=== PATIENT | female | born 1960 | race African-American/Black ===

== ENCOUNTER 2017-07-14 14:13 | Emergency (ER) | payer OTHER ==
[2017-07-14 14:19] VITALS: BMI 29.2
--- NOTE | 2017-07-14 16:36 | PDOC ---
History of Present Illness - General History Source: Patient Exam Limitations: No Limitations - History of Present Illness Travel History: No Initial Comments: 07/14/17 16:33 56 yr female history of diverticulosis c/o one week LLQ pain getting worse. Pt saw one week ago for the pain dx with virus. Pt states pain is worse, no vomiting or diarrhea or constipation , positive chills. Timing/Duration: reports: constant, getting worse Abdominal Pain Onset Location: reports: LLQ Pain Radiation: reports: no radiation <Geri Soto - Last Filed: 07/14/17 19:06> <Naeem Patel - Last Filed: 07/14/17 22:53> - General Chief Complaint: Pain Stated Complaint: ABD PAIN Time Seen by Provider: 07/14/17 16:31 Past History - Past Medical History Anemia: Yes Asthma: Yes Cancer: No Cardiac Disorders: Yes (HEART MURMUR) CVA: No COPD: No CHF: No Dementia: No Diabetes: No GI Disorders: Yes (DIVERTICULOSIS) Disorders: No HTN: Yes Hypercholesterolemia: No Liver Disease: No Seizures: No Thyroid Disease: No - Surgical History Abdominal Surgery: No Appendectomy: No Cardiac Surgery: No Cholecystectomy: No Lung Surgery: No Neurologic Surgery: No Orthopedic Surgery: Yes (FOOT SURGERY AT 10 YEARS OLD,TONSILLECTOMY) - Immunization History Immunization Up to Date: Yes - Suicide/Smoking/Psychosocial Hx Smoking Status: No Smoking History: Never smoked Have you smoked in the past 12 months: No Number of Cigarettes Smoked Daily: 0 Hx Alcohol Use: No Drug/Substance Use Hx: No Substance Use Type: None Hx Substance Use Treatment: No <Geri Soto - Last Filed: 07/14/17 19:06> <Naeem Patel - Last Filed: 07/14/17 22:53> - Past Medical History Allergies/Adverse Reactions: Allergies Allergy/AdvReac Type Severity Reaction Status Date / Time shellfish derived Allergy Difficulty Verified 07/14/17 14:19 Breathing aspirin AdvReac Nausea Verified 07/14/17 14:19 Home Medications: Ambulatory Orders Lisinopril [Prinivil -] 40 mg PO DAILY #0 tablet 07/29/13 Albuterol Sulfate Inhaler - [Ventolin HFA Inhaler -] 2 inhaler IH DAILY PRN Amlodipine Besylate [Norvasc -] 5 mg PO DAILY 11/15/13 Lipase/Protease/Amylase [Zenpep Dr 15,000 Units Capsule] 1 each PO TID 11/15/13 Ciprofloxacin [Cipro (Restricted To Id)] 500 mg PO BID #20 tablet 07/14/17 Metronidazole [Flagyl -] 500 mg PO BID #20 tablet 07/14/17 Oxycodone HCl/Acetaminophen [Percocet 10-325 mg Tablet] 1 each PO Q6H PRN #20 tablet MDD 4 tabs 07/14/17 *Physical Exam - Vital Signs Last Vital Signs Temp Pulse Resp BP Pulse Ox 98.3 F 103 H 20 115/78 97 07/14/17 14:17 07/14/17 14:17 07/14/17 14:17 07/14/17 14:17 07/14/17 14:17 - Physical Exam General Appearance: Yes: Nourished, Appropriately Dressed HEENT: positive: EOMI, MANDO Neck: positive: Supple. negative: Tender Respiratory/Chest: positive: Lungs Clear, Normal Breath Sounds. negative: Chest Tender Cardiovascular: positive: Regular Rhythm, Regular Rate Gastrointestinal/Abdominal: positive: Normal Bowel Sounds, Tender (LLQ ), Soft, Tenderness. negative: Guarding, Rebound Musculoskeletal: positive: Normal Inspection Extremity: positive: Normal Capillary Refill, Normal Inspection, Normal Range of Motion Integumentary: positive: Normal Color, Dry, Warm Neurologic: positive: Fully Oriented, Alert, Normal Mood/Affect, Normal Response , Motor Strength 5/5 <Geri Soto - Last Filed: 07/14/17 19:06> - Vital Signs Last Vital Signs Temp Pulse Resp BP Pulse Ox 98.3 F 103 H 20 115/78 97 07/14/17 14:17 07/14/17 14:17 07/14/17 14:17 07/14/17 14:17 07/14/17 14:17 <Naeem Patel - Last Filed: 07/14/17 22:53> ED Treatment Course - LABORATORY CBC & Chemistry Diagram: 07/14/17 17:40 07/14/17 17:40 - Consult/PCP Time Called: 16:46 Case discussed with personal care physician: Jermaine Boo <Geri Soto - Last Filed: 07/14/17 19:06> - LABORATORY CBC & Chemistry Diagram: 07/14/17 17:40 07/14/17 17:40 - ADDITIONAL ORDERS Additional order review: Laboratory Results 07/14/17 07/14/17 19:20 17:40 Sodium 137 Potassium 3.7 D Chloride 103 Carbon Dioxide 28 Anion Gap 6 L BUN 12 D Creatinine 1.0 Creat Clearance w eGFR 56.95 Random Glucose 70 L Calcium 9.7 Total Bilirubin 0.3 D AST 15 ALT 19 Alkaline Phosphatase 127 H Total Protein 7.5 Albumin 3.8 Urine Color Straw Urine Appearance Clear Urine pH 7.0 Urine Protein Negative Urine Glucose (UA) Negative Urine Ketones Negative Urine Blood Negative Urine Nitrite Negative Urine Bilirubin Negative Urine Urobilinogen Negative Urine RBC 1 Urine WBC 1 Ur Epithelial Cells Rare 07/14/17 17:40 RBC 5.01 MCV 82.2 MCHC 34.2 RDW 13.8 MPV 7.7 Neutrophils % 50.8 Lymphocytes % 38.8 Monocytes % 8.5 Eosinophils % 0.5 Basophils % 1.4 - Medications Given in the ED: ED Medications Discontinued Medications Generic Name Dose Route Start Last Admin Trade Name Cindy PRN Reason Stop Dose Admin Acetaminophen 1,000 mg 07/14/17 16:46 07/14/17 18:09 Ofirmev Injection - IVPB 07/14/17 16:47 1,000 mg ONCE ONE Administration Diphenhydramine HCl 50 mg 07/14/17 20:02 07/14/17 20:22 Benadryl Injection - IVPUSH 07/14/17 20:03 50 mg ONCE ONE Administration Sodium Chloride 500 mls @ 500 mls/hr 07/14/17 20:03 07/14/17 20:22 Normal Saline - IV 07/14/17 21:02 500 mls/hr ASDIR STA Administration Methylprednisolone Sodium Succinate 125 mg 07/14/17 20:02 07/14/17 20:22 Solu-Medrol - IVPB 07/14/17 20:03 125 mg ONCE ONE Administration Morphine Sulfate 4 mg 07/14/17 18:06 07/14/17 18:09 Morphine Injection - IVPUSH 07/14/17 18:07 4 mg ONCE ONE Administration Sodium Chloride 1,000 ml 07/14/17 16:39 07/14/17 18:08 Normal Saline - IV 07/14/17 16:40 1,000 ml ONCE ONE Administration <Naeem Patel - Last Filed: 07/14/17 22:53> Medical Decision Making - Medical Decision Making 07/14/17 16:41 cc: LLQ pain for one week getting worse hx diverticulosis , states this feels the same as in the past denies fever or chills will check labs, IVF NPO, consult with pt's GI 07/14/17 16:50 pt states she was called in prescriptions to her pharmacy yesterday ( antibiotics by ) however pt was unable to pick them up . 07/14/17 17:11 second page to 07/14/17 17:25 07/14/17 19:06 signed out to GEORGE Benson awaiting lab results CT result. <Geri Soto - Last Filed: 07/14/17 19:06> *DC/Admit/Observation/Transfer <Geri Soto - Last Filed: 07/14/17 19:06> - Discharge Dispostion Admit: No <Naeem Patel - Last Filed: 07/14/17 22:53> Diagnosis at time of Disposition: Diverticulitis Qualifiers: Diverticulitis site: unspecified part of intestinal tract Diverticulitis bleeding: without bleeding Diverticulitis complication: without perforation or abscess Qualified Code(s): K57.92 - Diverticulitis of intestine, part unspecified, without perforation or abscess without bleeding - Discharge Dispostion Disposition: HOME Condition at time of disposition: Stable - Prescriptions Prescriptions: Ciprofloxacin [Cipro (Restricted To Id)] 500 mg PO BID #20 tablet Metronidazole [Flagyl -] 500 mg PO BID #20 tablet Oxycodone HCl/Acetaminophen [Percocet 10-325 mg Tablet] 1 each PO Q6H PRN #20 tablet MDD 4 tabs PRN Reason: Severe Pain - Referrals Referrals: Lance Garg MD [Primary Care Provider] - Jermaine Boo MD [Staff Physician] - - Patient Instructions Printed Discharge Instructions: DI for Diverticulitis Additional Instructions: Follow up with Dr. Boo this week for further evaluation. Take medications as prescribed. Do not drive, drink alcohol or operate heavy machinery while taking Percocet. Print Language: JORDANIAN
[2017-07-14] MEDS ORDERED: SODIUM CHLORIDE 0.9% 1000 ML INFUS.BAG IV ONE (16:39)
[2017-07-14] MEDS ORDERED: ACETAMINOPHEN 1000 MG/100 ML VIAL (NON FORMULARY) IVPB ONE (16:46)
[2017-07-14 17:48] LABS: BASOPHIL 1.4 % (0-2.0); EOSINOPHIL 0.5 % (0-4.5); MCH 28.1 pg (25.7-33.7); MCHC 34.2 g/dl (32.0-36.0); MEAN CELL VOLUME 82.2 fl (80-96); MEAN PLT VOLUME 7.7 fl (7.5-11.1); NEUTROPHILS 50.8 % (42.8-82.8); PLATELET COUNT 379 K/MM3 (134-434); RDW 13.8 % (11.6-15.6); WHITE BLOOD COUNT 6.8 K/mm3 (4.0-10.0)
[2017-07-14] MEDS ORDERED: morphine CARPU-JECT 4 MG/1 ML DISP.SYRIN IVPUSH ONE (18:06)
[2017-07-14] MEDS ORDERED: morphine CARPU-JECT 4 MG/1 ML DISP.SYRIN ONE (18:08)
[2017-07-14] MEDS ORDERED: ACETAMINOPHEN INJECTION 100 ML IVPB ONE (18:08)
--- NOTE | 2017-07-14 18:09 | PDOC ---
*Physical Exam - Vital Signs Last Vital Signs Temp Pulse Resp BP Pulse Ox 98.3 F 103 H 20 115/78 97 07/14/17 14:17 07/14/17 14:17 07/14/17 14:17 07/14/17 14:17 07/14/17 14:17 - Physical Exam Comments: 07/14/17 18:08 The patient was examined by [GEORGE Soto] under my direct supervision. I personally evaluated the patient. I concur with the above findings and the plan of care. ED Treatment Course - LABORATORY CBC & Chemistry Diagram: 07/14/17 17:40 07/14/17 17:40 - ADDITIONAL ORDERS Additional order review: 07/14/17 17:40 RBC 5.01 MCV 82.2 MCHC 34.2 RDW 13.8 MPV 7.7 Neutrophils % 50.8 Lymphocytes % 38.8 Monocytes % 8.5 Eosinophils % 0.5 Basophils % 1.4 - Consult/PCP Time Called: 16:46 Case discussed with personal care physician: Jermaine Boo
[2017-07-14 18:17] LABS: ALBUMIN 3.8 g/dl (3.4-5.0); ALK PHOS 127 U/L (45-117); ANION GAP 6 (8-16); BILIRUBIN,TOTAL 0.3 mg/dL (0.2-1.0); CALCIUM 9.7 mg/dL (8.5-10.1); CO2 28 mmol/L (21-32); GLUCOSE,RANDOM 70 mg/dL (74-106); SGOT/AST 15 U/L (15-37); SGPT/ALT 19 U/L (12-78); TOT PROT 7.5 g/dl (6.4-8.2)
[2017-07-14 19:29] LABS: URINE APPEARANCE CLEAR; URINE BILIRUBIN NEGATIVE (NEGATIVE); URINE BLOOD NEGATIVE (NEGATIVE); URINE COLOR STRAW; URINE GLUCOSE (UA) NEGATIVE (NEGATIVE); URINE KETONE NEGATIVE (NEGATIVE); URINE LEUK ESTERASE TRACE (NEGATIVE); URINE NITRITE NEGATIVE (NEGATIVE); URINE PROTEIN NEGATIVE (NEGATIVE); URINE UROBILINOGEN NEGATIVE mg/dL (0.2-1.0)
[2017-07-14 19:34] LABS: URINE RBC 1 /hpf (0-3); URINE WBC 1 /hpf (3-5)
[2017-07-14] MEDS ORDERED: methylPREDNISolone NA SUCC 125 MG/2 ML VIAL IVPB ONE (20:02)
[2017-07-14] MEDS ORDERED: SODIUM CHLORIDE 500 ML IV STA (20:03)
[2017-07-14] MEDS ORDERED: methylPREDNISolone NA SUCC 125 MG/2 ML VIAL ONE (20:07)
[2017-07-14] MEDS ORDERED: metroNIDAZOLE 500 MG TABLET PO ONE (22:28)
[2017-07-14] MEDS ORDERED: LEVOFLOXACIN 750 MG TABLET PO ONE (22:28)
[2017-07-14] MEDS ORDERED: metroNIDAZOLE 250 MG TABLET ONE (22:45)
[2017-07-14] MEDS ORDERED: LEVOFLOXACIN 250 MG TABLET (FP) ONE (22:46)
[2017-07-14] MEDS ORDERED: LEVOFLOXACIN 500 MG TABLET (FP) ONE (22:46)
[2017-07-14 23:09] VITALS: BP 121/72; PULSE 88; TEMP 98.6
== END 2017-07-14 23:09 | disposition home or self-care (01) ==
LOC: JER 14:13
PROC: 3E033GC Introduction of Other Therapeutic Substance into Peripheral Vein, Percutaneous Approach (ICD-10-PCS; principal; 2017-07-14)
PROC: 3E033NZ Introduction of Analgesics, Hypnotics, Sedatives into Peripheral Vein, Percutaneous Approach (ICD-10-PCS; 2017-07-14)
PROC: 3E03329 Introduction of Other Anti-infective into Peripheral Vein, Percutaneous Approach (ICD-10-PCS; 2017-07-14)
PROC: 3E0337Z Introduction of Electrolytic and Water Balance Substance into Peripheral Vein, Percutaneous Approach (ICD-10-PCS; 2017-07-14)
DX: K57.92 Diverticulitis of intestine, part unspecified, without perforation or abscess without bleeding (principal); R01.1 Cardiac murmur, unspecified; I10 Essential (primary) hypertension; J45.909 Unspecified asthma, uncomplicated
CPT/HCPCS: 36415; 74177-TC; 80053; 81003; 81015; 85025; 87086; 87186; 99284-25

== ENCOUNTER 2017-09-06 19:05 | Inpatient (IN) | payer OTHER ==
--- NOTE | 2017-09-06 19:17 | PDOC ---
History of Present Illness - History of Present Illness Initial Comments: 09/06/17 20:10 56 year old female, with significant past medical history of gallstones, IBS, diverticulosis, and endometriosis, who presents to the emergency room complaining of epigastric pain that started last night after eating dinner. She describes the pain as burning. She did not eat today secondary to the pain. She also notes right lower quadrant pain that is sharp. She denies nausea, vomiting. She notes that she has chronic diarrhea secondary to IBS. Her last bowel movement was yesterday and was loose. Denies fever, chills, nausea, vomiting. Denies hematuria, dysuria, urinary frequency. Denies chest pain, SOB, cough Denies constipation. PAST MEDICAL HISTORY: gallstones, IBS, diverticulosis, and endometriosis, PAST SURGICAL HISTORY: hysterectomy MEDICATIONS: reviewed ALLERGIES: Shellfish, aspirin PMD: Dr. Garg Gastro: Dr. Boo Review of Symptoms General: No fevers or chills, no weakness, no weight loss HEENT: No change in vision. No sore throat, No ear pain CardioVascular: No chest pain or shortness of breath Respiratory:No cough, or wheezing. Gastrointestinal: +epigastric pain, RLQ pain. no nausea, vomiting, or constipation, No rectal bleeding Genitourinary: No dysuria, hematuria, or frequency Musculoskeletal: No joint or muscle pain or swelling Neurologic: No headache, vertigo, dizziness or loss of consciousness Psychiatric: nor depression Skin: No rashes or easy bruising Endocrine: no increased thirst or abnormal weight change Allergic: no skin or latex allergy All other systems reviewed and normal Physical Exam General: Well-nourished well-developed individual, no acute distress HEENT: Throat: +dry mucous membranes. tonsils normal, no erythema or exudate Neck: Supple, no meningeal signs, no lymphadenopathy Eyes::Pupils equal reactive and round, extraocular motion intact Cardiac: S1-S2 normal, regular rate and rhythm, no murmurs rubs or gallops Respiratory: Lungs clear to auscultation bilateral Abdomen: +mildly tender to palpation over the RLQ and epigastric area. +Mildly distended. Soft, normal bowel sounds Skin: No rashes Psych: Normal mood and affect 09/06/17 21:39 <Marlys Moss - Last Filed: 09/06/17 21:39> - General History Source: Patient Exam Limitations: No Limitations - History of Present Illness Initial Comments: 09/06/17 20:21 A portion of this note was documented by scribe services under my direction. I have reviewed the details of the note, within reason, and agree with the documentation. The case summary and management plan written by me. Medical decision making: This is a 56-year-old female who comes in with abdominal pain. Patient has long history of irritable bowel syndrome. Patient on exam is tender epigastric as well as right lower quadrant. Patient was recently diagnosed with gallstones as well. We will order labs: CBC, comp and UA Gallbladder ultrasound 20:20 Was notified by nursing that patient's potassium was low at 2.8. 40 mEq of potassium were ordered IV as patient is feeling nauseous and will be able to tolerate a by mouth. In addition patient's alkaline phosphatase is mildly elevated and her urine was positive for blood Ultrasound of gallbladder and kidneys ordered 09/06/17 22:59 Ultrasound shows multiple gallstones and cholesterol granulomas with sludge. With positive Carson sign Discussed case with Dr. Williamson who well be surgical consult for probable removal of the gallbladder tomorrow. Due to patient's hypokalemia patient is being repleted initially IV but the IV was too uncomfortable so given oral potassium. A shot will be admitted to the hospitalist service for medical clearance and management of her hypokalemia. <Rodo Augustine I - Last Filed: 09/06/17 23:12> - General Chief Complaint: Pain Stated Complaint: ABD PAIN Time Seen by Provider: 09/06/17 19:17 Past History <Marlys Moss - Last Filed: 09/06/17 21:39> - Past Medical History Anemia: Yes Asthma: Yes Cancer: No Cardiac Disorders: Yes (HEART MURMUR) CVA: No COPD: No CHF: No Dementia: No Diabetes: No GI Disorders: Yes (DIVERTICULOSIS) Disorders: No HTN: Yes Hypercholesterolemia: No Liver Disease: No Seizures: No Thyroid Disease: No - Surgical History Abdominal Surgery: No Appendectomy: No Cardiac Surgery: No Cholecystectomy: No Lung Surgery: No Neurologic Surgery: No Orthopedic Surgery: Yes (FOOT SURGERY AT 10 YEARS OLD,TONSILLECTOMY) - Immunization History Immunization Up to Date: Yes - Suicide/Smoking/Psychosocial Hx Smoking Status: No Smoking History: Never smoked Have you smoked in the past 12 months: No Number of Cigarettes Smoked Daily: 0 Hx Alcohol Use: No Drug/Substance Use Hx: No Substance Use Type: None Hx Substance Use Treatment: No <Rodo Augustine I - Last Filed: 09/06/17 23:12> - Past Medical History Allergies/Adverse Reactions: Allergies Allergy/AdvReac Type Severity Reaction Status Date / Time shellfish derived Allergy Difficulty Verified 09/06/17 19:08 Breathing aspirin AdvReac Nausea Verified 09/06/17 19:08 Home Medications: Ambulatory Orders Lisinopril [Prinivil -] 40 mg PO DAILY #0 tablet 07/29/13 Amlodipine Besylate [Norvasc -] 5 mg PO DAILY 11/15/13 Lipase/Protease/Amylase [Creon Dr 3,000 Units Capsule] 1 each PO ASDIR 09/06/17 *Physical Exam - Vital Signs Last Vital Signs Temp Pulse Resp BP Pulse Ox 98.1 F 92 H 18 144/88 98 09/06/17 19:05 09/06/17 19:05 09/06/17 19:05 09/06/17 19:05 09/06/17 19:05 <Marlys Moss - Last Filed: 09/06/17 21:39> ED Treatment Course - LABORATORY CBC & Chemistry Diagram: 09/06/17 19:30 09/06/17 19:30 - ADDITIONAL ORDERS Additional order review: Laboratory Results 09/06/17 09/06/17 09/06/17 19:30 19:30 19:30 Sodium 138 Potassium 2.8 L* Chloride 103 Carbon Dioxide 25 Anion Gap 10 BUN 8 Creatinine 1.0 Creat Clearance w eGFR 56.95 Random Glucose 80 Calcium 9.7 Total Bilirubin 0.3 AST 29 ALT 27 Alkaline Phosphatase 104 H Creatine Kinase 103 Troponin I < 0.03 L Total Protein 7.4 Albumin 4.4 Lipase 44 Urine Color Yellow Urine Appearance Clear Urine pH 6.5 Ur Specific [place] 1.010 Urine Protein Negative Urine Glucose (UA) Negative Urine Ketones Negative Urine Blood 2+ H Urine Nitrite Negative Urine Bilirubin Negative Urine Urobilinogen 0.2 Ur Leukocyte Esterase Negative 09/06/17 19:30 RBC 4.59 MCV 83.0 MCHC 33.5 RDW 12.8 MPV 8.9 Neutrophils % 50.6 Lymphocytes % 39.5 Monocytes % 7.4 Eosinophils % 0.5 Basophils % 2.0 - Medications Given in the ED: ED Medications Discontinued Medications Generic Name Dose Route Start Last Admin Trade Name Cindy PRN Reason Stop Dose Admin Ketorolac Tromethamine 30 mg 09/06/17 19:28 09/06/17 19:30 Toradol Injection - IVPUSH 09/06/17 19:29 30 mg ONCE ONE Administration Morphine Sulfate 2 mg 09/06/17 19:28 09/06/17 19:40 Morphine Injection - IVPUSH 09/06/17 19:29 2 mg ONCE ONE Administration <Marlys Moss - Last Filed: 09/06/17 21:39> - LABORATORY CBC & Chemistry Diagram: 09/06/17 19:30 09/06/17 19:30 <Rodo Augustine I - Last Filed: 09/06/17 23:12> *DC/Admit/Observation/Transfer - Attestations Scribe Attestion: 09/06/17 20:10 Documentation prepared by HAYLEY Talley, acting as medical claims analyst for Rodo Augustine MD/DO. <Marlys Moss - Last Filed: 09/06/17 21:39> - Discharge Dispostion Admit: Yes <Rodo Augustine I - Last Filed: 09/06/17 23:12> Diagnosis at time of Disposition: Cholecystitis, Hypokalemia - Discharge Dispostion Condition at time of disposition: Stable - Referrals Referrals: Lance Garg MD [Primary Care Provider] - - Patient Instructions - Post Discharge Activity
[2017-09-06 19:19] VITALS: BMI 27.3
[2017-09-06] MEDS ORDERED: SODIUM CHLORIDE 1,000 ML IV ONE (19:27)
[2017-09-06] MEDS ORDERED: morphine CARPU-JECT 2 MG/1 ML DISP.SYRIN IVPUSH ONE (19:28)
[2017-09-06] MEDS ORDERED: KETOROLAC TROMETHAMINE 30 MG/1 ML VIAL IVPUSH ONE (19:28)
[2017-09-06] MEDS ORDERED: KETOROLAC TROMETHAMINE 30 MG/1 ML VIAL ONE (19:30)
[2017-09-06] MEDS ORDERED: morphine CARPU-JECT 2 MG/1 ML DISP.SYRIN ONE (19:31)
[2017-09-06 19:43] LABS: PH,URINE 6.5 (4.5-8); URINE APPEARANCE Clear; URINE BILIRUBIN Negative (NEGATIVE); URINE GLUCOSE (UA) Negative (NEGATIVE); URINE KETONE Negative (NEGATIVE); URINE LEUK ESTERASE Negative (NEGATIVE); URINE NITRITE Negative (NEGATIVE); URINE PROTEIN Negative (NEGATIVE); URINE UROBILINOGEN 0.2 (0.2-1.0)
[2017-09-06 19:44] LABS: URINE BLOOD 2+ (NEGATIVE); URINE COLOR YELLOW
[2017-09-06 19:48] LABS: EOSINOPHIL 0.5 % (0-4.5); MCH 27.8 pg (25.7-33.7); MCHC 33.5 g/dl (32.0-36.0); MEAN PLT VOLUME 8.9 fl (7.5-11.1); NEUTROPHILS 50.6 % (42.8-82.8); PLATELET COUNT 313 K/MM3 (134-434); RDW 12.8 % (11.6-15.6); WHITE BLOOD COUNT 5.3 K/mm3 (4.0-10.8)
[2017-09-06 20:00] LABS: ALBUMIN 4.4 g/dl (3.5-5.0); ALK PHOS 104 U/L (32-92); ANION GAP 10 (8-16); BILIRUBIN,TOTAL 0.3 mg/dl (0.2-1.0); CALCIUM 9.7 mg/dl (8.4-10.2); CO2 25 mmol/L (22-28); GLUCOSE,RANDOM 80 mg/dl (74-106); SGOT/AST 29 U/L (10-42); SGPT/ALT 27 U/L (10-40); TOT PROT 7.4 g/dl (6.4-8.3)
[2017-09-06 20:01] LABS: CPK 103 IU/L (26-192)
[2017-09-06 20:09] LABS: TROPONIN I (DFP) < 0.03 ng/ml (0.03-0.50)
[2017-09-06] MEDS: KCL 10 MEQ IVPB 10 MEQ/100 ML INFUS.BAG IVPB SCH ×2 (20:20→22:21)
[2017-09-06] MEDS ORDERED: KCL 10 MEQ IVPB 10 MEQ/100 ML INFUS.BAG IVPB ONE ×2 (20:23→22:05)
[2017-09-06 22:07] LABS: URINE BACTERIA FEW /hpf (NEGATIVE); URINE WBC 0-2 (0-5)
[2017-09-06] MEDS ORDERED: POTASSIUM CHLORIDE TABS 20 MEQ TABLET.ER (FP) PO ONE ×3 (22:33→22:45)
[2017-09-06] MEDS ORDERED: DEXTROSE 5%-0.45% SALINE 1,000 ML IV SCH (23:45)
[2017-09-07] MEDS: KCL 10 MEQ IVPB 10 MEQ/100 ML INFUS.BAG IVPB SCH (00:22)
--- NOTE | 2017-09-07 00:54 | HP ---
CHIEF COMPLAINT: Abdominal Pain, Back Pain PCP: Dr. Lance Garg HISTORY OF PRESENT ILLNESS: This is a 56 y/o woman with a past medical history of IBS, Trigemenial Neuralgia. Who presents to the ED with sharp, burning and cramping of the right lower abdomen x 2 days. Patient reports the pain started after eating food. Patient reports having nausea and vomiting, loose stools, with generalized weakness. Patient reports having pain to her right lower back/flank x 1 day, denies hematuria. Patient denies fever, chills, cough, SOB, CP, constipation, dysuria. ER course was notable for: (1) CTAP- cholelithiasis, no acute cholecystitis (2) K- 2.8 (3) Recent Travel: None PAST MEDICAL HISTORY: IBS Trigemenial Neuralgia Endometriosis Chronic Back Pain PAST SURGICAL HISTORY: Hysterectomy Social History: Smoking: Never Alcohol: None Drugs: None Family History: Mother: HTN, Migraines Father: OR, age 53 Hfaxgugwvjof-Dhuiz-Fjdzau: HTN, Asthma, DM, Migraines, Diverticulosis, Spinal Cyotosis Allergies shellfish derived Allergy (Verified 09/06/17 19:08) Difficulty Breathing aspirin Adverse Reaction (Verified 09/06/17 19:08) Nausea HOME MEDICATIONS: Home Medications Medication Instructions Recorded Lisinopril [Prinivil -] 40 mg PO DAILY #0 tablet 07/29/13 Amlodipine Besylate [Norvasc -] 5 mg PO DAILY 11/15/13 Lipase/Protease/Amylase [Ghislaine Calvillo 1 each PO ASDIR 09/06/17 3,000 Units Capsule] REVIEW OF SYSTEMS CONSTITUTIONAL: generalized weakness Absent: fever, chills, diaphoresis, malaise, loss of appetite, weight change HEENT: Absent: rhinorrhea, nasal congestion, throat pain, throat swelling, difficulty swallowing, mouth swelling, ear pain, eye pain, visual changes CARDIOVASCULAR: Absent: chest pain, syncope, palpitations, irregular heart rate, lightheadedness , peripheral edema RESPIRATORY: Absent: cough, shortness of breath, dyspnea with exertion, orthopnea, wheezing, stridor, hemoptysis GASTROINTESTINAL: Absent: abdominal pain, abdominal distension, nausea, vomiting, diarrhea, constipation, melena, hematochezia GENITOURINARY: Absent: dysuria, frequency, urgency, hesitancy, hematuria, flank pain, genital pain MUSCULOSKELETAL: myalgia, arthralgia,back pain, Absent: myalgia, arthralgia, joint swelling, back pain, neck pain SKIN: Absent: rash, itching, pallor HEMATOLOGIC/IMMUNOLOGIC: Absent: easy bleeding, easy bruising, lymphadenopathy, frequent infections ENDOCRINE: Absent: unexplained weight gain, unexplained weight loss, heat intolerance, cold intolerance NEUROLOGIC: Absent: headache, focal weakness or paresthesias, dizziness, unsteady gait, seizure, mental status changes, bladder or bowel incontinence PSYCHIATRIC: Absent: anxiety, depression, suicidal or homicidal ideation, hallucinations. PHYSICAL EXAMINATION Vital Signs - 24 hr 09/06/17 09/06/17 09/06/17 19:05 23:32 23:39 Temperature 98.1 F 98.1 F Pulse Rate 92 H 96 H Pulse Rate [ 90 Left] Respiratory 18 18 20 Rate Blood Pressure 144/88 128/85 Blood Pressure 131/85 [Right] O2 Sat by Pulse 98 100 100 Oximetry (%) 09/06/17 23:44 Temperature 98.1 F Pulse Rate 96 H Pulse Rate [ Left] Respiratory 20 Rate Blood Pressure 128/85 Blood Pressure [Right] O2 Sat by Pulse Oximetry (%) GENERAL: Awake, alert, and fully oriented, in no acute distress. HEAD: Normal with no signs of trauma. EYES: Pupils equal, round and reactive to light, extraocular movements intact, sclera anicteric, conjunctiva clear. No lid lag. EARS, NOSE, THROAT: Ears normal, nares patent, oropharynx clear without exudates. Dry mucous membranes. NECK: Normal range of motion, supple without lymphadenopathy, JVD, or masses. LUNGS: Breath sounds equal, clear to auscultation bilaterally. No wheezes, and no crackles. No accessory muscle use. HEART: Regular rate and rhythm, normal S1 and S2 without murmur, rub or gallop. ABDOMEN: Soft, not distended, normoactive bowel sounds, no guarding, no rebound , no masses. No hepatomegaly or splenomegaly. +generalized tenderness MUSCULOSKELETAL: Normal range of motion at all joints. No bony deformities or tenderness. No R-CVA tenderness. L- CVA tenderness, UPPER EXTREMITIES: 2+ pulses, warm, well-perfused. No cyanosis. No clubbing. No peripheral edema. LOWER EXTREMITIES: 2+ pulses, warm, well-perfused. No calf tenderness. No peripheral edema. NEUROLOGICAL: Cranial nerves II-XII intact. Normal speech. Normal gait. PSYCHIATRIC: Cooperative. Good eye contact. Appropriate mood and affect. SKIN: Warm, dry, normal turgor, no rashes or lesions noted, normal capillary refill. Laboratory Results - last 24 hr 09/06/17 09/06/17 09/06/17 19:30 19:30 19:30 WBC 5.3 RBC 4.59 Hgb 12.8 Hct 38.1 MCV 83.0 MCH 27.8 MCHC 33.5 RDW 12.8 Plt Count 313 MPV 8.9 Neutrophils % 50.6 Lymphocytes % 39.5 Monocytes % 7.4 Eosinophils % 0.5 Basophils % 2.0 Sodium 138 Potassium 2.8 L* Chloride 103 Carbon Dioxide 25 Anion Gap 10 BUN 8 Creatinine 1.0 Creat Clearance w eGFR 56.95 Random Glucose 80 Calcium 9.7 Total Bilirubin 0.3 AST 29 ALT 27 Alkaline Phosphatase 104 H Creatine Kinase Troponin I Total Protein 7.4 Albumin 4.4 Lipase 44 Urine Color Yellow Urine Appearance Clear Urine pH 6.5 Ur Specific [place] 1.010 Urine Protein Negative Urine Glucose (UA) Negative Urine Ketones Negative Urine Blood 2+ H Urine Nitrite Negative Urine Bilirubin Negative Urine Urobilinogen 0.2 Ur Leukocyte Esterase Negative Urine RBC 5-10 Urine WBC 0-2 Urine Bacteria Few 09/06/17 19:30 WBC RBC Hgb Hct MCV MCH MCHC RDW Plt Count MPV Neutrophils % Lymphocytes % Monocytes % Eosinophils % Basophils % Sodium Potassium Chloride Carbon Dioxide Anion Gap BUN Creatinine Creat Clearance w eGFR Random Glucose Calcium Total Bilirubin AST ALT Alkaline Phosphatase Creatine Kinase 103 Troponin I < 0.03 L Total Protein Albumin Lipase Urine Color Urine Appearance Urine pH Ur Specific [place] Urine Protein Urine Glucose (UA) Urine Ketones Urine Blood Urine Nitrite Urine Bilirubin Urine Urobilinogen Ur Leukocyte Esterase Urine RBC Urine WBC Urine Bacteria ASSESSMENT/PLAN: This is a 56 y/o woman with a PMHx of: IBS, Trigeminal Neuralgia. Admitted to M/ S Cholelithiasis, Acute Hypokalemia for further evaluation of their emergent condition. Plan: 1. Cholelithiasis - CTAP- multiple gallstones and cholesterol granulomas with a questionable sludge, without sonographic evidence of acute cholecystitis. Spa Assistant Manager reported positive Carson's sign. Slightly coarse echotexture of the liver. Rule out mild fatty infiltration. Small right and left renal angiomyolipoma - No leukocytosis, no lactic acidemia, pt is afebrile - Appreciate Surgical Consult - NPO - IVF - Morphine Sulfate prn - Repeat CBC, BMP in am 2. Hypokalemia - Likely secondary to excessive vomiting/loose stools - K-riders, KCL PO given in ED - Will repeat BMP at 2am, and replete as indicated - EKG- NSR no ST or TWI 3. IBS - Continue to monitor and treat with interventions accordingly - Appreciate GI Consult 4. Trigeminal Neuralgia - Continue to monitor 5. FEN - D51/2NS@75ml/hr - Replete K as indicated, monitor BMP - NPO 6. DVT Prophylaxis - OOB - SCDs - Heparin SQ Code Status: Full Code Dispo: Requires Inpatient Care Problem List - Problem (1) Cholelithiasis Code(s): K80.20 - CALCULUS OF GALLBLADDER W/O CHOLECYSTITIS W/O OBSTRUCTION (2) Hypokalemia Code(s): E87.6 - HYPOKALEMIA (3) IBS (irritable bowel syndrome) Code(s): K58.9 - IRRITABLE BOWEL SYNDROME WITHOUT DIARRHEA (4) Trigeminal neuralgia Code(s): G50.0 - TRIGEMINAL NEURALGIA (5) DVT prophylaxis Code(s): [id number] - Visit type - Emergency Visit Emergency Visit: Yes ED Registration Date: 09/06/17 Care time: The patient presented to the Emergency Department on the above date and was hospitalized for further evaluation of their emergent condition. - New Patient This patient is new to me today: Yes Date on this admission: 09/06/17 - Critical Care Critical Care patient: No
[2017-09-07] MEDS ORDERED: ONDANSETRON 4 MG/2 ML VIAL IVPUSH PRN (01:39)
[2017-09-07 02:51] LABS: ANION GAP 8 (8-16); CALCIUM 8.4 mg/dL (8.5-10.1); CO2 26 mmol/L (21-32); CREATININE 0.7 mg/dL (0.55-1.02); GLUCOSE,RANDOM 91 mg/dL (74-106)
[2017-09-07 07:53] LABS: ANION GAP 7 (8-16); CALCIUM 8.7 mg/dl (8.4-10.2); CO2 25 mmol/L (22-28); CREATININE 0.7 mg/dl (0.6-1.3); GLUCOSE,RANDOM 94 mg/dl (74-106); MAGNESIUM 1.5 mg/dL (1.8-2.4); PHOSPHOROUS 3.3 mg/dl (2.5-4.6)
[2017-09-07] MEDS ORDERED: MAGNESIUM SULFATE 2 GM in SODIUM CHLORIDE 100 ML IVPB ONE (07:55)
--- NOTE | 2017-09-07 07:55 | PN ---
Physical Exam: SUBJECTIVE: Patient seen and examined, reports ongoing generalized abdominal pain, localized to right upper quadrant. OBJECTIVE: patient is a 56 y/o woman with a past medical history of IBS, Trigemenial Neuralgia. patient was admitted from the emergency department for emergent condition. Vital Signs Period Temp Pulse Resp BP Sys/Ramachandran Pulse Ox Last 24 Hr 98.0 F-98.1 F 81-96 18-20 103-144/57-88 98-100 GENERAL: The patient is awake, alert, and fully oriented, in no acute distress. HEAD: Normal with no signs of trauma. EYES: PERRL, extraocular movements intact, sclera anicteric, conjunctiva clear. No ptosis. ENT: Ears normal, nares patent, oropharynx clear without exudates, moist mucous membranes. NECK: Trachea midline, full range of motion, supple. LUNGS: Breath sounds equal, clear to auscultation bilaterally, no wheezes, no crackles, no accessory muscle use. HEART: Regular rate and rhythm, S1, S2 without murmur, rub or gallop. ABDOMEN: Soft, + carson's sign, nondistended, normoactive bowel sounds, no guarding, no rebound, no hepatosplenomegaly, no masses. EXTREMITIES: 2+ pulses, warm, well-perfused, no edema. NEUROLOGICAL: Cranial nerves II through XII grossly intact. Normal speech, gait not observed. PSYCH: Normal mood, normal affect. SKIN: Warm, dry, normal turgor, no rashes or lesions noted Laboratory Results - last 24 hr CBC WBC 5.8 K/mm3 (4.0-10.8) 09/07/17 06:58 RBC 4.17 M/mm3 (3.60-5.2) 09/07/17 06:58 Hgb 12.0 GM/dl (10.7-15.3) 09/07/17 06:58 Hct 34.5 % (32.4-45.2) 09/07/17 06:58 MCV 82.7 fl (80-96) 09/07/17 06:58 MCH 28.9 pg (25.7-33.7) 09/07/17 06:58 MCHC 34.9 g/dl (32.0-36.0) 09/07/17 06:58 RDW 13.0 % (11.6-15.6) 09/07/17 06:58 Plt Count 297 K/MM3 (134-434) 09/07/17 06:58 MPV 8.6 fl (7.5-11.1) 09/07/17 06:58 Neutrophils % 53.3 % (42.8-82.8) 09/07/17 06:58 Lymphocytes % 37.6 % (8-40) 09/07/17 06:58 Monocytes % 7.4 % (3.8-10.2) 09/07/17 06:58 Eosinophils % 1.1 % (0-4.5) D 09/07/17 06:58 Basophils % 0.6 % (0-2.0) 09/07/17 06:58 CMP Sodium 143 mmol/L (136-145) 09/07/17 06:58 Potassium 3.5 mmol/L (3.5-5.1) D 09/07/17 06:58 Chloride 111 mmol/L (98-107) H 09/07/17 06:58 Carbon Dioxide 25 mmol/L (22-28) 09/07/17 06:58 Anion Gap 7 (8-16) L 09/07/17 06:58 BUN 6 mg/dl (7-18) L D 09/07/17 06:58 Creatinine 0.7 mg/dl (0.6-1.3) D 09/07/17 06:58 Creat Clearance w eGFR 56.95 (>60) 09/06/17 19:30 Random Glucose 94 mg/dl (74-106) 09/07/17 06:58 Calcium 8.7 mg/dl (8.4-10.2) 09/07/17 06:58 Phosphorus 3.3 mg/dl (2.5-4.6) 09/07/17 06:58 Magnesium 1.5 mg/dL (1.8-2.4) L 09/07/17 06:58 Total Bilirubin 0.4 mg/dl (0.2-1.0) D 09/07/17 07:15 Direct Bilirubin < 0.2 mg/dL (0.0-0.3) 09/07/17 07:15 AST 20 U/L (10-42) D 09/07/17 07:15 ALT 22 U/L (10-40) 09/07/17 07:15 Alkaline Phosphatase 82 U/L (32-92) D 09/07/17 07:15 Creatine Kinase 103 IU/L (26-192) 09/06/17 19:30 Troponin I < 0.03 ng/ml (0.03-0.50) L 09/06/17 19:30 Total Protein 6.0 g/dl (6.4-8.3) L 09/07/17 07:15 Albumin 3.5 g/dl (3.5-5.0) D 09/07/17 07:15 Total Amylase 59 U/L (25-115) 09/07/17 01:55 Lipase 44 U/L (22-51) 09/06/17 19:30 Active Medications Generic Name Dose Route Start Last Admin Trade Name Freq PRN Reason Stop Dose Admin Heparin Sodium (Porcine) 5,000 unit 09/07/17 10:00 09/07/17 09:25 Heparin - SQ 5,000 unit BID DANNIELLE Administration Potassium Chloride/Dextrose/Sod Cl 20 meq in 1,000 mls @ 75 mls/hr 09/07/17 08 :00 09/07/17 09:22 D5-1/2ns+20 Meq Kcl - IV 75 mls/hr ASDIR DANNIELLE Administration Morphine Sulfate 2 mg 09/06/17 23:50 09/07/17 08:02 Morphine Injection - IVPUSH 2 mg Q6H PRN Administration PAIN Ondansetron HCl 4 mg 09/07/17 01:39 Zofran Injection IVPUSH Q6H PRN NAUSEA AND/OR VOMITING IMAGING right upper quadrant ultraound- multiple gallstones and cholesterol granulomas with a questionable sludge, without sonographic evidence of acute cholecystitis. Manufacturing Director reported positive Carson's sign. Slightly coarse echotexture of the liver. Rule out mild fatty infiltration. Small right and left renal angiomyolipoma ASSESSMENT/PLAN: 1. GI Cholelithiasis - No leukocytosis, no lactic acidemia, pt is afebrile, patient is pending hida scan tommorow at 930am - Surgery, Dr Williamson consulted and following - keep npo, ivf abdominal pain - likely secondary to IBS - morphine Sulfate prn - appreciate GI input, Dr Sawyer 2) card hypertension - hold norvasc and lisinopril for labile b/p F/E/N - D51/2NS w/20meg kci @75ml/hr hypokalemia - repeat bmp 3.5, potassium added to ivf, kci 40meq x 1 ordered - npo-->ivf DVT Prophylaxis - OOB - SCDs - Heparin SQ Code Status: Full Code Dispo: Requires Inpatient Care Visit type - Emergency Visit Emergency Visit: Yes ED Registration Date: 09/07/17 Care time: The patient presented to the Emergency Department on the above date and was hospitalized for further evaluation of their emergent condition. - New Patient This patient is new to me today: No - Critical Care Critical Care patient: No - Discharge Referral Referred to [facility] Med P.C.: No
[2017-09-07 07:56] LABS: BASOPHIL 0.6 % (0-2.0); EOSINOPHIL 1.1 % (0-4.5); MCH 28.9 pg (25.7-33.7); MCHC 34.9 g/dl (32.0-36.0); MEAN CELL VOLUME 82.7 fl (80-96); MEAN PLT VOLUME 8.6 fl (7.5-11.1); NEUTROPHILS 53.3 % (42.8-82.8); PLATELET COUNT 297 K/MM3 (134-434); WHITE BLOOD COUNT 5.8 K/mm3 (4.0-10.8)
[2017-09-07] MEDS: morphine CARPU-JECT 2 MG/1 ML DISP.SYRIN IVPUSH PRN ×3 (08:02→23:52)
[2017-09-07] MEDS ORDERED: MAGNESIUM SULF 50% (8.12 MEQ/2 ML-1 GM VIAL) IVPB ONE (09:00)
[2017-09-07] MEDS ORDERED: POTASSIUM CHLORIDE TABS 20 MEQ TABLET.ER (FP) PO ONE (09:00)
[2017-09-07] MEDS: D5-1/2NS+20 MEQ KCL - 20 MEQ/1,000 ML INFUS.BAG IV SCH (09:22)
[2017-09-07] MEDS: HEPARIN NA (PORCINE) 5,000 UNITS/ML 1ML VIAL SQ SCH ×2 (09:25→21:30)
[2017-09-07 09:46] LABS: INR 1.01 (0.82-1.09); PROTHROMBIN TIME (PATIENT) 11.3 SEC (10.2-13.0)
[2017-09-07 10:51] LABS: ALBUMIN 3.5 g/dl (3.5-5.0); ALK PHOS 82 U/L (32-92); BILIRUBIN,TOTAL 0.4 mg/dl (0.2-1.0); SGOT/AST 20 U/L (10-42); SGPT/ALT 22 U/L (10-40)
[2017-09-07 10:52] LABS: BILIRUBIN,DIRECT < 0.2 mg/dL (0.0-0.3)
--- NOTE | 2017-09-07 12:28 | CON.GI ---
Consult Consult Specialty:: GI Reason for Consultation:: cholelithisis, abdominal pain. - History of Present Illness History of Present Illness: Chart reviewed, Consults noted. A 56 yof with history of recently diagnosed ?IBS, chronic LLQ abdominal pain, diverticulosis admitted with RUQ abdominal pain aggravated by fatty food. Noted to have cholelithiasis w/o signs of inflammation on US. Reports mild nausea and sharp pain unrelated to inspiration, movements. NO clear-cut alleviating factors. NO fever, chills, jaundice, vomiting, diarrhea, melena. Mildy elevated ALP, normal liver chemistry and bilirubin - History Source History Provided By: Patient Limitations to Obtaining History: No Limitations - Past Medical History Gastrointestinal: Yes: Diverticulitis ...: No - Alcohol/Substance Use Hx Alcohol Use: No - Smoking History Smoking history: Never smoked Have you smoked in the past 12 months: No Aproximately how many cigarettes per day: 0 Home Medications - Allergies Allergies/Adverse Reactions: Allergies Allergy/AdvReac Type Severity Reaction Status Date / Time shellfish derived Allergy Difficulty Verified 09/06/17 19:08 Breathing aspirin AdvReac Nausea Verified 09/06/17 19:08 - Home Medications Home Medications: Ambulatory Orders Lisinopril [Prinivil -] 40 mg PO DAILY #0 tablet 07/29/13 Amlodipine Besylate [Norvasc -] 5 mg PO DAILY 11/15/13 Lipase/Protease/Amylase [Ghislaine Calvillo 3,000 Units Capsule] 1 each PO ASDIR 09/06/17 Family Disease History - Family Disease History Family History: Unremarkable Review of Systems Findings/Remarks: stuart refer to H&P Physical Exam-GI Vital Signs: Vital Signs Temperature 98.0 F 09/07/17 05:43 Pulse Rate 81 09/07/17 05:43 Respiratory Rate 20 09/07/17 05:43 Blood Pressure 103/57 09/07/17 05:43 O2 Sat by Pulse Oximetry (%) 100 09/07/17 05:43 Constitutional: Yes: Well Nourished, No Distress, Calm Eyes: Yes: Conjunctiva Clear HENT: Yes: Atraumatic Neck: Yes: Supple Cardiovascular: Yes: Regular Rate and Rhythm Respiratory: Yes: Regular ...Auscultate: Yes: Normoactive Bowel Sounds ...Palpate: Yes: Soft, Other (pos. arredondo's). No: Firm/Rigid, Guarding ...Percussion: Yes: Other (generalized discomfort) Neurological: Yes: Alert, Oriented Labs: CBC, BMP 09/07/17 06:58 09/07/17 06:58 INR, PTT INR 1.01 (0.82-1.09) 09/07/17 06:58 CBCD WBC 5.8 K/mm3 (4.0-10.8) 09/07/17 06:58 RBC 4.17 M/mm3 (3.60-5.2) 09/07/17 06:58 Hgb 12.0 GM/dl (10.7-15.3) 09/07/17 06:58 Hct 34.5 % (32.4-45.2) 09/07/17 06:58 MCV 82.7 fl (80-96) 09/07/17 06:58 MCHC 34.9 g/dl (32.0-36.0) 09/07/17 06:58 RDW 13.0 % (11.6-15.6) 09/07/17 06:58 Plt Count 297 K/MM3 (134-434) 09/07/17 06:58 MPV 8.6 fl (7.5-11.1) 09/07/17 06:58 CMP Sodium 143 mmol/L (136-145) 09/07/17 06:58 Potassium 3.5 mmol/L (3.5-5.1) D 09/07/17 06:58 Chloride 111 mmol/L (98-107) H 09/07/17 06:58 Carbon Dioxide 25 mmol/L (22-28) 09/07/17 06:58 Anion Gap 7 (8-16) L 09/07/17 06:58 BUN 6 mg/dl (7-18) L D 09/07/17 06:58 Creatinine 0.7 mg/dl (0.6-1.3) D 09/07/17 06:58 Creat Clearance w eGFR 56.95 (>60) 09/06/17 19:30 Calcium 8.7 mg/dl (8.4-10.2) 09/07/17 06:58 Total Bilirubin 0.4 mg/dl (0.2-1.0) D 09/07/17 07:15 AST 20 U/L (10-42) D 09/07/17 07:15 ALT 22 U/L (10-40) 09/07/17 07:15 Alkaline Phosphatase 82 U/L (32-92) D 09/07/17 07:15 Total Protein 6.0 g/dl (6.4-8.3) L 09/07/17 07:15 Albumin 3.5 g/dl (3.5-5.0) D 09/07/17 07:15 Imaging - Results Ultrasound: Report Reviewed Problem List - Problems (1) Cholelithiasis Code(s): K80.20 - CALCULUS OF GALLBLADDER W/O CHOLECYSTITIS W/O OBSTRUCTION (2) Diverticulosis Code(s): K57.90 - DVRTCLOS OF INTEST, PART UNSP, W/O PERF OR ABSCESS W/O BLEED Assessment/Plan Doubt inflammatory or infectious pathology of the abdominal pain at this time. Agree with HIDA scan to r/o acute biliary process. Recommend EGD if HIDA negative. Clear liquid diet today. Follow HIDA results.
--- NOTE | 2017-09-07 12:33 | PN ---
Progress Note (short form) - Note Progress Note: surgery pt seen and examined. full consult dictated. 56f with multiple medical problems and pain syndromes (IBS, endometriosis, neuralgia, back pain), presents with epigastric pain and noted to have normal labs and u/s with gallstones. On exam the abd is soft, nd, no gaurding , with generalized mild tenderness. Plan- clinically doubt acute cholecystitis. HIDA ordered to r/o. should consider elective cholecystectomy once acute issues resolve. If HIDA positive will move in direction of surgery.
--- NOTE | 2017-09-07 13:23 | CONS ---
DATE OF CONSULTATION: 09/07/2017 REASON FOR CONSULTATION: Acute cholecystitis, cholelithiasis. This is an emergency room consultation as requested by the emergency room physician. The patient was subsequently admitted to the hospital floor. BRIEF HISTORY: This is a 56-year-old female with multiple longstanding history of chronic pain syndrome. She is currently being treated for irritable bowel syndrome on a special diet and taking pancreatic enzymes. She has also been diagnosed with trigeminal neuralgia as well as endometriosis and chronic back pain. She presents to [facility] complaining of 2 days of right lower quadrant abdominal pain mostly burning and radiating to her back. The pain also moved to her epigastrium as well as her right upper quadrant. While in the emergency room, she was noted to have normal labs and had an ultrasound done, which showed gallstones but no signs and stigmata of acute cholecystitis. She was admitted to the hospital for surgical evaluation. Overnight she feels better but still complains of burning pain on her right side. She denies a squeezing pain. She states occasionally it feels like being stabbed. She admitted to nausea and vomiting yesterday. REVIEW OF SYSTEMS: General: Denies fatigue or malaise. Cardiac: Denies chest pain or palpitations. Respiratory: Denies shortness of breath or wheeze. Gastrointestinal: As stated in HPI. Genitourinary: Denies dysuria. Musculoskeletal: Denies joint pain or joint swelling. Psychiatric: Denies anxiety, depression, or hearing voices. PHYSICAL EXAMINATION: General: This is a well-developed, well-nourished 56-year-old female in no distress. Vital Signs: She is afebrile. Her vital signs are stable. HEENT: Her head is normocephalic. Sclerae anicteric. Neck: Supple. Chest: Clear. Abdomen: Soft. It is nondistended. She has a Pfannenstiel incision from her previous hysterectomy. She has generalized mild tenderness without guarding and without rebound. Extremities: No edema. LABORATORY: On review of her laboratory, her potassium was low at 2.8. It is now 3.5. Her white blood cell count is normal. Her liver function tests have been unremarkable with the exception of an initial mildly elevated alkaline phosphatase of 104. A urinalysis is 2+ for blood with 5-10 red blood cells noted. Her imaging is as stated in HPI. ASSESSMENT: A 56-year-old female with chronic abdominal pain currently being treated who presents with more right-sided burning pain. Her ultrasound does confirm gallstones but no other signs of inflammation. Her labs are normal as well as her liver function tests. Her abdominal exam is not impressive for acute cholecystitis. At this point, I have low suspicion for acute cholecystitis. I will get a HIDA scan to rule that out. If it is positive, I would move in the direction of surgery. If the HIDA scan is negative, which I suspect, I then would recommend elective cholecystectomy once her acute issues have resolved. The HIDA scan would be more diagnostic if it was carried out for a full 4 years instead of only 2 hours. DO CLIFF CASTILLO/[id number]
[2017-09-07] MEDS ORDERED: PATIENT'S OWN MEDICATION (NON-FORMULARY) (Lipase/Protease/Amylase [Creon Dr 3,000 Units Ca PO SCH (13:30)
[2017-09-07 14:24] LABS: CHOLESTEROL 231 mg/dl
--- NOTE | 2017-09-07 15:54 | EKG ---
Test Reason : Blood Pressure : / mmHG Vent. Rate : 096 BPM Atrial Rate : 096 BPM P-R Int : 170 ms QRS Dur : 070 ms QT Int : 326 ms P-R-T Axes : 054 029 008 degrees QTc Int : 411 ms NORMAL SINUS RHYTHM BASELINE ARTIFACT NORMAL ECG WHEN COMPARED WITH ECG OF 11-NOV-2006 20:40, NONSPECIFIC T WAVE ABNORMALITY, WORSE IN INFERIOR LEADS REPEAT EKG IF CLINICALLY INDICATED Confirmed by AUGUSTINE BREWER MD ([id number]) on 09/07/2017 3:53:52 PM Referred By: TAMI Confirmed By:AUGUSTINE BREWER MD
[2017-09-08] MEDS: D5-1/2NS+20 MEQ KCL - 20 MEQ/1,000 ML INFUS.BAG IV SCH (08:02)
--- NOTE | 2017-09-08 08:42 | PN ---
Physical Exam: SUBJECTIVE: Patient seen and examined, reports feeling better,reports an improvement of abdominal pain. OBJECTIVE: patient is a 56 y/o woman with a past medical history of IBS, Trigemenial Neuralgia. patient was admitted from the emergency department for emergent condition. Vital Signs Period Temp Pulse Resp BP Sys/Ramachandran Pulse Ox Last 24 Hr 97.8 F-98.3 F 76-86 16-18 110-123/70-83 99-100 GENERAL: The patient is awake, alert, and fully oriented, in no acute distress. HEAD: Normal with no signs of trauma. EYES: PERRL, extraocular movements intact, sclera anicteric, conjunctiva clear. No ptosis. ENT: Ears normal, nares patent, oropharynx clear without exudates, moist mucous membranes. NECK: Trachea midline, full range of motion, supple. LUNGS: Breath sounds equal, clear to auscultation bilaterally, no wheezes, no crackles, no accessory muscle use. HEART: Regular rate and rhythm, S1, S2 without murmur, rub or gallop. ABDOMEN: Soft, nontender, nondistended, normoactive bowel sounds, no guarding, no rebound, no hepatosplenomegaly, no masses. EXTREMITIES: 2+ pulses, warm, well-perfused, no edema. NEUROLOGICAL: Cranial nerves II through XII grossly intact. Normal speech, gait not observed. PSYCH: Normal mood, normal affect. SKIN: Warm, dry, normal turgor, no rashes or lesions noted Laboratory Results - last 24 hr 09/07/17 09/07/17 09/07/17 06:58 06:58 06:58 PT with INR 11.3 INR 1.01 Total Bilirubin Direct Bilirubin AST ALT Alkaline Phosphatase Total Protein Albumin Triglycerides Cholesterol Total LDL Cholesterol HDL Cholesterol Anti-A Titer Cancelled Blood Type Cancelled B POSITIVE Antibody Screen Cancelled Spec Expiration Date Cancelled 09/07/17 09/07/17 09/07/17 07:15 07:15 10:46 PT with INR INR Total Bilirubin 0.4 D Direct Bilirubin < 0.2 AST 20 D ALT 22 Alkaline Phosphatase 82 D Total Protein 6.0 L Albumin 3.5 D Triglycerides 60 Cholesterol 231 Total LDL Cholesterol 165 HDL Cholesterol 54 Anti-A Titer Blood Type B POSITIVE Antibody Screen Negative Spec Expiration Date CMP Sodium 137 mmol/L (136-145) 09/08/17 07:00 Potassium 3.8 mmol/L (3.5-5.1) 09/08/17 07:00 Chloride 107 mmol/L (98-107) 09/08/17 07:00 Carbon Dioxide 25 mmol/L (22-28) 09/08/17 07:00 Anion Gap 5 (8-16) L 09/08/17 07:00 BUN < 4 mg/dl (7-18) L D 09/08/17 07:00 Creatinine 0.7 mg/dl (0.6-1.3) 09/08/17 07:00 Creat Clearance w eGFR > 60 (>60) 09/08/17 07:00 Random Glucose 87 mg/dl (74-106) 09/08/17 07:00 Calcium 8.6 mg/dl (8.4-10.2) 09/08/17 07:00 Phosphorus 3.1 mg/dl (2.5-4.6) 09/08/17 07:00 Magnesium 1.9 mg/dL (1.8-2.4) D 09/08/17 07:00 Total Bilirubin 0.5 mg/dl (0.2-1.0) D 09/08/17 07:00 Direct Bilirubin < 0.2 mg/dL (0.0-0.3) 09/07/17 07:15 AST 19 U/L (10-42) 09/08/17 07:00 ALT 17 U/L (10-40) D 09/08/17 07:00 Alkaline Phosphatase 81 U/L (32-92) 09/08/17 07:00 Creatine Kinase 103 IU/L (26-192) 09/06/17 19:30 Troponin I < 0.03 ng/ml (0.03-0.50) L 09/06/17 19:30 Total Protein 6.1 g/dl (6.4-8.3) L 09/08/17 07:00 Albumin 3.5 g/dl (3.5-5.0) 09/08/17 07:00 Triglycerides 60 mg/dl (35-160) 09/07/17 07:15 Cholesterol 231 mg/dl 09/07/17 07:15 Total LDL Cholesterol 165 mg/dl 09/07/17 07:15 HDL Cholesterol 54 mg/dl (29-89) 09/07/17 07:15 Total Amylase 59 U/L (25-115) 09/07/17 01:55 Lipase 44 U/L (22-51) 09/06/17 19:30 Active Medications Generic Name Dose Route Start Last Admin Trade Name Freq PRN Reason Stop Dose Admin Heparin Sodium (Porcine) 5,000 unit 09/07/17 10:00 09/07/17 21:30 Heparin - SQ 5,000 unit BID DANNIELLE Administration Potassium Chloride/Dextrose/Sod Cl 20 meq in 1,000 mls @ 75 mls/hr 09/07/17 08 :00 09/07/17 09:22 D5-1/2ns+20 Meq Kcl - IV 75 mls/hr ASDIR DANNIELLE Administration Morphine Sulfate 2 mg 09/06/17 23:50 09/07/17 23:52 Morphine Injection - IVPUSH 2 mg Q6H PRN Administration PAIN Non-Formulary Medication 1 each 09/07/17 13:30 Lipase/Protease/Amylase [Ghislaine Calvillo 3,000 Units Capsule] PO ASDIR DANNIELLE Ondansetron HCl 4 mg 09/07/17 01:39 Zofran Injection IVPUSH Q6H PRN NAUSEA AND/OR VOMITING IMAGING right upper quadrant ultraound- multiple gallstones and cholesterol granulomas with a questionable sludge, without sonographic evidence of acute cholecystitis. Senior Program Manager reported positive Carson's sign. Slightly coarse echotexture of the liver. Rule out mild fatty infiltration. Small right and left renal angiomyolipoma ASSESSMENT/PLAN: 1. GI Cholelithiasis - No leukocytosis, no lactic acidemia, pt is afebrile, patient is pending hida scan results - Surgery, Dr Williamson consulted and following abdominal pain - likely secondary to IBS - morphine Sulfate prn - GI consulted and following, Dr Sawyer 2) card hypertension - hold norvasc and lisinopril for labile b/p F/E/N - D51/2NS w/20meg kci @75ml/hr hypokalemia - potassium 3.8 wnl, strict monitoring - trial clear liquid diet DVT Prophylaxis - OOB - SCDs - Heparin SQ Code Status: Full Code Dispo: Requires Inpatient Care Visit type - Emergency Visit Emergency Visit: Yes ED Registration Date: 09/07/17 Care time: The patient presented to the Emergency Department on the above date and was hospitalized for further evaluation of their emergent condition. - New Patient This patient is new to me today: No - Critical Care Critical Care patient: No - Discharge Referral Referred to [facility] Med P.C.: No
[2017-09-08 08:45] LABS: BASOPHIL 1.1 % (0-2.0); EOSINOPHIL 1.8 % (0-4.5); MCH 28.9 pg (25.7-33.7); MCHC 34.8 g/dl (32.0-36.0); MEAN CELL VOLUME 83.1 fl (80-96); MEAN PLT VOLUME 8.4 fl (7.5-11.1); NEUTROPHILS 36.2 % (42.8-82.8); PLATELET COUNT 299 K/MM3 (134-434); RDW 12.6 % (11.6-15.6); WHITE BLOOD COUNT 5.1 K/mm3 (4.0-10.8)
[2017-09-08 09:09] LABS: ALBUMIN 3.5 g/dl (3.5-5.0); ALK PHOS 81 U/L (32-92); ANION GAP 5 (8-16); BILIRUBIN,TOTAL 0.5 mg/dl (0.2-1.0); CALCIUM 8.6 mg/dl (8.4-10.2); CO2 25 mmol/L (22-28); CREATININE 0.7 mg/dl (0.6-1.3); GLUCOSE,RANDOM 87 mg/dl (74-106); MAGNESIUM 1.9 mg/dL (1.8-2.4); PHOSPHOROUS 3.1 mg/dl (2.5-4.6); SGOT/AST 19 U/L (10-42); SGPT/ALT 17 U/L (10-40); TOT PROT 6.1 g/dl (6.4-8.3)
[2017-09-08] MEDS: HEPARIN NA (PORCINE) 5,000 UNITS/ML 1ML VIAL SQ SCH ×2 (13:00→22:29)
--- NOTE | 2017-09-08 13:54 | PN ---
Progress Note (short form) - Note Progress Note: surgery HIDA scan appears to be negative with filling at 90 minutes. If official read confirms this would r/o acute cholecystitis as the source of her continued pain. Can consider elective cholecystectomy when well from her acute problem
[2017-09-08] MEDS: morphine CARPU-JECT 2 MG/1 ML DISP.SYRIN IVPUSH PRN ×2 (14:37→23:04)
[2017-09-09] MEDS: D5-1/2NS+20 MEQ KCL - 20 MEQ/1,000 ML INFUS.BAG IV SCH (08:50)
[2017-09-09] MEDS: HEPARIN NA (PORCINE) 5,000 UNITS/ML 1ML VIAL SQ SCH ×2 (10:10→21:27)
[2017-09-09] MEDS: LACTOBACILLUS ACIDOPHILUS 1 EACH TAB (FP) PO SCH (10:10)
[2017-09-09] MEDS ORDERED: DICYCLOMINE HCL 20 MG TABLET PO PRN (11:31)
--- NOTE | 2017-09-09 11:36 | PN ---
Physical Exam: SUBJECTIVE: Patient seen and examined, reports intermittent cramping, patient is tolerating clear liquid diet. OBJECTIVE: patient is a 56 y/o woman with a past medical history of IBS, Trigemenial Neuralgia. patient was admitted from the emergency department for emergent condition. Vital Signs Period Temp Pulse Resp BP Sys/Ramachandran Pulse Ox Last 24 Hr 97.9 F-99.3 F 81-84 16-18 110-118/69-73 100-100 GENERAL: The patient is awake, alert, and fully oriented, in no acute distress. HEAD: Normal with no signs of trauma. EYES: PERRL, extraocular movements intact, sclera anicteric, conjunctiva clear. No ptosis. ENT: Ears normal, nares patent, oropharynx clear without exudates, moist mucous membranes. NECK: Trachea midline, full range of motion, supple. LUNGS: Breath sounds equal, clear to auscultation bilaterally, no wheezes, no crackles, no accessory muscle use. HEART: Regular rate and rhythm, S1, S2 without murmur, rub or gallop. ABDOMEN: Soft, diffuse abdominal tenderness, nondistended, normoactive bowel sounds, no guarding, no rebound, no hepatosplenomegaly, no masses. EXTREMITIES: 2+ pulses, warm, well-perfused, no edema. NEUROLOGICAL: Cranial nerves II through XII grossly intact. Normal speech, gait not observed. PSYCH: Normal mood, normal affect. SKIN: Warm, dry, normal turgor, no rashes or lesions noted Active Medications Generic Name Dose Route Start Last Admin Trade Name Freq PRN Reason Stop Dose Admin Heparin Sodium (Porcine) 5,000 unit 09/07/17 10:00 09/09/17 10:10 Heparin - SQ 5,000 unit BID DANNIELLE Administration Potassium Chloride/Dextrose/Sod Cl 20 meq in 1,000 mls @ 75 mls/hr 09/07/17 08 :00 09/09/17 08:50 D5-1/2ns+20 Meq Kcl - IV 75 mls/hr ASDIR DANNIELLE Administration Lactobacillus Acidophilus 1 tab 09/09/17 10:00 09/09/17 10:10 Bacid - PO 1 tab DAILY DANNIELLE Administration Morphine Sulfate 2 mg 09/06/17 23:50 09/08/17 23:04 Morphine Injection - IVPUSH 2 mg Q6H PRN Administration PAIN Non-Formulary Medication 1 each 09/07/17 13:30 Lipase/Protease/Amylase [Ghislaine Calvillo 3,000 Units Capsule] PO ASDIR DANNIELLE Ondansetron HCl 4 mg 09/07/17 01:39 Zofran Injection IVPUSH Q6H PRN NAUSEA AND/OR VOMITING IMAGING right upper quadrant ultraound- multiple gallstones and cholesterol granulomas with a questionable sludge, without sonographic evidence of acute cholecystitis. Television Audio Engineer reported positive Carson's sign. Slightly coarse echotexture of the liver. Rule out mild fatty infiltration. Small right and left renal angiomyolipoma ASSESSMENT/PLAN: 1. GI Cholelithiasis - No leukocytosis, no lactic acidemia, pt is afebrile, hida scan excludes cystic duct obstruction and acute choleystitis - Surgery, Dr Williamson consulted and following abdominal pain - likely secondary to IBS , start bentyl prn - morphine Sulfate prn - GI consulted and following, Dr Sawyer 2) card hypertension - hold norvasc and lisinopril for labile b/p F/E/N - D51/2NS w/20meg kci @75ml/hr hypokalemia - potassium 3.8 wnl, strict monitoring - trial clear liquid diet DVT Prophylaxis - OOB - SCDs - Heparin SQ Code Status: Full Code Dispo: Requires Inpatient Care Visit type - Emergency Visit Emergency Visit: Yes ED Registration Date: 09/09/17 Care time: The patient presented to the Emergency Department on the above date and was hospitalized for further evaluation of their emergent condition. - New Patient This patient is new to me today: No - Critical Care Critical Care patient: No - Discharge Referral Referred to [facility] Med P.C.: No
[2017-09-09] MEDS: DICYCLOMINE HCL 10 MG CAPSULE PO PRN (12:04)
[2017-09-09] MEDS: morphine CARPU-JECT 2 MG/1 ML DISP.SYRIN IVPUSH PRN ×2 (13:23→20:58)
[2017-09-10 05:20] VITALS: BP 115/76; PULSE 78; TEMP 97.5
[2017-09-10] MEDS: HEPARIN NA (PORCINE) 5,000 UNITS/ML 1ML VIAL SQ SCH (09:53)
[2017-09-10] MEDS: LACTOBACILLUS ACIDOPHILUS 1 EACH TAB (FP) PO SCH (09:54)
[2017-09-10] MEDS: D5-1/2NS+20 MEQ KCL - 20 MEQ/1,000 ML INFUS.BAG IV SCH (09:54)
[2017-09-10] MEDS: DICYCLOMINE HCL 10 MG CAPSULE PO PRN (09:57)
--- NOTE | 2017-09-10 12:45 | DS ---
Physical Exam: SUBJECTIVE: Patient seen and examined, reports feeling better, tolerating diet. OBJECTIVE: This is a 56 y/o woman with a past medical history of IBS, Trigemenial Neuralgia. Who presents to the ED with sharp, burning and cramping of the right lower abdomen x 2 days. Patient reports the pain started after eating food. Patient reports having nausea and vomiting, loose stools, with generalized weakness. Patient reports having pain to her right lower back/flank x 1 day, denies hematuria. Patient denies fever, chills, cough, SOB, CP, constipation, dysuria. ER course was notable for: (1) CTAP- cholelithiasis, no acute cholecystitis Vital Signs Period Temp Pulse Resp BP Sys/Ramachandran Pulse Ox Last 24 Hr 97.5 F-98.2 F 78-89 18-18 115-129/76-82 97-100 PHYSICAL EXAM GENERAL: The patient is awake, alert, and fully oriented, in no acute distress. HEAD: Normal with no signs of trauma. EYES: PERRL, extraocular movements intact, sclera anicteric, conjunctiva clear. ENT: Ears normal, nares patent, oropharynx clear without exudates, moist mucous membranes. NECK: Trachea midline, full range of motion, supple. LUNGS: Breath sounds equal, clear to auscultation bilaterally, no wheezes, no crackles, no accessory muscle use. HEART: Regular rate and rhythm, S1, S2 without murmur, rub or gallop. ABDOMEN: Soft, nontender, nondistended, normoactive bowel sounds, no guarding, no rebound, no hepatosplenomegaly, no masses. EXTREMITIES: 2+ pulses, warm, well-perfused, no edema. NEUROLOGICAL: Cranial nerves II through XII grossly intact. Normal speech, gait not observed. PSYCH: Normal mood, normal affect. SKIN: Warm, dry, normal turgor, no rashes or lesions noted. LABS CBC WBC 5.1 K/mm3 (4.0-10.8) 09/08/17 07:00 RBC 4.06 M/mm3 (3.60-5.2) 09/08/17 07:00 Hgb 11.7 GM/dl (10.7-15.3) 09/08/17 07:00 Hct 33.7 % (32.4-45.2) 09/08/17 07:00 MCV 83.1 fl (80-96) 09/08/17 07:00 MCH 28.9 pg (25.7-33.7) 09/08/17 07:00 MCHC 34.8 g/dl (32.0-36.0) 09/08/17 07:00 RDW 12.6 % (11.6-15.6) 09/08/17 07:00 Plt Count 299 K/MM3 (134-434) 09/08/17 07:00 MPV 8.4 fl (7.5-11.1) 09/08/17 07:00 Neutrophils % 36.2 % (42.8-82.8) L D 09/08/17 07:00 Lymphocytes % 54.0 % (8-40) H D 09/08/17 07:00 Monocytes % 6.9 % (3.8-10.2) 09/08/17 07:00 Eosinophils % 1.8 % (0-4.5) 09/08/17 07:00 Basophils % 1.1 % (0-2.0) 09/08/17 07:00 CMP Sodium 137 mmol/L (136-145) 09/08/17 07:00 Potassium 3.8 mmol/L (3.5-5.1) 09/08/17 07:00 Chloride 107 mmol/L (98-107) 09/08/17 07:00 Carbon Dioxide 25 mmol/L (22-28) 09/08/17 07:00 Anion Gap 5 (8-16) L 09/08/17 07:00 BUN < 4 mg/dl (7-18) L D 09/08/17 07:00 Creatinine 0.7 mg/dl (0.6-1.3) 09/08/17 07:00 Creat Clearance w eGFR > 60 (>60) 09/08/17 07:00 Random Glucose 87 mg/dl (74-106) 09/08/17 07:00 Calcium 8.6 mg/dl (8.4-10.2) 09/08/17 07:00 Phosphorus 3.1 mg/dl (2.5-4.6) 09/08/17 07:00 Magnesium 1.9 mg/dL (1.8-2.4) D 09/08/17 07:00 Total Bilirubin 0.5 mg/dl (0.2-1.0) D 09/08/17 07:00 Direct Bilirubin < 0.2 mg/dL (0.0-0.3) 09/07/17 07:15 AST 19 U/L (10-42) 09/08/17 07:00 ALT 17 U/L (10-40) D 09/08/17 07:00 Alkaline Phosphatase 81 U/L (32-92) 09/08/17 07:00 Creatine Kinase 103 IU/L (26-192) 09/06/17 19:30 Troponin I < 0.03 ng/ml (0.03-0.50) L 09/06/17 19:30 Total Protein 6.1 g/dl (6.4-8.3) L 09/08/17 07:00 Albumin 3.5 g/dl (3.5-5.0) 09/08/17 07:00 Triglycerides 60 mg/dl (35-160) 09/07/17 07:15 Cholesterol 231 mg/dl 09/07/17 07:15 Total LDL Cholesterol 165 mg/dl 09/07/17 07:15 HDL Cholesterol 54 mg/dl (29-89) 09/07/17 07:15 Total Amylase 59 U/L (25-115) 09/07/17 01:55 Lipase 44 U/L (22-51) 09/06/17 19:30 IMAGING right upper quadrant ultraound- multiple gallstones and cholesterol granulomas with a questionable sludge, without sonographic evidence of acute cholecystitis. Laundry Agent reported positive Carson's sign. Slightly coarse echotexture of the liver. Rule out mild fatty infiltration. Small right and left renal angiomyolipoma HOSPITAL COURSE: Patient was admitted from the emergency department for abdominal pain. Patient does have a significant past medical history of cholelithiasis. Patient has no leukocytosis, no lactic acidemia, pt is afebrile, hida scan excludes cystic duct obstruction and acute choleystitis. Surgery, Dr Williamson consulted and following. Patient's abdominal pain secondary to IBS. Patient was started on bentyl prn with relief. GI consulted and followed patient throughout admission, Dr Sawyer. Patient has a past medical history of hypertension, norvasc and lisinopril held for labile b/p. PLAN - discharge with soft bland diet then advance as tolerated - bentyl prn for abdominal crampin - strict follow up with GI within 2 weeks - strict follow up with surgery, Dr Williamson within 3 weeks Date of Admission:09/09/17 Date of Discharge: 09/10/17 Minutes to complete discharge: 45 Discharge Summary Reason For Visit: ABD PAIN Current Active Problems Cholecystitis (Acute) Cholelithiasis (Acute) DVT prophylaxis (Acute) Hypokalemia (Acute) IBS (irritable bowel syndrome) (Acute) Trigeminal neuralgia (Acute) Condition: Improved - Instructions Diet, Activity, Other Instructions: continue all medications as prescribed continue taking acidophilus daily continue bentyl as needed for abdominal cramping continue bland diet then advance as tolerated please follow up with GI within 2 weeks please follow up with surgeon, Dr Williamson within 3 weeks if any new or persistent symptoms develop please return to the emergency department Referrals: Miguel A Sawyer MD [Staff Physician] - 2 Weeks Lance Garg MD [Primary Care Provider] - Navneet Williamson MD [Staff Physician] - 3 Weeks Disposition: HOME - Home Medications Comprehensive Discharge Medication List: Ambulatory Orders RX: Lisinopril [Prinivil -] 40 mg PO DAILY #0 tablet 07/29/13 RX: Amlodipine Besylate [Norvasc -] 5 mg PO DAILY 11/15/13 Lipase/Protease/Amylase [Ghislaine Calvillo 3,000 Units Capsule] 1 each PO ASDIR 09/06/17 This patient is new to me today: Yes Date on this admission: 09/13/17 Emergency Visit: No Critical Care patient: No - Discharge Referral Referred to [facility].C.: No
== END 2017-09-10 16:20 | disposition home or self-care (01) | DRG 446 ==
LOC: FER 19:05 → FM/S 23:39 → UNDOADMOB 23:39 → INTOOBSV 23:39 → FM/S 09-07 01:36 → OBSVTOIN 09-09 14:47
PROVIDERS: ADMIT Internal Medicine; ATTEND Nurse Practitioner Family
DX: K80.20 Calculus of gallbladder without cholecystitis without obstruction (principal); K57.90 Diverticulosis of intestine, part unspecified, without perforation or abscess without bleeding; K58.9 Irritable bowel syndrome, unspecified; E87.6 Hypokalemia; G50.0 Trigeminal neuralgia; M54.9 Dorsalgia, unspecified; G89.4 Chronic pain syndrome; I10 Essential (primary) hypertension; D17.71 Benign lipomatous neoplasm of kidney
CPT/HCPCS: 36415; 71010-TC; 76700-TC; 78226-TC; 80048; 80053; 80061; 80076; 81003; 81015; 82150; 82550; 83690; 83735; 84100; 84484; 85025; 85610; 86850; 86900; 86901; 93005; 99284-25; A9537; G0378; J1644

== ENCOUNTER 2017-11-10 18:35 | Emergency (ER) | payer OTHER ==
[2017-11-10 19:01] VITALS: BP 138/92; PULSE 88; TEMP 97.8; BMI 27.3
--- NOTE | 2017-11-10 19:19 | PDOC ---
History of Present Illness - General History Source: Patient Exam Limitations: No Limitations - History of Present Illness Initial Comments: 11/10/17 19:33 The patient is a 57 year old female, with a significant past medical history of IBS, diverticulosis, cholecystitis, and trigeminal neuralgia, who presents to the emergency department with, right lower quadrant abdominal pain beginning approx. 3 hours ago. The patient reports she visited her GI Dr. Sawyer for a check up prior to arrival and as she was standing in the lobby after leaving the GI she suddenly began to experience the right lower quadrant abdominal pain. The patient reports the right lower quadrant abdominal pain as intermittent and describes the abdominal pain a sharp stabbing pain with a hot burning sensation. The patient reports associated symptoms of nausea without vomiting. The patient reports her last bowel movement was last night and reports diarrhea described as non bloody, non bilious. The patient reports her last meal was at approx. 1 pm this afternoon. The patient denies sick contacts. She denies recent fevers, chills, headache or dizziness. She denies recent, constipation. She denies recent dysuria, frequency, urgency or hematuria. She denies recent chest pain or shortness of breath. Allergies: shellfish derived, aspirin Past surgical history: hysterectomy Primary Care Physician: Dr. Lance Garg Gastro: Dr. Sawyer <Gigi Poole - Last Filed: 11/10/17 20:05> <Becki Esteves - Last Filed: 11/10/17 23:00> - General Chief Complaint: Pain Stated Complaint: SHARP PAIN TO RIGHT LOWER ABDOMEN Time Seen by Provider: 11/10/17 19:18 Past History <Gigi Poole - Last Filed: 11/10/17 20:05> - Past Medical History Anemia: Yes Asthma: Yes Cancer: No Cardiac Disorders: Yes (HEART MURMUR) CVA: No COPD: No CHF: No Dementia: No Diabetes: No GI Disorders: Yes (,ibs) Disorders: No HTN: Yes Hypercholesterolemia: No Liver Disease: No Seizures: No Thyroid Disease: No - Surgical History Abdominal Surgery: No Appendectomy: No Cardiac Surgery: No Cholecystectomy: No Lung Surgery: No Neurologic Surgery: No Orthopedic Surgery: Yes (FOOT SURGERY AT 10 YEARS OLD,TONSILLECTOMY) - Immunization History Immunization Up to Date: Yes - Suicide/Smoking/Psychosocial Hx Smoking Status: No Smoking History: Never smoked Have you smoked in the past 12 months: No Number of Cigarettes Smoked Daily: 0 Information on smoking cessation initiated: No Hx Alcohol Use: No Drug/Substance Use Hx: No Substance Use Type: None Hx Substance Use Treatment: No <Becki Esteves - Last Filed: 11/10/17 23:00> - Past Medical History Allergies/Adverse Reactions: Allergies Allergy/AdvReac Type Severity Reaction Status Date / Time shellfish derived Allergy Difficulty Verified 11/10/17 18:37 Breathing aspirin AdvReac Nausea Verified 11/10/17 18:37 Home Medications: Ambulatory Orders Lisinopril [Prinivil -] 40 mg PO DAILY #0 tablet 07/29/13 Amlodipine Besylate [Norvasc -] 10 mg PO DAILY 11/15/13 Dicyclomine HCl [Bentyl -] 20 mg PO Q6H PRN #30 capsule 09/10/17 Lactobacillus Acidophilus [Bacid -] 1 tab PO DAILY #30 tab 09/10/17 Amitriptyline HCl 75 mg PO HS 11/10/17 Ibuprofen/Famotidine [Duexis 800-26.6 mg Tablet] 1 tab PO BID 11/10/17 Lipase/Protease/Amylase [Creon Dr 36,000 Units Capsule] 1 cap PO TID 11/10/17 Metaxalone [Skelaxin] 800 mg PO HS 11/10/17 Polyethylene Glycol 3350 [Miralax (For Daily Use) -] 17 gm PO DAILY 11/10/17 Review of Systems - Review of Systems Comments:: 11/10/17 19:34 CONSTITUTIONAL: Absent: fever, no chills, no fatigue EYES: Absent: visual changes ENT: Absent: ear pain, no sore throat CARDIOVASCULAR: Absent: chest pain, no palpitations RESPIRATORY: Absent: cough, no SOB GI: Present: +Right lower quadrant abdominal pain. +Nausea. +Diarrhea. Absent: no vomiting, no constipation, GENITOURINARY: Absent: dysuria, no frequency, no hematuria MUSKULOSKELETAL: Absent: back pain, no arthralgia, no myalgia SKIN: Absent: rash NEURO: Absent: headache <Gigi Poole - Last Filed: 11/10/17 20:05> *Physical Exam - Vital Signs Last Vital Signs Temp Pulse Resp BP Pulse Ox 97.8 F 88 16 138/92 100 11/10/17 18:37 11/10/17 18:37 11/10/17 18:37 11/10/17 18:37 11/10/17 18:37 - Physical Exam Comments: 11/10/17 19:34 GENERAL: The patient is awake, alert, and fully oriented. HEAD: Normal with no signs of trauma. EYES: Pupils equal, round and reactive to light, extraocular movements intact, sclera anicteric, conjunctiva clear with no pallor. ENT: Ears normal, nares patent, oropharynx clear without exudates. Moist mucous membranes. NECK: Normal range of motion, supple without lymphadenopathy, JVD, or masses. LUNGS: Breath sounds equal, clear to auscultation bilaterally. No wheeze/ crackles. HEART: Regular rate and rhythm, normal S1 and S2 without murmur or rub. ABDOMEN: +Hyperactive bowel sounds. +Generalized tenderness. +Moderate Suprapubic tenderness and right lower quadrant tenderness. Soft/nondistended. No guarding or rebound. No palpable masses. No hepatosplenomegaly. No Carson's sign. Back: +Mild right flank tenderness. EXTREMITIES: Normal range of motion, no edema. No clubbing or cyanosis. No cords, erythema, or tenderness. NEUROLOGICAL: Cranial nerves II through XII grossly intact. Normal speech, normal gait. PSYCH: Normal mood, normal affect. SKIN: Warm, Dry, normal turgor, no rashes or lesions noted. <Gigi Poole - Last Filed: 11/10/17 20:05> - Vital Signs Last Vital Signs Temp Pulse Resp BP Pulse Ox 97.8 F 88 16 138/92 100 11/10/17 18:37 11/10/17 18:37 11/10/17 18:37 11/10/17 18:37 11/10/17 18:37 <Becki Esteves - Last Filed: 11/10/17 23:00> ED Treatment Course - LABORATORY CBC & Chemistry Diagram: 11/10/17 19:38 11/10/17 19:38 <Gigi Poole - Last Filed: 11/10/17 20:05> - LABORATORY CBC & Chemistry Diagram: 11/10/17 19:38 11/10/17 19:38 <Becki Esteves - Last Filed: 11/10/17 23:00> *DC/Admit/Observation/Transfer - Attestations Scribe Attestion: 11/10/17 19:42 Documentation prepared by Gigi Poole, acting as medical laboratory scientist for Becki Esteves MD. <Gigi Poole - Last Filed: 11/10/17 20:05> <Becki Esteves - Last Filed: 11/10/17 23:00> Diagnosis at time of Disposition: Cholelithiasis Qualifiers: Cholelithiasis location: gallbladder Cholecystitis presence: without cholecystitis Biliary obstruction: without biliary obstruction Qualified Code(s) : K80.20 - Calculus of gallbladder without cholecystitis without obstruction - Discharge Dispostion Disposition: HOME Condition at time of disposition: Stable - Referrals Referrals: Miguel A Sawyer MD [Staff Physician] - - Patient Instructions Printed Discharge Instructions: Gallstones Additional Instructions: Continue diet as previously Continue pain medications as previously prescribed Call Dr. Sawyer's office to make follow-up appointment within the next week Return to ER if you have severe abdominal pain/vomiting/
[2017-11-10 20:04] LABS: PH,URINE 7.5 (4.5-8); URINE APPEARANCE Clear; URINE BILIRUBIN Negative (NEGATIVE); URINE BLOOD 1+ (NEGATIVE); URINE COLOR YELLOW; URINE GLUCOSE (UA) Negative (NEGATIVE); URINE KETONE Negative (NEGATIVE); URINE NITRITE Negative (NEGATIVE); URINE PROTEIN Negative (NEGATIVE); URINE UROBILINOGEN 0.2 (0.2-1.0)
[2017-11-10 20:10] LABS: BASO % 4.6 % (0-2.0); EOS % 0.5 % (0-4.5); HEMATOCRIT 39.7 % (32.4-45.2); LYMPH % 47.1 % (8-40); MCHC 32.7 g/dl (32.0-36.0); MEAN CELL VOLUME 85.6 fl (80-96); MEAN PLT VOLUME 8.6 fl (7.5-11.1); MONO % 7.9 % (3.8-10.2); NEUT % 39.9 % (42.8-82.8); PLATELET COUNT 343 K/MM3 (134-434); RBC 4.64 M/mm3 (3.60-5.2); RDW 12.7 % (11.6-15.6); WHITE BLOOD COUNT 4.8 K/mm3 (4.0-10.8)
[2017-11-10 20:18] LABS: URINE WBC 0-2 (0-5)
[2017-11-10 20:26] LABS: ALBUMIN 4.4 g/dl (3.5-5.0); ALK PHOS 105 U/L (32-92); ANION GAP 13 (8-16); BILIRUBIN,TOTAL 0.4 mg/dl (0.2-1.0); BLOOD UREA NITROGEN 8 mg/dl (7-18); CALCIUM 9.3 mg/dl (8.4-10.2); CHLORIDE 94 mmol/L (98-107); CO2 24 mmol/L (22-28); CREATININE 0.8 mg/dl (0.6-1.3); GLUCOSE,RANDOM 72 mg/dl (74-106); POTASSIUM 3.4 mmol/L (3.5-5.1); SGOT/AST 26 U/L (10-42); SGPT/ALT 16 U/L (10-40); SODIUM 131 mmol/L (136-145); TOT PROT 7.5 g/dl (6.4-8.3)
[2017-11-10] MEDS ORDERED: HYOSCYAMINE SULFATE 0.125 MG *ODT PO ONE (20:34)
[2017-11-10] MEDS ORDERED: HYOSCYAMINE SULFATE 0.125 MG *ODT ONE (20:36)
[2017-11-10] MEDS ORDERED: morphine CARPU-JECT 2 MG/1 ML DISP.SYRIN IM ONE (22:04)
[2017-11-10] MEDS ORDERED: morphine CARPU-JECT 2 MG/1 ML DISP.SYRIN ONE (22:15)
== END 2017-11-10 23:01 | disposition home or self-care (01) ==
LOC: FER 18:35
PROC: 3E023NZ Introduction of Analgesics, Hypnotics, Sedatives into Muscle, Percutaneous Approach (ICD-10-PCS; principal; 2017-11-10)
DX: K80.20 Calculus of gallbladder without cholecystitis without obstruction (principal); J45.909 Unspecified asthma, uncomplicated; I10 Essential (primary) hypertension; R01.1 Cardiac murmur, unspecified; K58.9 Irritable bowel syndrome, unspecified
CPT/HCPCS: 36415; 76705-TC; 80053; 81003; 81015; 83690; 85025; 99283-25

== ENCOUNTER 2018-07-15 22:56 | Emergency (ER) | payer OTHER ==
[2018-07-15 23:17] VITALS: TEMP 98; BMI 28.3
[2018-07-15] MEDS ORDERED: POTASSIUM CHLORIDE TABS 20 MEQ TABLET.ER (FP) PO ONE (23:58)
--- NOTE | 2018-07-16 00:19 | PDOC ---
History of Present Illness - General History Source: Patient Exam Limitations: No Limitations - History of Present Illness Initial Comments: 07/16/18 01:09 The patient is a 57-year-old female with past medical history significant for IBS, Trigeminal Neuralgia, Endometriosis, diverticulosis, and Chronic Back Pain presents to the emergency department with pain. The patient presents with a sudden onset of pain to the L. back and L. arm since this afternoon. The patient describes the pain as sharp and burning in character with the severity of 20/10. The patient reports the pain to the L. neck that radiates down to the L. scapula and L. arm, no relief noted with Ibuprofen, heat compress, or cream. The patient reports the movement of the arm aggravates the pain. The patient reports a history of a pinched nerve in the back, that flared up today. The patient reports following up with a neurologist and states she is scheduled with Dr. Montanez of neurosurgery. Denies any trauma. The patient reports a history of migraines, reports getting botox shot for the pain. Allergies: aspirin Social history: No past or present use of tobacco, alcohol or recreational drug use. Surgical history: hysterectomy, L. foot surgery and L. knee arthroscopy surgery. PCP: Lance Mary MD <Corrina Diane - Last Filed: 07/16/18 01:09> <Lorenza Duque - Last Filed: 07/16/18 19:24> - General Chief Complaint: Pain Stated Complaint: ARM PAIN TIGHTNESS Time Seen by Provider: 07/15/18 23:49 Past History <Corrina Diane - Last Filed: 07/16/18 01:09> - Past Medical History Anemia: Yes Asthma: Yes Cancer: No Cardiac Disorders: Yes (HEART MURMUR) CVA: No COPD: No CHF: No Dementia: No Diabetes: No GI Disorders: Yes (,ibs, DIVERTICULOSIS) Disorders: No HTN: Yes Hypercholesterolemia: No Liver Disease: No Seizures: No Thyroid Disease: No - Surgical History Abdominal Surgery: No Appendectomy: No Cardiac Surgery: No Cholecystectomy: No Lung Surgery: No Neurologic Surgery: No Orthopedic Surgery: Yes (FOOT SURGERY AT 10 YEARS OLD,TONSILLECTOMY) - Immunization History Immunization Up to Date: Yes - Suicide/Smoking/Psychosocial Hx Smoking Status: No Smoking History: Never smoked Have you smoked in the past 12 months: No Number of Cigarettes Smoked Daily: 0 Hx Alcohol Use: No Drug/Substance Use Hx: No Substance Use Type: None Hx Substance Use Treatment: No <Lorenza Duque - Last Filed: 07/16/18 19:24> - Past Medical History Allergies/Adverse Reactions: Allergies Allergy/AdvReac Type Severity Reaction Status Date / Time shellfish derived Allergy Difficulty Verified 07/15/18 23:15 Breathing aspirin AdvReac Nausea Verified 07/15/18 23:15 Home Medications: Ambulatory Orders Lisinopril [Prinivil -] 40 mg PO DAILY #0 tablet 07/29/13 Amlodipine Besylate [Norvasc -] 10 mg PO DAILY 11/15/13 Dicyclomine HCl [Bentyl -] 20 mg PO Q6H PRN #30 capsule 09/10/17 Lactobacillus Acidophilus [Bacid -] 1 tab PO DAILY #30 tab 09/10/17 Amitriptyline HCl 75 mg PO HS 11/10/17 Ibuprofen/Famotidine [Duexis 800-26.6 mg Tablet] 1 tab PO BID 11/10/17 Metaxalone [Skelaxin] 800 mg PO HS 11/10/17 Polyethylene Glycol 3350 [Miralax (For Daily Use) -] 17 gm PO DAILY 11/10/17 Methocarbamol [Robaxin -] 500 mg PO TID #21 tablet 07/16/18 Methylprednisolone 8 mg PO DAILY 07/16/18 Review of Systems - Review of Systems Able to Perform ROS?: Yes Comments:: 07/16/18 01:09 GENERAL/CONSTITUTIONAL: No fever or chills. No weakness. HEAD, EYES, EARS, NOSE AND THROAT: No change in vision. No ear pain or discharge. No sore throat. CARDIOVASCULAR: No chest pain or shortness of breath. RESPIRATORY: No cough, wheezing, or hemoptysis. GASTROINTESTINAL: No nausea, vomiting, diarrhea or constipation. GENITOURINARY: No dysuria, frequency, or change in urination. MUSCULOSKELETAL: (+) L. neck pain that radiates down the L. scapula and L. arm. No joint or muscle swelling or pain. (+) back pain. SKIN: No rash NEUROLOGIC: (+) history of migraine. No headache, vertigo, loss of consciousness , or change in strength/sensation. ENDOCRINE: No increased thirst. No abnormal weight change. HEMATOLOGIC/LYMPHATIC: No anemia, easy bleeding, or history of blood clots. ALLERGIC/IMMUNOLOGIC: No hives or skin allergy. <Corrina Diane - Last Filed: 07/16/18 01:09> *Physical Exam - Vital Signs Last Vital Signs Temp Pulse Resp BP Pulse Ox 98 F 10 L 18 158/85 99 07/15/18 23:11 07/15/18 23:11 07/15/18 23:11 07/15/18 23:11 07/15/18 23:11 - Physical Exam Comments: 07/16/18 01:11 GENERAL: Awake, alert, and fully oriented, in no acute distress HEAD: No signs of trauma EYES: PERRLA, EOMI, sclera anicteric, conjunctiva clear ENT: Auricles normal inspection, hearing grossly normal, nares patent, oropharynx clear without exudates. Moist mucosa NECK: Normal ROM, supple, no lymphadenopathy, JVD, or masses LUNGS: Breath sounds equal, clear to auscultation bilaterally. No wheezes, and no crackles HEART: Regular rate and rhythm, normal S1 and S2, no murmurs, rubs or gallops ABDOMEN: Soft, nontender, normoactive bowel sounds. No guarding, no rebound. No masses EXTREMITIES: Normal range of motion, no edema. No clubbing or cyanosis. No cords, erythema, or tenderness MUSCULOSKELETAL: L. trapezius pain, pain with movement. NEUROLOGICAL: Cranial nerves II through XII grossly intact. Normal speech, normal gait SKIN: Warm, Dry, normal turgor, no rashes or lesions noted. <Corrina Diane - Last Filed: 07/16/18 01:09> - Vital Signs Last Vital Signs Temp Pulse Resp BP Pulse Ox 98 F 10 L 18 158/85 99 07/15/18 23:11 07/15/18 23:11 07/15/18 23:11 07/15/18 23:11 07/15/18 23:11 <Lorenza Duque - Last Filed: 07/16/18 19:24> ED Treatment Course - LABORATORY CBC & Chemistry Diagram: 07/16/18 00:50 07/16/18 00:50 - Medications Given in the ED: ED Medications Discontinued Medications Generic Name Dose Route Start Last Admin Trade Name Freq PRN Reason Stop Dose Admin Methocarbamol 1,000 mg 07/16/18 00:27 07/16/18 00:57 Robaxin - PO 07/16/18 00:28 1,000 mg ONCE ONE Administration Oxycodone/Acetaminophen 2 combo 07/16/18 00:26 07/16/18 00:56 Percocet 5/325 - PO 07/16/18 00:27 2 combo ONCE ONE Administration Potassium Chloride 40 meq 07/15/18 23:58 07/16/18 00:56 K-Dur - PO 07/15/18 23:59 40 meq ONCE ONE Administration Prednisone 10 mg 07/16/18 00:56 07/16/18 01:03 Deltasone - PO 07/16/18 00:57 10 mg ONCE ONE Administration <Corrina Diane - Last Filed: 07/16/18 01:09> - LABORATORY CBC & Chemistry Diagram: 07/16/18 00:50 07/16/18 00:50 <Lorenza Duque - Last Filed: 07/16/18 19:24> Medical Decision Making - Medical Decision Making 07/16/18 00:54 Pt comes with left arm pain and left trapezius pain. She has a hx of HTN and she is 57 yo; She has known spinal stenosis as well as disk herniation at c6-c7 on the left side. 07/16/18 19:23 Pt feels better with treatment in the ER; analgesics and muscle relaxants and reassurance is helping te patient. She has follow up with her neurologist and she is considering spinal surgery for repair of her stenosis etc. <Lorenza Duque - Last Filed: 07/16/18 19:24> *DC/Admit/Observation/Transfer - Attestations Scribe Attestion: 07/16/18 01:12 Documentation prepared by Corrina Diane, acting as medical sonographer for Lorenza Duque MD. <Corrina Diane - Last Filed: 07/16/18 01:09> - Discharge Dispostion Decision to Admit order: No <Lorenza Duque - Last Filed: 07/16/18 19:24> Diagnosis at time of Disposition: Arm paresthesia, left, Trapezius muscle spasm - Discharge Dispostion Disposition: HOME Condition at time of disposition: Improved - Prescriptions Prescriptions: Methocarbamol [Robaxin -] 500 mg PO TID #21 tablet - Referrals Referrals: Lance Garg MD [Primary Care Provider] - - Patient Instructions Printed Discharge Instructions: Peripheral Neuropathy, Neuropathic Pain - Post Discharge Activity
[2018-07-16] MEDS ORDERED: METHOCARBAMOL 500 MG TABLET PO ONE (00:27)
[2018-07-16] MEDS ORDERED: POTASSIUM CHLORIDE TABS 20 MEQ TABLET.ER (FP) PO ONE (00:43)
[2018-07-16] MEDS ORDERED: METHOCARBAMOL 500 MG TABLET ONE (00:43)
[2018-07-16] MEDS ORDERED: predniSONE 10 MG TABLET (UD) PO ONE (00:56)
[2018-07-16] MEDS ORDERED: predniSONE 10 MG TABLET (UD) ONE (00:58)
[2018-07-16 01:01] LABS: BASO % 0.6 % (0-2.0); HEMATOCRIT 38.1 % (32.4-45.2); HEMOGLOBIN 13.1 GM/dL (10.7-15.3); LYMPH % 8.1 % (8-40); MCH 28.7 pg (25.7-33.7); MCHC 34.3 g/dl (32.0-36.0); MEAN CELL VOLUME 83.7 fl (80-96); MEAN PLT VOLUME 7.4 fl (7.5-11.1); MONO % 5.2 % (3.8-10.2); NEUT % 86.1 % (42.8-82.8); PLATELET COUNT 305 K/MM3 (134-434); RBC 4.56 M/mm3 (3.60-5.2); RDW 14.4 % (11.6-15.6); WHITE BLOOD COUNT 11.8 K/mm3 (4.0-10.0)
[2018-07-16 01:40] LABS: ALBUMIN 3.5 g/dl (3.4-5.0); ALK PHOS 119 U/L (45-117); ANION GAP 9 MMOL/L (8-16); BILIRUBIN,TOTAL 0.2 mg/dL (0.2-1); BLOOD UREA NITROGEN 15 mg/dL (7-18); CALCIUM 8.7 mg/dL (8.5-10.1); CHLORIDE 106 mmol/L (98-107); CO2 23 mmol/L (21-32); CREATININE 0.8 mg/dL (0.55-1.3); GLUCOSE,RANDOM 115 mg/dL (74-106); SGOT/AST 27 U/L (15-37); SGPT/ALT 26 U/L (13-61); SODIUM 137 mmol/L (136-145); TOT PROT 7.5 g/dl (6.4-8.2)
[2018-07-16 06:55] VITALS: BP 148/80; PULSE 88
== END 2018-07-16 02:35 | disposition home or self-care (01) ==
LOC: JER 22:56
DX: M62.838 Other muscle spasm (principal); M50.223 Other cervical disc displacement at C6-C7 level; M48.00 Spinal stenosis, site unspecified; I10 Essential (primary) hypertension; Z86.69 Personal history of other diseases of the nervous system and sense organs; Z87.19 Personal history of other diseases of the digestive system; Z86.2 Personal history of diseases of the blood and blood-forming organs and certain disorders involving the immune mechanism; Z87.09 Personal history of other diseases of the respiratory system
CPT/HCPCS: 36415; 80053; 82550; 84484; 85025; 99282-25

== ENCOUNTER 2018-08-16 09:28 | Inpatient (IN) | payer OTHER ==
[2018-08-15 13:54] VITALS: BMI 30.7
[2018-08-16 10:29] LABS: URINE APPEARANCE SLCLOUDY; URINE BILIRUBIN NEGATIVE (<2.0 mg/dL); URINE COLOR AMBER; URINE GLUCOSE (UA) NEGATIVE (NEGATIVE); URINE KETONE NEGATIVE (NEGATIVE); URINE LEUK ESTERASE 3+ (NEGATIVE); URINE NITRITE NEGATIVE (NEGATIVE); URINE PROTEIN 1+ (NEGATIVE)
[2018-08-16 11:19] LABS: EPI CELLS RARE /HPF (FEW); URINE HYALINE CAST 4 /lpf; URINE MUCUS RARE
[2018-08-16] MEDS ORDERED: BUPIVACAINE HCL/PF 0.5% (5MG/ML) 10 ML VIAL ONE (11:33)
[2018-08-16] MEDS ORDERED: THROMBIN (BOVINE) 5,000 UNIT VIAL TP ONE ×2 (11:33→14:43)
[2018-08-16] MEDS ORDERED: GENTAMICIN SO4 80 MG/2 ML VIAL ONE (12:06)
[2018-08-16] MEDS ORDERED: THROMBIN (BOVINE) 20,000 UNIT VIAL TP ONE (12:38)
[2018-08-16] MEDS ORDERED: PROMETHAZINE HCL 25 MG/1 ML VIAL IVPB PRN (13:10)
[2018-08-16] MEDS ORDERED: DEXAMETHASONE SOD PHOSPHATE 4 MG/1 ML VIAL IVPUSH PRN (13:10)
[2018-08-16] MEDS ORDERED: ONDANSETRON 4 MG/2 ML VIAL IVPUSH PRN ×2 (13:10→16:44)
[2018-08-16] MEDS ORDERED: LACTATED RINGERS SOLUTION 1,000 ML IV SCH (13:15)
[2018-08-16] MEDS ORDERED: MIDAZOLAM HCL 2 MG/2 ML SINGLE DOSE VIAL ONE (13:24)
[2018-08-16] MEDS ORDERED: ROCURONIUM BROMIDE 50 MG/5 ML VIAL ONE ×2 (13:24→14:54)
[2018-08-16] MEDS ORDERED: PROPOFOL 20 ML ONE ×2 (13:24→14:54)
[2018-08-16] MEDS ORDERED: LIDOCAINE HCL/PF 2% SDV 5ML VIAL ONE (13:25)
[2018-08-16] MEDS ORDERED: SCOPOLAMINE HYDROBROMIDE 1 PATCH PATCH.TD72 ONE (13:43)
[2018-08-16] MEDS ORDERED: ceFAZolin SODIUM 1 GM VIAL ONE ×2 (14:01→21:38)
[2018-08-16] MEDS ORDERED: SODIUM CHLORIDE 0.9% P/F 10 ML VIAL IJ ONE ×2 (14:01→15:26)
[2018-08-16] MEDS ORDERED: ceFAZolin SODIUM 1 GM VIAL IVPB ONE (14:02)
[2018-08-16] MEDS ORDERED: VANCOMYCIN 1,000 MG VIAL (RESTRICTED TO ID ONLY) ONE (14:04)
[2018-08-16] MEDS ORDERED: VANCOMYCIN 1,000 MG VIAL (RESTRICTED TO ID ONLY) IVPB ONE (14:06)
[2018-08-16] MEDS ORDERED: GENTAMICIN SO4 80 MG/2 ML VIAL IVPB ONE (14:53)
[2018-08-16] MEDS ORDERED: GELATIN, ABSORBABLE 100 EACH SPONGE TP ONE (14:53)
[2018-08-16] MEDS ORDERED: BACITRACIN 50,000 UNITS VIAL TP ONE (14:54)
[2018-08-16] MEDS ORDERED: ePHEDrine SULFATE 50 MG/1 ML AMPULE ONE (15:10)
[2018-08-16] MEDS ORDERED: PHENYLEPHRINE HCL 10 MG/1 ML SINGLE DOSE VIAL ONE (15:26)
[2018-08-16] MEDS ORDERED: GLYCOPYRROLATE 0.2 MG/1 ML VIAL ONE (15:45)
[2018-08-16] MEDS ORDERED: NEOSTIGMINE METHYLSULFATE 0.5 MG/1 ML - 10 ML MDV ONE (15:45)
[2018-08-16] MEDS: ACETAMINOPHEN 1000 MG/100 ML VIAL (NON FORMULARY) IVPB ONE (16:30)
[2018-08-16] MEDS ORDERED: ACETAMINOPHEN INJECTION 100 ML IVPB ONE (16:42)
[2018-08-16] MEDS ORDERED: diphenhydrAMINE HCL 25 MG CAPSULE (FP) PO PRN (16:44)
[2018-08-16] MEDS ORDERED: oxyCODONE HCL 5 MG TABLET PO PRN ×2 (16:44)
[2018-08-16] MEDS ORDERED: LACTATED RINGERS SOLUTION 1,000 ML/1,000 ML INFUS.BAG IV SCH (16:45)
[2018-08-16] MEDS ORDERED: HYDROmorphone *PCA* 10MG/50ML DISP.SYRIN PCA ONE (17:08)
--- NOTE | 2018-08-16 17:15 | OP ---
Operative Note - Note: Operative Date: 08/16/18 Pre-Operative Diagnosis: Cervical stenosis with radiculopathy Operation: C3-C6 ACDF with Peek Cage and anterior plating, Corpectomies of C4 and C5 Post-Operative Diagnosis: Same as Pre-op Surgeon: Dylan Verdugo [employer] Teacher: Rosey Garcia Anesthesiologist/SUPERINTENDENT SYSTEM OPERATION: Hammad Rodriguez Anesthesia: General, Local Estimated Blood Loss (mls): 150 Drains & Tubes with Location: J/P right anterior neck Drains, Volume Out (mls): 100 (mendoza) Fluid Volume Replaced (mls): 1,200 Operative Report Dictated: Yes
--- NOTE | 2018-08-16 17:19 | SURG ---
Surgery Rn Referral Note Rn Referral: Rosey Garcia PA-C Date of Service: 08/16/18 Diagnosis: cervical stenosis with radiculopathy Procedure: C3-C6 ACDF with peek cage and anterior plating, Corpectomies of C4 and C5 I was present for the entirety of the operative procedure. For further detail, please refer to operative report. Visit type - Case Type Case Type: Scheduled - Emergency Emergency Visit: No - New patient This patient is new to me today: Yes Date on this admission: 08/16/18
[2018-08-16] MEDS: HYDROmorphone *PCA* 10MG/50ML DISP.SYRIN PCA SCH (17:30)
[2018-08-16] MEDS ORDERED: ONDANSETRON 4 MG/2 ML VIAL ONE (17:32)
[2018-08-16] MEDS ORDERED: DEXTROSE 5%-WATER - 50 ML IVPB ONE (21:38)
[2018-08-16] MEDS: BENZOCAINE/MENTH/CETYLPYRD CL 1 EACH LOZENGE MM PRN (21:44)
[2018-08-16] MEDS: DOCUSATE SODIUM 100 MG CAPSULE (FP) PO SCH (21:45)
[2018-08-16] MEDS: PREGABALIN 100 MG CAPSULE PO SCH (21:45)
[2018-08-16] MEDS: CEFAZOLIN 1 GM in DEXTROSE 5%-WATER - 50 ML IVPB SCH (21:45)
[2018-08-16] MEDS ORDERED: PT OWN MED DRAWER 7, Y5N ONE (21:55)
[2018-08-16] MEDS: AMITRIPTYLINE HCL 75 MG TABLET PO SCH (22:04)
[2018-08-17] MEDS: DICYCLOMINE HCL 10 MG CAPSULE PO SCH ×5 (00:20→17:34)
[2018-08-17] MEDS ORDERED: PT OWN MED DRAWER 7, Y5N ONE ×5 (02:09→21:22)
[2018-08-17] MEDS ORDERED: DEXTROSE 5%-WATER - 50 ML IVPB ONE ×3 (02:13→19:40)
[2018-08-17] MEDS ORDERED: ceFAZolin SODIUM 1 GM VIAL ONE ×3 (02:13→19:40)
[2018-08-17] MEDS: CEFAZOLIN 1 GM in DEXTROSE 5%-WATER - 50 ML IVPB SCH ×3 (02:19→19:48)
[2018-08-17] MEDS: DOCUSATE SODIUM 100 MG CAPSULE (FP) PO SCH ×2 (06:16→13:31)
[2018-08-17 06:36] LABS: HEMATOCRIT 32.3 % (32.4-45.2); MCH 28.6 pg (25.7-33.7); MCHC 34.2 g/dl (32.0-36.0); MEAN CELL VOLUME 83.8 fl (80-96); MEAN PLT VOLUME 6.9 fl (7.5-11.1); PLATELET COUNT 329 K/MM3 (134-434); RBC 3.86 M/mm3 (3.60-5.2); RDW 14.8 % (11.6-15.6); WHITE BLOOD COUNT 8.2 K/mm3 (4.0-10.0)
[2018-08-17 07:23] LABS: ANION GAP 8 MMOL/L (8-16); BLOOD UREA NITROGEN 7 mg/dL (7-18); CALCIUM 8.2 mg/dL (8.5-10.1); CHLORIDE 102 mmol/L (98-107); CO2 27 mmol/L (21-32); CREATININE 0.6 mg/dL (0.55-1.3); GLUCOSE,RANDOM 86 mg/dL (74-106); POTASSIUM 3.5 mmol/L (3.5-5.1); SODIUM 137 mmol/L (136-145)
--- NOTE | 2018-08-17 08:30 | PN ---
Progress Note (short form) - Note Progress Note: POD 1 Pt seen and examined. States she is feeling okay this morning. Had some pain overnight, improved with VASC TECH. Has not had anything PO. Denies n/v/d, difficulty speaking/breathing/swallowing, cp/sob, calf pain/edema. Has not been oob yet, sat at edge of bed with feet dangling last night. Endorses headache earlier which has improved slightly, per pt has migraines at baseline which are difficult to manage due issues with migraine medications and diverticulosis. Vital Signs Temp 98.8 F 08/17/18 06:34 Pulse 95 H 08/17/18 06:34 Resp 20 08/17/18 06:34 BP 132/67 08/17/18 06:34 Pulse Ox 100 08/16/18 18:15 Intake & Output 08/16/18 08/16/18 08/17/18 11:59 23:59 11:59 Intake Total 2400 1050 Output Total 690 700 Balance 1710 350 Weight 157 lb Intake: IV 2100 700 LACTATED RINGERS SOLUTION 400 700 1,000 ml In 1,000 ml @ 100 mls/hr IV ASDIR DANNIELLE Rx#:[id number] IVPB 50 50 Oral 250 300 Output: Drainage 40 Neck 20 Urine 500 700 Mendoza 700 Estimated Blood Loss 150 Other: Voiding Method Toilet # Unmeasured Voids Mendoza 200 Bowel Movement No Height 5 ft Body Mass Index (BMI) 30.7 CBC, BMP 08/17/18 05:30 08/17/18 05:30 Gen: awake, alert, nad, speaking in full sentences Neck: [place] J in place, dressing c/d/i, no surrounding hematoma, PAT in place with minimal serosanguinous drainage in reservoir (tubing stripped). Resp: unlabored, cta b/l CV: rrr, s1s2 Neuro: LUE able to raise to approx 90 degrees, RUE able to raise to 45 degrees, R hand policy intern weaker than L. L Biceps/triceps 4+/5, R biceps/triceps 4+/5. Wrist flexion/extension 4+/5 b/l, Sensation slightly diminished in LUE as compared to R (baseline per pt) (exam limited likely due to pain, pt noted to be grimacing during examination-encouraged to use VASC TECH). A/P: 57 y/o F w/ PMHx diverticulosis, IBS, migraine, cervical stenosis with radiculopathy, now POD 1, s/p C3-C6 ACDF with peek cage and anterior plating, Corpectomies of C4 and C5. Examination somewhat limited due to pain, RUE with possible deltoid palsy. Labs stable, VSS. PAT output 40cc overnight A/P: VASC TECH per anesthesia (utilization encouraged), will be assessed later for transition to PO pain meds D/C mendoza Incentive spirometry encouraged OOB with assistance [place] J collar to remain in place for 23/24 hours (may remove while eating) VS per routine Neurovascular checks per routine Monitor and record drain output Continue Ancef 1g q8hrs while drain is in place DVT prophylaxis with Heparin 5000units q8hrs, b/l scds Advance diet as tolerated Continue IVF until tolerating PO Bowel regimen as ordered Home meds as ordered plan d/w attending Dr Conn
--- NOTE | 2018-08-17 08:38 | HP ---
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: Migraine (chronic), Other (trigeminal neuralgia) Cardiovascular: Yes: HTN Gastrointestinal: Yes: Diverticulitis (diverticulosis) - Past Surgical History Past Surgical History: Yes: Hysterectomy (BSO for endometriosis), Tonsillectomy Additional Past Surgical History: foot surgery - Smoking History Smoking history: Never smoked Have you smoked in the past 12 months: No Aproximately how many cigarettes per day: 0 If you are a former smoker, when did you quit?: 25 years ago - Alcohol/Substance Use Hx Alcohol Use: No - Social History ADL: Independent History of Recent Travel: No Home Medications - Allergies Allergies/Adverse Reactions: Allergies Allergy/AdvReac Type Severity Reaction Status Date / Time shellfish derived Allergy Difficulty Verified 08/14/18 17:59 Breathing aspirin AdvReac Nausea Verified 08/14/18 17:59 - Home Medications Home Medications: Ambulatory Orders Lisinopril [Prinivil -] 40 mg PO DAILY #0 tablet 07/29/13 Amlodipine Besylate [Norvasc -] 10 mg PO DAILY 11/15/13 Amitriptyline HCl 75 mg PO HS 11/10/17 Ibuprofen/Famotidine [Duexis 800-26.6 mg Tablet] 1 tab PO BID 11/10/17 Polyethylene Glycol 3350 [Miralax (For Daily Use) -] 17 gm PO DAILY 11/10/17 Butalb/Acetaminophen/Caffeine [Fioricet 50-300-40 mg Capsule] 1 each PO ASDIR Dicyclomine HCl [Bentyl -] 10 mg PO Q6H 08/15/18 L.acidoph,Paracasei, B.lactis [Probiotic] 1 each PO DAILY 08/15/18 Magnesium Oxide [Magnesium] 500 mg PO DAILY 08/15/18 Metaxalone [Metaxall] 800 mg PO TID 08/15/18 Pregabalin [Lyrica] 200 mg PO BID 08/15/18 Tramadol HCl 50 mg PO ASDIR PRN 08/15/18 Vit B12/Intrinsic Fact/Folate [Intrinsi U31-Yjfeee Tablet] 1,000 mg IM MONTHLY 08/15/18 Vit D3/Folic Acid/B2/B6/B12 [Folgard Tablet] 1,000 mg PO DAILY 08/15/18 Family Disease History - Family Disease History Family History: Unremarkable Review of Systems - Review of Systems Neck: reports: Decreased ROM, Stiffness Cardiovascular: reports: No Symptoms Respiratory: reports: No Symptoms Gastrointestinal: reports: No Symptoms Genitourinary: reports: No Symptoms Musculoskeletal: reports: No Symptoms Integumentary: reports: No Symptoms Neurological: reports: Headache Physical Examination Vital Signs: Vital Signs Temperature 98.8 F 08/17/18 06:34 Pulse Rate 95 H 08/17/18 06:34 Respiratory Rate 20 08/17/18 06:34 Blood Pressure 132/67 08/17/18 06:34 O2 Sat by Pulse Oximetry (%) 100 08/16/18 18:15 Constitutional: Yes: No Distress, Calm Eyes: Yes: Conjunctiva Clear, EOM Intact HENT: Yes: Atraumatic, Normocephalic Neck: Yes: Other (in cervical collar) Cardiovascular: Yes: Regular Rate and Rhythm Respiratory: Yes: Regular, CTA Bilaterally Gastrointestinal: Yes: Normal Bowel Sounds, Soft Musculoskeletal: Yes: WNL Extremities: Yes: WNL Edema: No Peripheral Pulses WNL: Yes Wound/Incision: Yes: Dressing Dry and Intact, Draining (sanginous) ...Motor Strength: WNL Psychiatric: Yes: WNL Labs: CBC, BMP 08/17/18 05:30 08/17/18 05:30 Imaging - Results Cat Scan: Report Reviewed Problem List - Problems (1) H/O cervical spine surgery Code(s): Z98.890 - OTHER SPECIFIED POSTPROCEDURAL STATES (2) Arm paresthesia, left Code(s): R20.2 - PARESTHESIA OF SKIN (3) Diverticulosis Code(s): K57.90 - DVRTCLOS OF INTEST, PART UNSP, W/O PERF OR ABSCESS W/O BLEED Qualifiers: Diverticulosis site: diverticulosis of large intestine Diverticulosis bleeding: diverticulosis without bleeding Qualified Code(s): K57.30 - Diverticulosis of large intestine without perforation or abscess without bleeding (4) Headache Code(s): R51 - HEADACHE Qualifiers: Headache type: unspecified Headache chronicity pattern: unspecified pattern Intractability: not intractable Qualified Code(s): R51 - Headache Assessment/Plan postop f/up as per surgery medically stable
[2018-08-17] MEDS: HYDROmorphone *PCA* 10MG/50ML DISP.SYRIN PCA SCH ×2 (09:34→12:21)
[2018-08-17] MEDS: ACETAMINOPHEN 1000 MG/100 ML VIAL (NON FORMULARY) IVPB ONE (09:35)
[2018-08-17] MEDS: HEPARIN NA (PORCINE) 5,000 UNITS/ML 1ML VIAL SQ SCH ×2 (10:03→13:28)
[2018-08-17] MEDS: FOLIC ACID 1 MG TABLET (FP) PO SCH (10:04)
[2018-08-17] MEDS: FERROUS SO4 325 MG TABLET (FP) PO SCH (10:04)
[2018-08-17] MEDS: amLODIPine BESYLATE 5 MG TABLET (FP) PO SCH (10:04)
[2018-08-17] MEDS: PREGABALIN 100 MG CAPSULE PO SCH (10:04)
[2018-08-17] MEDS: MAGNESIUM OXIDE 400 MG TABLET (FP) PO SCH (10:04)
[2018-08-17] MEDS: LISINOPRIL 20 MG TABLET (FP) PO SCH (10:04)
--- NOTE | 2018-08-17 10:27 | PN ---
Progress Note (short form) - Note Progress Note: Anesthesia POD#1 S/P PLIF under GA and Intrathecal Morphine VSS,eating well,no N/V,no injuries,IV BOTTLE CAPPING MACHINE OPERATOR is helping her. A/P Continue the Dilaudid BOTTLE CAPPING MACHINE OPERATOR for today. Cherry Arreaga MD.
[2018-08-17] MEDS: POLYETHYLENE GLYCOL 3350 119 GM BTL PO SCH (11:28)
--- NOTE | 2018-08-17 12:22 | PN ---
Progress Note (short form) - Note Progress Note: Anterior cervical drain was pulled at bedside without incident, dermabond and clean dressing was placed.
[2018-08-17] MEDS: BENZOCAINE/MENTH/CETYLPYRD CL 1 EACH LOZENGE MM PRN (17:56)
[2018-08-17] MEDS ORDERED: NALOXONE HCL 0.4 MG/ML VIAL IVPUSH ONE (21:40)
--- NOTE | 2018-08-17 21:49 | RAPID ---
Physical Examination Vital Signs: Vital Signs Temperature 99.2 F 08/17/18 17:10 Pulse Rate 104 H 08/17/18 17:10 Respiratory Rate 20 08/17/18 17:10 Blood Pressure 147/82 08/17/18 17:10 O2 Sat by Pulse Oximetry (%) 96 08/17/18 09:00 152/90 -> 161/94 HR 124 bpm 71% RA 2LNC 99%RA Respirations 24 breaths per minute Constitutional: Yes: Calm Eyes: Yes: Conjunctiva Clear HENT: Yes: Atraumatic, Normocephalic, Other (cervical collar in place) Neck: Yes: Supple, Rigid Cardiovascular: Yes: Regular Rate and Rhythm, Tachycardia, S1, S2 Respiratory: Yes: On Nasal O2, Rhonchi, SOB, Tachypnea Gastrointestinal: Yes: Soft Labs: CBC, BMP 08/17/18 05:30 08/17/18 05:30 Rapid Response - Rapid Response Assessment: Patient is 57 year old female history of HTN, diverticulosis, POD#1 s/p cervical spine surgery. Rapid response was called at 9:37PM. Patient was noted to be hypoxic, lethargic , and foaming at the mouth. Plan: STAT EKG STAT CT soft tissue neck for possible hematoma, post-surgical STAT D-dimer STAT CTA to rule out pulmonary embolism STAT chest xray Narcan 0.4mg IV push as patient has been on AUTOMOTIVE PRODUCT ENGINEER Patient seen with attending Dr. Thompson. Case was discussed with Dr. Montanez (over phone) Transfer to telemetry, will maintain low threshold for ICU transfer if necessary.
[2018-08-17 22:12] LABS: BASO % 0.3 % (0-2.0); HEMATOCRIT 36.4 % (32.4-45.2); HEMOGLOBIN 12.7 GM/dL (10.7-15.3); LYMPH % 6.2 % (8-40); MCH 28.9 pg (25.7-33.7); MCHC 34.7 g/dl (32.0-36.0); MEAN CELL VOLUME 83.1 fl (80-96); MEAN PLT VOLUME 6.9 fl (7.5-11.1); MONO % 4.6 % (3.8-10.2); NEUT % 88.9 % (42.8-82.8); PLATELET COUNT 394 K/MM3 (134-434); RBC 4.39 M/mm3 (3.60-5.2); WHITE BLOOD COUNT 16.6 K/mm3 (4.0-10.0)
[2018-08-17 22:26] LABS: INR 1.15 (0.83-1.09); PROTHROMBIN TIME (PATIENT) 13.6 SEC (9.7-13.0)
[2018-08-17 22:29] LABS: ACTIVATED PTT 24.2 SECONDS (25.2-36.5)
[2018-08-17 23:08] LABS: ALBUMIN 3.3 g/dl (3.4-5.0); ALK PHOS 125 U/L (45-117); ANION GAP 10 MMOL/L (8-16); BILIRUBIN,TOTAL 0.2 mg/dL (0.2-1); BLOOD UREA NITROGEN 5 mg/dL (7-18); CALCIUM 8.2 mg/dL (8.5-10.1); CHLORIDE 92 mmol/L (98-107); CO2 29 mmol/L (21-32); CREATININE 0.7 mg/dL (0.55-1.3); GLUCOSE,RANDOM 128 mg/dL (74-106); POTASSIUM 3.1 mmol/L (3.5-5.1); SGOT/AST 27 U/L (15-37); SGPT/ALT 21 U/L (13-61); SODIUM 131 mmol/L (136-145)
[2018-08-18] MEDS ORDERED: ceFAZolin SODIUM 1 GM VIAL ONE (01:30)
[2018-08-18] MEDS ORDERED: KCL 10 MEQ IVPB 10 MEQ/100 ML INFUS.BAG IVPB SCH (01:30)
[2018-08-18] MEDS ORDERED: DEXTROSE 5%-WATER - 50 ML IVPB ONE (01:30)
[2018-08-18] MEDS: MORPHINE SULFATE 2 MG/ML VIAL IVPUSH PRN ×4 (01:30→21:39)
[2018-08-18] MEDS ORDERED: FAMOTIDINE 20 MG/50 ML IVPB 20 MG/50 ML MG IVPB ONE (01:30)
--- NOTE | 2018-08-18 01:36 | CONSULT ---
Consultation: REQUESTING PROVIDER: Dr. Hicks CONSULT REQUEST: We have been asked to medically evaluate this patient for Retropharyngeal soft tissue edema HISTORY OF PRESENT ILLNESS: Patient is a 57 year old female with a PMHx of Anemia, Asthma, HTN, chronic neck and back pain, migraines, cervical dis disease who presented to the hospital for cervical surgery with Dr. Verdugo and is now POD #1 s/p C3-C6 ACDF with Peek Cage and anterior plating, Corpectomies of C4 and C5. Patient had no complication after the surgery with EBL of 150. However, around 2136 tonight Rapid Response was called on patient due to hypoxia and lethargy. Patient was given Narcan as patient has been on BOOK CRITIC. 2L NC given with 02 saturation 100%. Stat Soft tissue neck CT ordered, which revealed retropharyngeal soft tissue edema associated with airway narrowing, and patient was sent here to the ICU for further monitoring and management. Patient reports having a migraine as she states has been a chronic and on going issue. Otherwise, patient denies fever, chills, nausea, vomiting, abdominal pain, chest pain, palpitations, diarrhea, constipation. PMHx: Anemia, Asthma, HTN, chronic neck and back pain, migraines, cervical dis disease, IBS, diverticulosis PSHx: Tonsillectomy Social Hx: Denies drugs, alcohol, smoking Allergies: Aspirin, shellfish REVIEW OF SYSTEMS: CONSTITUTIONAL: Absent: fever, chills, diaphoresis, generalized weakness, malaise, loss of appetite, weight change HEENT: Absent: rhinorrhea, nasal congestion, throat pain, throat swelling, difficulty swallowing, mouth swelling, ear pain, eye pain, visual changes CARDIOVASCULAR: Absent: chest pain, syncope, palpitations, irregular heart rate, lightheadedness , peripheral edema RESPIRATORY: shortness of breath Absent: cough, dyspnea with exertion, orthopnea, wheezing, stridor, hemoptysis GASTROINTESTINAL: Absent: abdominal pain, abdominal distension, nausea, vomiting, diarrhea, constipation, melena, hematochezia GENITOURINARY: Absent: dysuria, frequency, urgency, hesitancy, hematuria, flank pain, genital pain MUSCULOSKELETAL: Absent: myalgia, arthralgia, joint swelling, back pain, neck pain SKIN: Absent: rash, itching, pallor HEMATOLOGIC/IMMUNOLOGIC: Absent: easy bleeding, easy bruising, lymphadenopathy, frequent infections ENDOCRINE: Absent: unexplained weight gain, unexplained weight loss, heat intolerance, cold intolerance NEUROLOGIC: headache Absent: focal weakness or paresthesias, dizziness, unsteady gait, seizure, mental status changes, bladder or bowel incontinence PSYCHIATRIC: Absent: anxiety, depression, suicidal or homicidal ideation, hallucinations. PHYSICAL EXAMINATION Vital Signs - 24 hr 08/17/18 08/17/18 08/17/18 06:34 09:00 10:00 Temperature 98.8 F 99.1 F Pulse Rate 95 H 104 H Respiratory 20 20 Rate Blood Pressure 132/67 134/80 O2 Sat by Pulse 96 Oximetry (%) 08/17/18 08/17/18 08/17/18 14:50 17:10 22:54 Temperature 98 F 99.2 F Pulse Rate 104 H 104 H Respiratory 19 20 Rate Blood Pressure 139/78 147/82 O2 Sat by Pulse 99 Oximetry (%) GENERAL: Awake, alert, and fully oriented,in mild painful distress HEAD: Normal with no signs of trauma. EYES: Pupils equal, round and reactive to light, extraocular movements intact, sclera anicteric, conjunctiva clear. No lid lag. EARS, NOSE, THROAT: Oropharynx clear without exudates. Moist mucous membranes. NECK: (+) cervical collar LUNGS: Scattered Rhonchi with some mild expiratory wheezing. No accessory muscle use. HEART: Tachycardic with regular rhythm, normal S1 and S2 without murmur, rub or gallop. ABDOMEN: Soft, nontender, not distended, normoactive bowel sounds, no guarding, no rebound, no masses. MUSCULOSKELETAL: NNo CVA tenderness. LOWER EXTREMITIES: 2+ pulses, warm, well-perfused. No calf tenderness. No peripheral edema. NEUROLOGICAL: Cranial nerves II-XII intact. Sensory intact. Unable to fully assess motor strength due to pain. PSYCHIATRIC: Cooperative. Good eye contact. Appropriate mood and affect. SKIN: Warm, dry, normal turgor, no rashes or lesions noted. Laboratory Results - last 24 hr 08/17/18 08/17/18 08/17/18 05:30 05:30 22:00 WBC 8.2 RBC 3.86 Hgb 11.0 Hct 32.3 L D MCV 83.8 MCH 28.6 MCHC 34.2 RDW 14.8 Plt Count 329 MPV 6.9 L Absolute Neuts (auto) Neutrophils % Lymphocytes % Monocytes % Eosinophils % Basophils % Nucleated RBC % PT with INR INR PTT (Actin FS) D-Dimer 846 H Sodium 137 Potassium 3.5 Chloride 102 Carbon Dioxide 27 Anion Gap 8 BUN 7 Creatinine 0.6 Creat Clearance w eGFR > 60 Random Glucose 86 Calcium 8.2 L Total Bilirubin AST ALT Alkaline Phosphatase Troponin I Total Protein Albumin 08/17/18 08/17/18 08/17/18 22:00 22:00 22:00 WBC 16.6 H RBC 4.39 Hgb 12.7 Hct 36.4 MCV 83.1 MCH 28.9 MCHC 34.7 RDW 15.0 Plt Count 394 MPV 6.9 L Absolute Neuts (auto) 14.7 H Neutrophils % 88.9 H Lymphocytes % 6.2 L D Monocytes % 4.6 Eosinophils % 0.0 Basophils % 0.3 Nucleated RBC % 0 PT with INR 13.60 H INR 1.15 H PTT (Actin FS) 24.2 L D-Dimer Sodium 131 L Potassium 3.1 L Chloride 92 L Carbon Dioxide 29 Anion Gap 10 BUN 5 L Creatinine 0.7 Creat Clearance w eGFR > 60 Random Glucose 128 H Calcium 8.2 L Total Bilirubin 0.2 AST 27 ALT 21 Alkaline Phosphatase 125 H Troponin I Total Protein 7.0 Albumin 3.3 L Active Medications Generic Name Dose Route Start Last Admin Trade Name Freq PRN Reason Stop Dose Admin Amitriptyline HCl 75 mg 08/16/18 22:00 08/16/18 22:04 Elavil - PO 75 mg HS DANNIELLE Administration Amlodipine Besylate 10 mg 08/17/18 10:00 08/17/18 10:04 Norvasc - PO 10 mg DAILY DANNIELLE Administration Benzocaine/Menthol 1 each 08/16/18 18:42 08/17/18 17:56 Cepacol Lozenge - MM 1 each Q2H PRN Administration SORE THROAT Dicyclomine HCl 10 mg 08/16/18 17:30 08/17/18 17:34 Bentyl - PO 10 mg Q6HPO DANNIELLE Administration Diphenhydramine HCl 25 mg 08/16/18 16:44 Benadryl - PO Q6H PRN FOR ITCHING Diphenhydramine HCl 50 mg 08/17/18 22:29 Benadryl Injection - IVPUSH 08/17/18 22:30 ONCE ONE Docusate Sodium 100 mg 08/16/18 22:00 08/17/18 13:31 Colace - PO 100 mg TID DANNIELLE Administration Ferrous Sulfate 325 mg 08/17/18 10:00 08/17/18 10:04 Feosol - PO 325 mg DAILY DANNIELLE Administration Folic Acid 1 mg 08/17/18 10:00 08/17/18 10:04 Folic Acid - PO 1 mg DAILY DANNIELLE Administration Heparin Sodium (Porcine) 5,000 unit 08/17/18 10:00 08/17/18 13:28 Heparin - SQ Not Given TID [facility] Hydromorphone HCl 10 mg 08/16/18 13:15 08/17/18 12:21 Dilaudid Security Delivery Specialist - BOOK CRITIC 08/23/18 13:10 Not Given BOOK CRITIC [facility] Protocol Cefazolin Sodium 1 gm/ 50 mls @ 100 mls/hr 08/16/18 22:00 08/17/18 19:48 Dextrose IVPB 100 mls/hr Q8H-IV DANNIELLE Administration Lactated Ringer's 1,000 ml in 1,000 mls @ 100 mls/hr 08/16/18 16:45 08/17/18 02:20 Lactated Ringers Solution IV 100 mls/hr ASDIR DANNIELLE Administration Famotidine/Sodium Chloride 20 mg in 50 mls @ 100 mls/hr 08/17/18 22:31 Pepcid 20 Mg Premixed Ivpb - IVPB 08/17/18 23:00 ONCE ONE Potassium Chloride 10 meq in 100 mls @ 100 mls/hr 08/17/18 23:45 Potassium Chloride 10 Meq Premix Ivpb - IVPB 08/18/18 00:44 Q60M [facility] Lisinopril 40 mg 08/17/18 10:00 08/17/18 10:04 Prinivil PO 40 mg DAILY [facility] Administration Magnesium Oxide 400 mg 08/17/18 10:00 08/17/18 10:04 Mag-Ox - PO 400 mg DAILY [facility] Administration Morphine Sulfate 2 mg 08/16/18 16:44 Morphine Sulfate IVPUSH Q4H PRN PAIN LEVEL 6 - 10 Non-Formulary Medication 800 mg 08/16/18 22:00 Metaxalone [Metaxall] PO TID [facility] Ondansetron HCl 4 mg 08/16/18 13:10 Zofran Injection IVPUSH Q4H PRN NAUSEA AND/OR VOMITING Ondansetron HCl 4 mg 08/16/18 16:44 08/16/18 17:30 Zofran Injection IVPUSH 4 mg Q6H PRN Administration NAUSEA Oxycodone HCl 5 mg 08/16/18 16:44 Roxicodone - PO Q4H PRN PAIN LEVEL 1-5 Oxycodone HCl 10 mg 08/16/18 16:44 Roxicodone - PO Q4H PRN PAIN 6-10; IF MORPHINE NT WRK Polyethylene Glycol 17 gm 08/17/18 10:00 08/17/18 11:28 Miralax (For Daily Use) - PO 17 mg DAILY DANNIELLE Administration Pregabalin 200 mg 08/16/18 22:00 08/17/18 10:04 Lyrica - PO 200 mg BID DANNIELLE Administration Promethazine HCl 12.5 mg 08/16/18 13:10 Phenergan Injection - IVPB Q6H PRN NAUSEA AND/OR VOMITING ASSESSMENT/PLAN: Patient is a 57 year old female who was admitted for cervical surgery with Dr. Verdugo and is now POD #1. Patient had rapid response called for hypoxia and lethargy and Soft tissue neck CT revealed retropharyngeal edema with airway narrowing. Patient admitted to ICU for further monitoring and management. PULMONARY #Acute Hypoxic Respiratory failure -Secondary to retropharyngeal soft tissue edema associated with airway narrowing. Patient is POD #1 s/p cervical surgery. -Benadryl and Famotidine ordered by RR team -Will order one time dose of Medrol 125mg IVP to help with the inflammation and swelling -Continue 02 NC and maintain SPo2 >95% -Will avoid fluid overload as it may cause worsening hypoxia -Encourage Incentive Spirometer -Pain control with Morphine and Oxycodone -Will keep NPO SURGICAL #S/P C3-C6 ACDF with Peek Cage and anterior plating, Corpectomies of C4 and C5. -POD#1 -Continue pain control with Morphine and Oxycodone. BOOK CRITIC stopped due to respiratory hypoxia -Discontinued IV Fluids as patient has airway narrowing and neck edema. Will need to prevent further airway compromise -DVT prophylaxis with Heparin SQ -Will contact neurosurgeon on further management CARDIOLOGY #HTN -Continue home medications Amlodipine 10mg po and Lisinopril 40mg daily -Continue to monitor BP NEUROLOGY #Chronic Neck and Back Pain/ Cervical Disk Disease -Continue Metaxall 800mg TID, Lyrica 200mg BID GASTROENTEROLOGY #IBS -Continue home medication Bentyl HEMATOLOGY #Iron Def. Anemia -Continue Ferrous Sulfate 325mg daily and Folic Acid 1mg daily PSYCH #Anxiety/Depression -Elavil 75mg HS F/E/N -Stop IV fluids as patient is hypoxic and will avoid fluid overload -Hypokalemia. Replete with KCl and repeat -NPO Prophylaxis -Heparin 5000 units Sq TID for DVT -Famotidine for GI Disposition -Full code -Monitor for worsening hypoxia Dispo: We will continue to follow the patient. Thank you for this consultative opportunity. Martina Harmon [id number] Visit type - Emergency Visit Emergency Visit: Yes ED Registration Date: 08/16/18 Care time: The patient presented to the Emergency Department on the above date and was hospitalized for further evaluation of their emergent condition. - New Patient This patient is new to me today: Yes Date on this admission: 08/17/18 - Critical Care Critical Care patient: Yes Total Critical Care Time (in minutes): 45 Critical Care Statement: The care of this patient involved high complexity decision making to prevent further life threatening deterioration of the patient 's condition and/or to evaluate & treat vital organ system(s) failure or risk of failure.
[2018-08-18] MEDS ORDERED: methylPREDNISolone NA SUCC 125 MG/2 ML VIAL IVPUSH ONE (02:11)
[2018-08-18] MEDS: CEFAZOLIN 1 GM in DEXTROSE 5%-WATER - 50 ML IVPB SCH (02:39)
[2018-08-18] MEDS: DICYCLOMINE HCL 10 MG CAPSULE PO SCH ×3 (06:10→15:26)
[2018-08-18] MEDS: DOCUSATE SODIUM 100 MG CAPSULE (FP) PO SCH ×3 (06:10→15:26)
[2018-08-18] MEDS: HEPARIN NA (PORCINE) 5,000 UNITS/ML 1ML VIAL SQ SCH ×4 (06:13→21:23)
[2018-08-18 07:29] LABS: HEMATOCRIT 38.2 % (32.4-45.2); HEMOGLOBIN 12.9 GM/dL (10.7-15.3); MCH 27.9 pg (25.7-33.7); MCHC 33.7 g/dl (32.0-36.0); MEAN CELL VOLUME 82.6 fl (80-96); PLATELET COUNT 389 K/MM3 (134-434); RBC 4.62 M/mm3 (3.60-5.2); RDW 14.8 % (11.6-15.6); WHITE BLOOD COUNT 21.4 K/mm3 (4.0-10.0)
[2018-08-18 07:39] LABS: INR 1.23 (0.83-1.09); PROTHROMBIN TIME (PATIENT) 14.5 SEC (9.7-13.0)
[2018-08-18 07:51] LABS: ALBUMIN 3.2 g/dl (3.4-5.0); ALK PHOS 127 U/L (45-117); ANION GAP 10 MMOL/L (8-16); BILIRUBIN,TOTAL 0.3 mg/dL (0.2-1); BLOOD UREA NITROGEN 6 mg/dL (7-18); CALCIUM 8.9 mg/dL (8.5-10.1); CHLORIDE 96 mmol/L (98-107); CO2 27 mmol/L (21-32); CREATININE 0.7 mg/dL (0.55-1.3); GLUCOSE,RANDOM 132 mg/dL (74-106); MAGNESIUM 2.4 mg/dL (1.8-2.4); PHOSPHOROUS 2.7 mg/dL (2.5-4.9); POTASSIUM 3.6 mmol/L (3.5-5.1); SGOT/AST 29 U/L (15-37); SGPT/ALT 22 U/L (13-61); SODIUM 133 mmol/L (136-145); TOT PROT 7.2 g/dl (6.4-8.2)
--- NOTE | 2018-08-18 08:05 | PN ---
Progress Note (short form) - Note Progress Note: POD 2 Pt seen and examined in ICU. Pt had RR, per EMR: Rapid response was called at 9: 37PM. Patient was noted to be hypoxic, lethargic, and foaming at the mouth. Pt recounts details prior to the RR, stating she remembers attempting to eat dinner (tender chicken and carrots) and having pain swallowing which she attempted to relieve with DIRECTOR OF SPECIAL SERVICES pushes. States next thing she recalls is being downstairs for a scan. Currently, pt reports some pain with swallowing and persistent saliva and congestion. Denies any difficulty breathing or speaking. Denies cp/sob, n/v/d, calf pain/edema, motor/sensory deficits. Reports her RUE feels stronger than yesterday and she is able to lift it higher. Pt was oob with PT yesterday without issues. Vital Signs Temp 99.1 F 08/18/18 06:07 Pulse 94 H 08/18/18 06:07 Resp 20 08/18/18 06:07 BP 160/94 08/18/18 06:07 Pulse Ox 99 08/17/18 22:54 Intake & Output 08/17/18 08/17/18 08/18/18 11:59 23:59 11:59 Intake Total 1050 840 250 Output Total 700 1000 400 Balance 350 -160 -150 Intake: IV 700 LACTATED RINGERS SOLUTION 700 1,000 ml In 1,000 ml @ 100 mls/hr IV ASDIR [facility] Rx#:[id number] IVPB 50 250 Oral 300 440 Tube Irrigant 400 Output: Urine 700 1000 400 Mendoza 700 1000 400 Other: Voiding Method Indwelling Catheter Bedpan Bowel Movement No CBC, BMP 08/18/18 07:00 08/18/18 07:00 Gen: awake, alert, nad, speaking in full sentences Neck: [place] J in place, dressing c/d/i, no surrounding hematoma, PAT drain site dressing c/d/i. Resp: unlabored, mild expiratory wheezing noted CV: rrr, s1s2 Neuro: Able to raise b/l ue's to 180degrees without difficulty, no drift noted. R hand customer specialist slightly weaker than L. L Biceps/triceps 4+/5, R biceps/triceps 4+/ 5. Wrist flexion/extension 4+/5 b/l, Sensation slightly diminished in LUE as compared to R (baseline per pt) A/P: 57 y/o F w/ PMHx diverticulosis, IBS, migraine, cervical stenosis with radiculopathy, now POD 2, s/p C3-C6 ACDF with peek cage and anterior plating, Corpectomies of C4 and C5. In ICU for monitoring due to RR overnight, CT scan with prevertebral/ retropharyngeal soft tissue swelling with associated airway narrowing. Received 125mg Solumedrol overnight with some improvement. Neuro exam slightly improved this AM. A/P: Continue ICU observation No speech and swallow eval per attending May give Solumedrol per ICU D/C mendoza Incentive spirometry encouraged OOB with assistance [place] J collar to remain in place for 23/24 hours (may remove while eating) VS per routine Neurovascular checks per routine DVT prophylaxis with Heparin 5000units q8hrs, b/l scds Advance diet as tolerated Continue IVF until tolerating PO Bowel regimen as ordered Home meds as ordered above d/w attending Dr Verdugo
[2018-08-18] MEDS: BENZOCAINE/MENTH/CETYLPYRD CL 1 EACH LOZENGE MM PRN (08:51)
[2018-08-18] MEDS ORDERED: PREGABALIN 100 MG CAPSULE PO SCH ×2 (09:24→22:00)
--- NOTE | 2018-08-18 09:29 | PN ---
Progress Note (short form) - Note Progress Note: patient developed drooling, lethargy and hypoxia yesterday evening. improved with oxygen, also received naloxone due to concern of opiod overmedication. transferred to icu stat CT neck showed soft tissue edema, airway narrowing. currently pt is saturating 100% on L NC. breathing well unable to swallow her saliva due to pain CBC, BMP 08/18/18 07:00 08/18/18 07:00 Vital Signs Period Temp Pulse Resp BP Sys/Ramachandran Pulse Ox Last 24 Hr 98 F-100.4 F 94-104 12-20 131-160/75-95 99 Active Medications Amlodipine Besylate (Norvasc -) 10 mg PO DAILY [facility] Last Admin: 08/17/18 10:04 Dose: 10 mg Benzocaine/Menthol (Cepacol Lozenge -) 1 each MM Q2H PRN PRN Reason: SORE THROAT Last Admin: 08/18/18 08:51 Dose: 1 each Dicyclomine HCl (Bentyl -) 10 mg PO Q6HPO [facility] Last Admin: 08/18/18 06:10 Dose: Not Given Diphenhydramine HCl (Benadryl -) 25 mg PO Q6H PRN PRN Reason: FOR ITCHING Docusate Sodium (Colace -) 100 mg PO TID [facility] Last Admin: 08/18/18 06:10 Dose: Not Given Ferrous Sulfate (Feosol -) 325 mg PO DAILY [facility] Last Admin: 08/17/18 10:04 Dose: 325 mg Folic Acid (Folic Acid -) 1 mg PO DAILY [facility] Last Admin: 08/17/18 10:04 Dose: 1 mg Heparin Sodium (Porcine) (Heparin -) 5,000 unit SQ TID [facility] Last Admin: 08/18/18 06:13 Dose: 5,000 unit Lisinopril (Prinivil) 40 mg PO DAILY [facility] Last Admin: 08/17/18 10:04 Dose: 40 mg Magnesium Oxide (Mag-Ox -) 400 mg PO DAILY [facility] Last Admin: 08/17/18 10:04 Dose: 400 mg Morphine Sulfate (Morphine Sulfate) 2 mg IVPUSH Q4H PRN PRN Reason: PAIN LEVEL 6 - 10 Last Admin: 08/18/18 08:35 Dose: 2 mg Non-Formulary Medication (Metaxalone [Metaxall]) 800 mg PO TID [facility] Ondansetron HCl (Zofran Injection) 4 mg IVPUSH Q4H PRN PRN Reason: NAUSEA AND/OR VOMITING Ondansetron HCl (Zofran Injection) 4 mg IVPUSH Q6H PRN PRN Reason: NAUSEA Last Admin: 08/16/18 17:30 Dose: 4 mg Oxycodone HCl (Roxicodone -) 5 mg PO Q4H PRN PRN Reason: PAIN LEVEL 1-5 Oxycodone HCl (Roxicodone -) 10 mg PO Q4H PRN PRN Reason: PAIN 6-10; IF MORPHINE NT WRK Polyethylene Glycol (Miralax (For Daily Use) -) 17 gm PO DAILY [facility] Last Admin: 08/17/18 11:28 Dose: 17 mg Pregabalin (Lyrica -) 100 mg PO BID [facility] Promethazine HCl (Phenergan Injection -) 12.5 mg IVPB Q6H PRN PRN Reason: NAUSEA AND/OR VOMITING S1S2 RRR Lungs cta abd soft no edema aaox3, no focal deficit IMP C3-6 ACDF POD#2 airway compromise due to soft tissue edema monitor in ICU neurosurgical f/up pain medication adjustment Problem List - Problems (1) H/O cervical spine surgery Code(s): Z98.890 - OTHER SPECIFIED POSTPROCEDURAL STATES (2) Arm paresthesia, left Code(s): R20.2 - PARESTHESIA OF SKIN (3) Diverticulosis Code(s): K57.90 - DVRTCLOS OF INTEST, PART UNSP, W/O PERF OR ABSCESS W/O BLEED Qualifiers: Diverticulosis site: diverticulosis of large intestine Diverticulosis bleeding: diverticulosis without bleeding Qualified Code(s): K57.30 - Diverticulosis of large intestine without perforation or abscess without bleeding (4) Headache Code(s): R51 - HEADACHE Qualifiers: Headache type: unspecified Headache chronicity pattern: unspecified pattern Intractability: not intractable Qualified Code(s): R51 - Headache
[2018-08-18] MEDS: amLODIPine BESYLATE 5 MG TABLET (FP) PO SCH (10:17)
[2018-08-18] MEDS: FERROUS SO4 325 MG TABLET (FP) PO SCH (10:19)
[2018-08-18] MEDS: LISINOPRIL 20 MG TABLET (FP) PO SCH (10:20)
[2018-08-18] MEDS: MAGNESIUM OXIDE 400 MG TABLET (FP) PO SCH (10:21)
[2018-08-18] MEDS: FOLIC ACID 1 MG TABLET (FP) PO SCH (10:21)
[2018-08-18] MEDS: POLYETHYLENE GLYCOL 3350 119 GM BTL PO SCH (11:21)
--- NOTE | 2018-08-18 11:50 | PN ---
Teaching Attending Note Name of Resident: Grady Goodrich ATTENDING PHYSICIAN STATEMENT I saw and evaluated the patient. I reviewed the resident's note and discussed the case with the resident. I agree with the resident's findings and plan as documented. SUBJECTIVE: Patient seen and examined in the ICU. Awake and alert. Still with some sore throat but better today. No pooling of saliva. Neuro exam intact. No CP or SOB. CT results noted. Intake & Output 08/15/18 08/16/18 08/17/18 08/18/18 23:59 23:59 23:59 23:59 Intake Total 2400 1890 250 Output Total 690 1700 400 Balance 1710 190 -150 Weight 157 lb 157 lb Last Vital Signs Temp Pulse Resp BP Pulse Ox 99.5 F 93 H 18 138/79 100 08/18/18 10:00 08/18/18 10:00 08/18/18 10:00 08/18/18 10:00 08/18/18 09:00 Active Medications Amlodipine Besylate (Norvasc -) 10 mg PO DAILY [facility] Last Admin: 08/18/18 10:17 Dose: 10 mg Benzocaine/Menthol (Cepacol Lozenge -) 1 each MM Q2H PRN PRN Reason: SORE THROAT Last Admin: 08/18/18 08:51 Dose: 1 each Dicyclomine HCl (Bentyl -) 10 mg PO Q6HPO [facility] Last Admin: 08/18/18 06:10 Dose: Not Given Diphenhydramine HCl (Benadryl -) 25 mg PO Q6H PRN PRN Reason: FOR ITCHING Docusate Sodium (Colace -) 100 mg PO TID [facility] Last Admin: 08/18/18 06:10 Dose: Not Given Ferrous Sulfate (Feosol -) 325 mg PO DAILY [facility] Last Admin: 08/18/18 10:19 Dose: 325 mg Folic Acid (Folic Acid -) 1 mg PO DAILY [facility] Last Admin: 08/18/18 10:21 Dose: 1 mg Heparin Sodium (Porcine) (Heparin -) 5,000 unit SQ TID [facility] Last Admin: 08/18/18 06:13 Dose: 5,000 unit Lisinopril (Prinivil) 40 mg PO DAILY [facility] Last Admin: 08/18/18 10:20 Dose: 40 mg Magnesium Oxide (Mag-Ox -) 400 mg PO DAILY [facility] Last Admin: 08/18/18 10:21 Dose: 400 mg Morphine Sulfate (Morphine Sulfate) 2 mg IVPUSH Q4H PRN PRN Reason: PAIN LEVEL 6 - 10 Last Admin: 08/18/18 08:35 Dose: 2 mg Non-Formulary Medication (Metaxalone [Metaxall]) 800 mg PO TID [facility] Ondansetron HCl (Zofran Injection) 4 mg IVPUSH Q4H PRN PRN Reason: NAUSEA AND/OR VOMITING Ondansetron HCl (Zofran Injection) 4 mg IVPUSH Q6H PRN PRN Reason: NAUSEA Last Admin: 08/16/18 17:30 Dose: 4 mg Oxycodone HCl (Roxicodone -) 5 mg PO Q4H PRN PRN Reason: PAIN LEVEL 1-5 Oxycodone HCl (Roxicodone -) 10 mg PO Q4H PRN PRN Reason: PAIN 6-10; IF MORPHINE NT WRK Polyethylene Glycol (Miralax (For Daily Use) -) 17 gm PO DAILY [facility] Last Admin: 08/18/18 11:21 Dose: Not Given Pregabalin (Lyrica -) 100 mg PO BID [facility] Last Admin: 08/18/18 10:23 Dose: 100 mg Promethazine HCl (Phenergan Injection -) 12.5 mg IVPB Q6H PRN PRN Reason: NAUSEA AND/OR VOMITING GENERAL: Awake, alert, and fully oriented, NAD HEAD: Normal with no signs of trauma. EYES: sclera anicteric, conjunctiva clear. No lid lag. EARS, NOSE, THROAT: Oropharynx clear without exudates. Moist mucous membranes. NECK: (+) cervical collar LUNGS: few basilar Rhonchi, no wheeze. No accessory muscle use. HEART: Normal S1 and S2 without murmur, rub or gallop. ABDOMEN: Soft, nontender, not distended, normoactive bowel sounds, no guarding, no rebound, no masses. MUSCULOSKELETAL: No CVA tenderness. LOWER EXTREMITIES: 2+ pulses, warm, well-perfused. No calf tenderness. No peripheral edema. NEUROLOGICAL: Non-focal PSYCHIATRIC: Cooperative. Good eye contact. Appropriate mood and affect. SKIN: Warm, dry, normal turgor, no rashes or lesions noted. Laboratory Results - last 24 hr 08/17/18 08/17/18 08/17/18 22:00 22:00 22:00 WBC 16.6 H RBC 4.39 Hgb 12.7 Hct 36.4 MCV 83.1 MCH 28.9 MCHC 34.7 RDW 15.0 Plt Count 394 MPV 6.9 L Absolute Neuts (auto) 14.7 H Neutrophils % 88.9 H Lymphocytes % 6.2 L D Monocytes % 4.6 Eosinophils % 0.0 Basophils % 0.3 Nucleated RBC % 0 PT with INR 13.60 H INR 1.15 H PTT (Actin FS) 24.2 L D-Dimer 846 H Sodium Potassium Chloride Carbon Dioxide Anion Gap BUN Creatinine Creat Clearance w eGFR Random Glucose Calcium Phosphorus Magnesium Total Bilirubin AST ALT Alkaline Phosphatase Troponin I Total Protein Albumin 08/17/18 08/17/18 08/18/18 22:00 22:00 07:00 WBC 21.4 H RBC 4.62 Hgb 12.9 Hct 38.2 MCV 82.6 MCH 27.9 MCHC 33.7 RDW 14.8 Plt Count 389 MPV 7.0 L Absolute Neuts (auto) Neutrophils % Lymphocytes % Monocytes % Eosinophils % Basophils % Nucleated RBC % PT with INR INR PTT (Actin FS) D-Dimer Sodium 131 L Potassium 3.1 L Chloride 92 L Carbon Dioxide 29 Anion Gap 10 BUN 5 L Creatinine 0.7 Creat Clearance w eGFR > 60 Random Glucose 128 H Calcium 8.2 L Phosphorus Magnesium Total Bilirubin 0.2 AST 27 ALT 21 Alkaline Phosphatase 125 H Troponin I < 0.02 Total Protein 7.0 Albumin 3.3 L 08/18/18 08/18/18 07:00 07:00 WBC RBC Hgb Hct MCV MCH MCHC RDW Plt Count MPV Absolute Neuts (auto) Neutrophils % Lymphocytes % Monocytes % Eosinophils % Basophils % Nucleated RBC % PT with INR 14.50 H INR 1.23 H PTT (Actin FS) D-Dimer Sodium 133 L Potassium 3.6 Chloride 96 L Carbon Dioxide 27 Anion Gap 10 BUN 6 L Creatinine 0.7 Creat Clearance w eGFR > 60 Random Glucose 132 H Calcium 8.9 Phosphorus 2.7 Magnesium 2.4 Total Bilirubin 0.3 AST 29 ALT 22 Alkaline Phosphatase 127 H Troponin I Total Protein 7.2 Albumin 3.2 L ASSESSMENT/PLAN: Resolved acute respiratory distress (?) aspiration episode Retropharyngeal edema with airway narrowing POD #1: C3 - C6 ACDF with PEEK cage and anterior plating, corpectomies C4 / C5 HTN IBS Chronic neck pain / Cervical disk disease Anxiety / Depression Pain control Incentive Spirometry O2 as needed Trial of PO intake VTE prophylaxis Home meds Surgical floor monitoring Dr Sue
--- NOTE | 2018-08-18 12:18 | EKG ---
Test Reason : Blood Pressure : / mmHG Vent. Rate : 123 BPM Atrial Rate : 123 BPM P-R Int : 152 ms QRS Dur : 082 ms QT Int : 300 ms P-R-T Axes : 039 012 001 degrees QTc Int : 429 ms SINUS TACHYCARDIA MINIMAL VOLTAGE CRITERIA FOR LVH, MAY BE NORMAL VARIANT BORDERLINE ECG WHEN COMPARED WITH ECG OF 06-SEP-2017 19:53, NO SIGNIFICANT CHANGE WAS FOUND Confirmed by MILADYS APARICIO, BRITANY ([id number]) on 08/18/2018 12:18:16 PM Referred By: Dylan Verdugo Confirmed By:BRITANY HOOK MD
--- NOTE | 2018-08-18 12:46 | PN ---
Physical Exam: SUBJECTIVE: Patient seen and examined at bedside. pt improved w/ steroids, benadryl and famotidine. pt reports sore throat and unable to tolerate apple sauce. denies cp, SOB, pooling of saliva OBJECTIVE: Vital Signs Period Temp Pulse Resp BP Sys/Ramachandran Pulse Ox Last 24 Hr 98 F-100.4 F 93-104 12-20 131-160/75-95 99-100 GENERAL: AOX3 NAD HEAD: NCAT EYES: Pupils equal, round and reactive to light, extraocular movements intact, sclera anicteric, conjunctiva clear. No lid lag. EARS, NOSE, THROAT: Oropharynx clear without exudates. Moist mucous membranes. NECK: (+) cervical collar LUNGS: CTAB. No accessory muscle use. HEART: RRR, normal S1 and S2 without murmur, rub or gallop. ABDOMEN: Soft, NTND +BS, no guarding, no rebound, no masses. EXTREMITIES: 2+ pulses, warm, well-perfused. No calf tenderness. No peripheral edema. NEUROLOGICAL: Cranial nerves II-XII intact. strength Sensory intact. PSYCHIATRIC: Cooperative. Good eye contact. Appropriate mood and affect. SKIN: Warm, dry, normal turgor, no rashes or lesions noted. Laboratory Results - last 24 hr 08/17/18 08/17/18 08/17/18 22:00 22:00 22:00 WBC 16.6 H RBC 4.39 Hgb 12.7 Hct 36.4 MCV 83.1 MCH 28.9 MCHC 34.7 RDW 15.0 Plt Count 394 MPV 6.9 L Absolute Neuts (auto) 14.7 H Neutrophils % 88.9 H Lymphocytes % 6.2 L D Monocytes % 4.6 Eosinophils % 0.0 Basophils % 0.3 Nucleated RBC % 0 PT with INR 13.60 H INR 1.15 H PTT (Actin FS) 24.2 L D-Dimer 846 H Sodium Potassium Chloride Carbon Dioxide Anion Gap BUN Creatinine Creat Clearance w eGFR Random Glucose Calcium Phosphorus Magnesium Total Bilirubin AST ALT Alkaline Phosphatase Troponin I Total Protein Albumin 08/17/18 08/17/18 08/18/18 22:00 22:00 07:00 WBC 21.4 H RBC 4.62 Hgb 12.9 Hct 38.2 MCV 82.6 MCH 27.9 MCHC 33.7 RDW 14.8 Plt Count 389 MPV 7.0 L Absolute Neuts (auto) Neutrophils % Lymphocytes % Monocytes % Eosinophils % Basophils % Nucleated RBC % PT with INR INR PTT (Actin FS) D-Dimer Sodium 131 L Potassium 3.1 L Chloride 92 L Carbon Dioxide 29 Anion Gap 10 BUN 5 L Creatinine 0.7 Creat Clearance w eGFR > 60 Random Glucose 128 H Calcium 8.2 L Phosphorus Magnesium Total Bilirubin 0.2 AST 27 ALT 21 Alkaline Phosphatase 125 H Troponin I < 0.02 Total Protein 7.0 Albumin 3.3 L 08/18/18 08/18/18 07:00 07:00 WBC RBC Hgb Hct MCV MCH MCHC RDW Plt Count MPV Absolute Neuts (auto) Neutrophils % Lymphocytes % Monocytes % Eosinophils % Basophils % Nucleated RBC % PT with INR 14.50 H INR 1.23 H PTT (Actin FS) D-Dimer Sodium 133 L Potassium 3.6 Chloride 96 L Carbon Dioxide 27 Anion Gap 10 BUN 6 L Creatinine 0.7 Creat Clearance w eGFR > 60 Random Glucose 132 H Calcium 8.9 Phosphorus 2.7 Magnesium 2.4 Total Bilirubin 0.3 AST 29 ALT 22 Alkaline Phosphatase 127 H Troponin I Total Protein 7.2 Albumin 3.2 L Active Medications Generic Name Dose Route Start Last Admin Trade Name Freq PRN Reason Stop Dose Admin Amlodipine Besylate 10 mg 08/17/18 10:00 08/18/18 10:17 Norvasc - PO 10 mg DAILY [facility] Administration Benzocaine/Menthol 1 each 08/16/18 18:42 08/18/18 08:51 Cepacol Lozenge - MM 1 each Q2H PRN Administration SORE THROAT Dicyclomine HCl 10 mg 08/16/18 17:30 08/18/18 06:10 Bentyl - PO Not Given Q6HPO [facility] Diphenhydramine HCl 25 mg 08/16/18 16:44 Benadryl - PO Q6H PRN FOR ITCHING Docusate Sodium 100 mg 08/16/18 22:00 08/18/18 06:10 Colace - PO Not Given TID [facility] Ferrous Sulfate 325 mg 08/17/18 10:00 08/18/18 10:19 Feosol - PO 325 mg DAILY [facility] Administration Folic Acid 1 mg 08/17/18 10:00 08/18/18 10:21 Folic Acid - PO 1 mg DAILY [facility] Administration Heparin Sodium (Porcine) 5,000 unit 08/17/18 10:00 08/18/18 06:13 Heparin - SQ 5,000 unit TID [facility] Administration Lisinopril 40 mg 08/17/18 10:00 08/18/18 10:20 Prinivil PO 40 mg DAILY [facility] Administration Magnesium Oxide 400 mg 08/17/18 10:00 08/18/18 10:21 Mag-Ox - PO 400 mg DAILY [facility] Administration Morphine Sulfate 2 mg 08/16/18 16:44 08/18/18 08:35 Morphine Sulfate IVPUSH 2 mg Q4H PRN Administration PAIN LEVEL 6 - 10 Non-Formulary Medication 800 mg 08/16/18 22:00 Metaxalone [Metaxall] PO TID [facility] Ondansetron HCl 4 mg 08/16/18 13:10 Zofran Injection IVPUSH Q4H PRN NAUSEA AND/OR VOMITING Ondansetron HCl 4 mg 08/16/18 16:44 08/16/18 17:30 Zofran Injection IVPUSH 4 mg Q6H PRN Administration NAUSEA Oxycodone HCl 5 mg 08/16/18 16:44 Roxicodone - PO Q4H PRN PAIN LEVEL 1-5 Oxycodone HCl 10 mg 08/16/18 16:44 Roxicodone - PO Q4H PRN PAIN 6-10; IF MORPHINE NT WRK Polyethylene Glycol 17 gm 08/17/18 10:00 08/18/18 11:21 Miralax (For Daily Use) - PO Not Given DAILY [facility] Pregabalin 100 mg 08/18/18 09:24 08/18/18 10:23 Lyrica - PO 100 mg BID [facility] Administration Promethazine HCl 12.5 mg 08/16/18 13:10 Phenergan Injection - IVPB Q6H PRN NAUSEA AND/OR VOMITING ASSESSMENT/PLAN: Patient is a 57 year old female who was admitted for cervical surgery with Dr. Verdugo and is now POD #1. Patient had rapid response called for hypoxia and lethargy and Soft tissue neck CT revealed retropharyngeal edema with airway narrowing. Patient admitted to ICU for further monitoring and management. PULMONARY #Acute Hypoxic Respiratory failure -Secondary to retropharyngeal soft tissue edema associated with airway narrowing. Patient is POD #1 s/p cervical surgery. -s/p Benadryl and Famotidine, Medrol 125mg IVP -Continue 02 NC and maintain SPo2 >95% -Encourage Incentive Spirometer -Pain control with Morphine and Oxycodone -failed applesauce trial, will keep NPO SURGICAL #S/P C3-C6 ACDF with Peek Cage and anterior plating, Corpectomies of C4 and C5. -POD#1 -Continue pain control with Morphine and Oxycodone. 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 Anemia -Continue Ferrous Sulfate 325mg daily and Folic Acid 1mg daily PSYCH #Anxiety/Depression -Elavil 75mg HS F/E/N -hold IV fluids as patient was hypoxic and want to avoid fluid overload if there may be some edema -replete lytes prn -failed applesauce trial, will keep NPO Prophylaxis -Heparin 5000 units Sq TID for DVT -Famotidine for GI Disposition -Full code -pt is stable and ready for transfer to med/surg. We will sign off. Further care per primary team/PCP. Thank you for this consult opportunity Visit type - Emergency Visit Emergency Visit: Yes ED Registration Date: 08/16/18 Care time: The patient presented to the Emergency Department on the above date and was hospitalized for further evaluation of their emergent condition. - New Patient This patient is new to me today: Yes Date on this admission: 08/18/18 - Critical Care Critical Care patient: Yes Total Critical Care Time (in minutes): 36 Critical Care Statement: The care of this patient involved high complexity decision making to prevent further life threatening deterioration of the patient 's condition and/or to evaluate & treat vital organ system(s) failure or risk of failure.
[2018-08-18] MEDS ORDERED: PT OWN MED DRAWER 7, Y5N ONE ×2 (13:06→16:18)
--- NOTE | 2018-08-18 14:18 | PN ---
Progress Note (short form) - Note Progress Note: ANESTHESIA POSTOP 57 yo female POD #1 s/p ACDF, corpectomy Patient was transferred to ICU last night after rapid response for hypoxia Patient currently in bed, conversing normally, minimal pain. She has tolerated some po since transfer to ICU VSS, Afebrile Continue current care. Minimize opiates and other sedating medications until edema resolves.
[2018-08-18] MEDS: AMITRIPTYLINE HCL 75 MG TABLET PO SCH (15:27)
[2018-08-18] MEDS: PREGABALIN 100 MG CAPSULE PO SCH (15:27)
[2018-08-18] MEDS ORDERED: oxyCODONE HCL 5 MG TABLET PO PRN ×2 (15:28)
[2018-08-18] MEDS ORDERED: PROMETHAZINE HCL 25 MG/1 ML VIAL IVPB PRN (15:28)
[2018-08-18] MEDS ORDERED: BENZOCAINE/MENTH/CETYLPYRD CL 1 EACH LOZENGE MM PRN (15:28)
[2018-08-18] MEDS ORDERED: ONDANSETRON 4 MG/2 ML VIAL IVPUSH PRN (15:28)
[2018-08-18] MEDS ORDERED: diphenhydrAMINE HCL 25 MG CAPSULE (FP) PO PRN (15:28)
[2018-08-18] MEDS: METAXALONE 800 MG PO SCH ×2 (15:30→15:31)
--- NOTE | 2018-08-18 15:33 | CONSULT ---
Admitting History and Physical - Primary Care Physician PCP: Macarena Davison - Admission History of Present Illness: Patient is 57 year old female history of HTN, diverticulosis, POD#1 s/p cervical spine surgery. s/p C3-6 anterior cervical discectyomy and fusion Pt reports eating dinner, chicken, peas and potatoes, but that it was very painful. She couldnt get the food down or bring it back up. She does not recall becoming lethargic or foaming from her mouth as noted during RR. Patient was noted to be hypoxic, lethargic, and foaming at the mouth. Patient had rapid response called for hypoxia and lethargy and Soft tissue neck CT revealed retropharyngeal edema with airway narrowing. Patient was admitted to ICU for further monitoring and management and is now on . Pt is verbal, a good historian, wearing a hard neck brace. 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: Migraine (chronic), Other (trigeminal neuralgia) Cardiovascular: Yes: HTN Gastrointestinal: Yes: Diverticulitis (diverticulosis) - Past Surgical History Past Surgical History: Yes: Hysterectomy (BSO for endometriosis), Tonsillectomy Additional Past Surgical History: foot surgery - Smoking History Smoking history: Never smoked Have you smoked in the past 12 months: No Aproximately how many cigarettes per day: 0 If you are a former smoker, when did you quit?: 25 years ago - Alcohol/Substance Use Hx Alcohol Use: No - Social History ADL: Independent History of Recent Travel: No History - Admission Reason For Visit: CERVICAL SPONDYLOSIS - Diagnostics X-ray: Report Reviewed - General Mental Status: Alert and Oriented, Awake and Alert, Able to Follow Commands Attention: Intact Ability to Follow Directions: Excellent Head/Neck Control: Fair - Hearing Hearing: Normal Speech Evaluation - Communication Primary Language: PORTUGUESE - Speech Production Able to Make Needs Known: Yes: WNL Intelligibility: Yes: WNL - Speech Characteristics Voice Loudness: Normal Voice Pitch: Yes: Normal Voice Phonatory-based Quality: Yes: Normal Speech Clarity: < 100% Nasal Resonance: Hypernasal Articulation: Yes: Precise Rate of Speech: Intact - Language/Auditory Comprehension Follows: Yes: 1 Stage Simple Commands - Language/Verbal Expression Able to Respond to Simple Queries: Yes: WNL Able to Communicate Wants and Needs: Yes: WNL Functional Communication Status: Yes: WNL - 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 Memory: Yes: WNL Short Term Memory: Yes: WNL - Swallow Evaluation/Bedside Assessment Current Nutritional Intake: NPO Oral Secretions: Yes: WFL Dentition: Yes: Edentulous (pt has dentures) Facial Symmetry at Rest: Symmetrical Facial Symmetry on Retraction: Symmetrical Against Resistance Opening: Normal Against Resistance Closing: Normal Pucker Lips: Normal Smile: Normal Lingual Movement: Normal, Symmetric Lingual Speed of Movement: Normal Lingual Movement Strgth Against Opposition: Normal Lingual Movement Characteristics: Normal Timing of Swallow: Delayed Odynophagia: Pharyngeal Coughing/Throat Clear: Yes (sip of water) Recommendations - Speech Evaluation, Impression/Plan Impression: Dysphagia with pharyngeal odynophagia/swelling s/p sx. Suspeect aspiration on water, possibly reduced laryngeal elevation, and relaxation of UES resulting in stasis in pharynx and risk of aspiration/blocking airway. - Dysphagia Impressions/Plan Swallowing Skills: Impaired Dysphagia Impressions: Ongoing Evaluation *Silent aspiration: cannot be R/O at bedside Recommendations: Modified Barium Swallow - Recommendations Diet Consistency: NPO, Other (NPO including medication) Supplement: IVF if notcontraindicated
[2018-08-18] MEDS ORDERED: ENALAPRILAT DIHYDRATE 1.25 MG/1 ML VIAL IVPB PRN (16:23)
[2018-08-18] MEDS: D5-1/2NS+20 MEQ KCL - 20 MEQ/1,000 ML INFUS.BAG IV SCH (16:55)
[2018-08-18] MEDS ORDERED: DICYCLOMINE HCL 10 MG CAPSULE PO SCH (18:00)
[2018-08-18] MEDS: DEXAMETHASONE SOD PHOSPHATE 4 MG/1 ML VIAL IVPUSH SCH (18:38)
[2018-08-18] MEDS ORDERED: ACETAMINOPHEN 325 MG TABLET (FP) PO PRN (21:21)
[2018-08-18] MEDS ORDERED: ACETAMINOPHEN 325 MG TABLET (FP) ONE (21:21)
[2018-08-18] MEDS ORDERED: ACETAMINOPHEN 650 MG SUPP.RECT PR PRN (21:39)
[2018-08-18] MEDS ORDERED: DOCUSATE SODIUM 100 MG CAPSULE (FP) PO SCH (22:00)
[2018-08-19] MEDS: DEXAMETHASONE SOD PHOSPHATE 4 MG/1 ML VIAL IVPUSH SCH ×3 (01:21→18:17)
[2018-08-19] MEDS: D5-1/2NS+20 MEQ KCL - 20 MEQ/1,000 ML INFUS.BAG IV SCH (05:36)
[2018-08-19] MEDS: MORPHINE SULFATE 2 MG/ML VIAL IVPUSH PRN (05:39)
[2018-08-19] MEDS: HEPARIN NA (PORCINE) 5,000 UNITS/ML 1ML VIAL SQ SCH ×3 (05:47→21:09)
[2018-08-19 08:20] LABS: BASO % 0.2 % (0-2.0); HEMATOCRIT 34.9 % (32.4-45.2); HEMOGLOBIN 11.9 GM/dL (10.7-15.3); LYMPH % 4.1 % (8-40); MCH 28.3 pg (25.7-33.7); MCHC 34.1 g/dl (32.0-36.0); MEAN PLT VOLUME 7.4 fl (7.5-11.1); MONO % 3.2 % (3.8-10.2); NEUT % 92.5 % (42.8-82.8); PLATELET COUNT 387 K/MM3 (134-434); RBC 4.21 M/mm3 (3.60-5.2); RDW 14.8 % (11.6-15.6)
[2018-08-19] MEDS ORDERED: ACETAMINOPHEN 1000 MG/100 ML VIAL (NON FORMULARY) IVPB PRN (08:24)
--- NOTE | 2018-08-19 08:24 | PN ---
Progress Note (short form) - Note Progress Note: Vital Signs Period Temp Pulse Resp BP Sys/Ramachandran Pulse Ox Last 24 Hr 98.5 F-100.4 F 88-102 7-20 117-148/68-91 97-100 still spitting out her spit-can not swallow S1S2 RRR Lungs cta abd soft no edema aaox3, no focal deficit IMP C3-6 ACDF POD#3 airway compromise due to soft tissue edema dysphagia medications reviewed npo until barium swallow iv meds Problem List - Problems (1) H/O cervical spine surgery Code(s): Z98.890 - OTHER SPECIFIED POSTPROCEDURAL STATES (2) Arm paresthesia, left Code(s): R20.2 - PARESTHESIA OF SKIN (3) Diverticulosis Code(s): K57.90 - DVRTCLOS OF INTEST, PART UNSP, W/O PERF OR ABSCESS W/O BLEED Qualifiers: Diverticulosis site: diverticulosis of large intestine Diverticulosis bleeding: diverticulosis without bleeding Qualified Code(s): K57.30 - Diverticulosis of large intestine without perforation or abscess without bleeding (4) Headache Code(s): R51 - HEADACHE Qualifiers: Headache type: unspecified Headache chronicity pattern: unspecified pattern Intractability: not intractable Qualified Code(s): R51 - Headache
[2018-08-19 08:41] LABS: ALBUMIN 2.8 g/dl (3.4-5.0); ALK PHOS 114 U/L (45-117); ANION GAP 10 MMOL/L (8-16); BILIRUBIN,TOTAL 0.2 mg/dL (0.2-1); BLOOD UREA NITROGEN 13 mg/dL (7-18); CALCIUM 8.8 mg/dL (8.5-10.1); CHLORIDE 100 mmol/L (98-107); CO2 25 mmol/L (21-32); CREATININE 0.6 mg/dL (0.55-1.3); GLUCOSE,RANDOM 127 mg/dL (74-106); POTASSIUM 3.8 mmol/L (3.5-5.1); SGOT/AST 24 U/L (15-37); SGPT/ALT 18 U/L (13-61); SODIUM 135 mmol/L (136-145); TOT PROT 6.8 g/dl (6.4-8.2)
--- NOTE | 2018-08-19 09:32 | PN ---
Progress Note (short form) - Note Progress Note: POD 3 Pt seen and examined. Has been transferred back to regular floor since last night. States she was feeling better yesterday afternoon, however her throat pain/discomfort and difficulty swallowing returned early this AM. Has been NPO since yesterday as she choked on water. Denies cp/sob, n/v/d, calf pain/edema, motor/sensory deficits. Reports episode of fever/chills and severe sweats yesterday, RN corroborates temp of 100.4 which was relieved with Tylenol suppository. Vital Signs Temp 98.6 F 08/19/18 06:00 Pulse 88 08/19/18 06:00 Resp 20 08/19/18 06:00 BP 148/85 08/19/18 06:00 Pulse Ox 97 08/18/18 21:00 Intake & Output 08/18/18 08/18/18 08/19/18 11:59 23:59 11:59 Intake Total 250 150 900 Output Total 400 500 Balance -150 -350 900 Intake: IV 150 900 D5-1/2NS+20 MEQ KCL - 20 150 900 meq In 1,000 ml @ 75 mls/ hr IV ASDIR DANNIELLE Rx#: [id number] IVPB 250 Output: Urine 400 500 Mahoney 400 500 Other: Voiding Method Bedpan Toilet # Unmeasured Voids Void 1 1 CBC, BMP 08/19/18 06:50 08/19/18 06:50 Gen: awake, alert, nad, speaking in full sentences Neck: [place] J in place, dressing c/d/i, no surrounding hematoma, PAT drain site dressing c/d/i. Resp: unlabored, mild expiratory wheezing noted, + rhonchi upper lung bases CV: rrr, s1s2 Neuro: Able to raise b/l ue's to 180degrees without difficulty, no drift noted. 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 L Biceps/triceps 5/5, R biceps/triceps 5/5. Wrist flexion/extension 5/5 b/l, Sensation improved in LUE WBC increasing-steroids? Febrile to 100.4 overnight, resolved with Tylenol suppository. Continues to have discomfort with swallowing. Continue Decadron as ordered Incentive spirometry strongly encouraged OOB with assistance [place] J collar to remain in place for 23/24 hours (may remove while eating) VS per routine Neurovascular checks per routine DVT prophylaxis with Heparin 5000units q8hrs, b/l scds Pain control with IV analgesia: ofirmev 1g q6hrs, morphine 2mg q4hrs prn Remainder of care per medical team above discussed with attending Dr Verdugo
[2018-08-19] MEDS ORDERED: amLODIPine BESYLATE 5 MG TABLET (FP) PO SCH (10:00)
[2018-08-19] MEDS ORDERED: POLYETHYLENE GLYCOL 3350 119 GM BTL PO SCH (10:00)
[2018-08-19] MEDS ORDERED: MAGNESIUM OXIDE 400 MG TABLET (FP) PO SCH (10:00)
[2018-08-19] MEDS ORDERED: FERROUS SO4 325 MG TABLET (FP) PO SCH (10:00)
[2018-08-19] MEDS ORDERED: LISINOPRIL 20 MG TABLET (FP) PO SCH (10:00)
[2018-08-19] MEDS ORDERED: FOLIC ACID 1 MG TABLET (FP) PO SCH (10:00)
[2018-08-19 11:59] LABS: ACANTHOCYTES 0; ANISOCYTOSIS 0; HELMET CELLS 0; HOWELL-JOLLY BODIES 0; MACROCYTOSIS 0; OVALOCYTE 0; PLATELET ESTIMATE NORMAL; ROULEAU 0; SICKELED CELLS 0; TARGET CELLS 0; TEAR DROP CELLS 0; TOXIC GRANULATION 0
[2018-08-19] MEDS ORDERED: ACETAMINOPHEN/CAFFEINE/BUTALBITAL 1 TAB PO PRN (16:45)
[2018-08-19] MEDS ORDERED: oxyCODONE HCL 5 MG TABLET PO PRN (17:25)
[2018-08-19] MEDS: METAXALONE 800 MG PO SCH (17:29)
[2018-08-20] MEDS: DEXAMETHASONE SOD PHOSPHATE 4 MG/1 ML VIAL IVPUSH SCH (01:24)
[2018-08-20] MEDS: HEPARIN NA (PORCINE) 5,000 UNITS/ML 1ML VIAL SQ SCH (06:05)
--- NOTE | 2018-08-20 08:20 | DS ---
Physical Examination Vital Signs: Vital Signs Temperature 98.3 F 08/20/18 07:10 Pulse Rate 95 H 08/20/18 07:10 Respiratory Rate 20 08/20/18 07:10 Blood Pressure 141/88 08/20/18 07:10 O2 Sat by Pulse Oximetry (%) 97 08/19/18 21:00 Constitutional: Yes: No Distress, Calm Eyes: Yes: Conjunctiva Clear HENT: Yes: Other (in cervical collar) Neck: Yes: Other Cardiovascular: Yes: Regular Rate and Rhythm Respiratory: Yes: Regular, CTA Bilaterally Gastrointestinal: Yes: Normal Bowel Sounds, Soft Musculoskeletal: Yes: WNL Extremities: Yes: WNL Edema: No Peripheral Pulses WNL: Yes Neurological: Yes: WNL Labs: CBC, BMP 08/19/18 06:50 08/19/18 06:50 Discharge Summary Reason For Visit: CERVICAL SPONDYLOSIS Current Active Problems H/O cervical spine surgery (Acute) Hospital Course: Underwent scheduled/elective C3-6 anterior cervical discectomy and fusion, post op was complicated with transient airway compromise due to soft tissue edema, improved with oxygen and iv steroids. Has had dysphagia due to edema also , swallow evaluation recommended soft/pureed diet. She is medically stable tolerating po medication and pureed diet. Stable to ma home from medical standpoint. - Instructions Diet, Activity, Other Instructions: Post Operative Instructions Physical Activity Resume your normal everyday activity as tolerated. No heavy lifting or exercise until seen by your surgeon. You may walk unlimited amounts and climb stairs. You may resume driving the car when you feel safe and comfortable behind the wheel and you are no longer wearing your brace. Do not operate a vehicle while taking narcotic medication. Brace If you had back surgery, wear TLSO Brace whenever out of bed. May remove to sleep and shower. If you had neck surgery, wear surgical collar 23 hr/day. Remove to shower only. Wound Care Keep your incision clean, dry and covered at all times. Apply an occlusive dressing (Saran wrap or Tegaderm) when showering to avoid getting your incision wet. Do not submerge incision or apply ointments or creams. The deuce will be removed in the office in 10-14 days post-op. Diet There are no dietary restrictions. Eat healthy, high-fiber foods. Drink 6-8 glasses of liquid each day. This will assist in keeping your bowels regular. Pain Management You may take Tylenol or acetaminophen. Any pain prescription medication ordered should be taken as prescribed for moderate to severe pain. Call Dr Cavazos for any of the following: Severe pain not relieved by medication Fever of 101 or higher Excessive bleeding or drainage on dressing Inability to urinate Any chest pain or shortness of breath, seek Emergency Care. Call the office to confirm a post-operative appointment for 2-3 weeks post-op Dylan Verdugo MD [facility] [address] [place] [address] Disposition: HOME - Home Medications Comprehensive Discharge Medication List: Ambulatory Orders Lisinopril [Prinivil -] 40 mg PO DAILY #0 tablet 07/29/13 Amlodipine Besylate [Norvasc -] 10 mg PO DAILY 11/15/13 Polyethylene Glycol 3350 [Miralax 119 gm Btl -] 17 gm PO DAILY 11/10/17 Butalb/Acetaminophen/Caffeine [Fioricet 50-300-40 mg Capsule] 1 each PO ASDIR L.acidoph,Paracasei, B.lactis [Probiotic] 1 each PO DAILY 08/15/18 Magnesium Oxide [Magnesium] 500 mg PO DAILY 08/15/18 Metaxalone [Metaxall] 800 mg PO TID 08/15/18 Vit B12/Intrinsic Fact/Folate [Intrinsi M49-Rjcrfp Tablet] 1,000 mg IM MONTHLY 08/15/18 Vit D3/Folic Acid/B2/B6/B12 [Folgard Tablet] 1,000 mg PO DAILY 08/15/18 Docusate Sodium [Colace -] 100 mg PO TID capsule 08/17/18 Pregabalin [Lyrica -] 100 mg PO BID #60 capsule MDD 2 08/20/18 oxyCODONE HCL [Roxicodone -] 5 mg PO Q4H PRN #30 tablet MDD 6 08/20/18
[2018-08-20] MEDS ORDERED: LISINOPRIL 20 MG TABLET (FP) PO SCH (10:00)
[2018-08-20] MEDS ORDERED: amLODIPine BESYLATE 10 MG TABLET (FP) PO SCH (10:00)
[2018-08-20 11:09] VITALS: BP 157/105; PULSE 96; TEMP 98.6
== END 2018-08-20 12:01 | disposition home or self-care (01) | DRG 471 ==
LOC: JSAMEDAYSX 09:28 → EDSTATUS 14:00 → J8W 18:24 → JICU 08-18 01:24 → J8W 08-18 15:26
PROVIDERS: ADMIT Internal Medicine; ATTEND Internal Medicine
PROC: 0RG20A0 Fusion of 2 or more Cervical Vertebral Joints with Interbody Fusion Device, Anterior Approach, Anterior Column, Open Approach (ICD-10-PCS; principal; 2018-08-16 11:00)
DX: M50.11 Cervical disc disorder with radiculopathy, high cervical region (principal); J96.01 Acute respiratory failure with hypoxia; J95.89 Other postprocedural complications and disorders of respiratory system, not elsewhere classified; M50.122 Cervical disc disorder at C5-C6 level with radiculopathy; M48.02 Spinal stenosis, cervical region; R51 Headache; K57.30 Diverticulosis of large intestine without perforation or abscess without bleeding; G43.909 Migraine, unspecified, not intractable, without status migrainosus; G50.0 Trigeminal neuralgia; I10 Essential (primary) hypertension; M54.9 Dorsalgia, unspecified; J45.909 Unspecified asthma, uncomplicated; K58.9 Irritable bowel syndrome, unspecified; D50.9 Iron deficiency anemia, unspecified; F41.8 Other specified anxiety disorders; E87.6 Hypokalemia
CPT/HCPCS: 36415; 70490-TC; 71045-TC-FY; 72125-TC; 74230-TC-FY; 76000-TC-FY; 80048; 80053; 81003; 81015; 83735; 84100; 84484; 85025; 85027; 85379; 85610; 85730; 86900; 92611-GN; 93005; 93010; 94010; 94760; 96361; 96374; 96375; 97116-GP; 97161-GP; 99282-25; J0131; J1644; J7030

== ENCOUNTER 2018-08-30 16:30 | Emergency (ER) | payer OTHER ==
[2018-08-30 16:35] VITALS: TEMP 98.7; BMI 29.2
--- NOTE | 2018-08-30 17:43 | PDOC ---
History of Present Illness - History of Present Illness Initial Comments: 08/30/18 19:01 Garcia 57 YOF with h/o cervical spondylosis with radiculopathy s/p C3-6 anterior cervical discectomy and fusion (done by Dr. Cavazos, 08/16/18) , asthma , HTN, Chronic neck and back pain, and migraines (on Fioricet and botox injections) who presents to the emergency department for evaluation of severe left sided neck pain, described as burning pain from shoulder and lateral neck, worse with movement.. The patient reports running out of her prescription for oxycodone 5-10mg 4x a day yesterday evening. She reports associated symptoms of diffuse headache, photosensitivity, and nausea without vomiting, that feels typical of her migraines. Of note, patient had C-collar in place since surgery. No new trauma or signs of infection. The patient denies chest pain, shortness of breath, fevers, and chills. Allergies: shellfish derived, aspirin Social History: No reported alcohol, cigarette, or drug use. Surgical History: Tonsillectomy, hysterectomy , C3-6 anterior cervical discectomy and fusion PCP: Dr. Macarena Davison <Kenyon Small - Last Filed: 08/30/18 19:01> - General History Source: Patient Exam Limitations: No Limitations <Cinthya Martinez - Last Filed: 08/30/18 19:26> - General Chief Complaint: Pain Stated Complaint: SENT BY PCP Time Seen by Provider: 08/30/18 16:57 Past History <Kenyon Small - Last Filed: 08/30/18 19:01> - Past Medical History Anemia: Yes Asthma: Yes Cardiac Disorders: Yes (HEART MURMUR) COPD: No GI Disorders: Yes (,ibs, DIVERTICULOSIS) HTN: Yes - Surgical History Neurologic Surgery: No Orthopedic Surgery: Yes (FOOT SURGERY AT 10 YEARS OLD,TONSILLECTOMY) - Immunization History Immunization Up to Date: Yes - Suicide/Smoking/Psychosocial Hx Smoking Status: No Smoking History: Never smoked Have you smoked in the past 12 months: No Number of Cigarettes Smoked Daily: 0 If you are a former smoker, when did you quit?: 25 years ago Hx Alcohol Use: No Drug/Substance Use Hx: No Substance Use Type: None Hx Substance Use Treatment: No <Cinthya Martinez - Last Filed: 08/30/18 19:26> - Past Medical History Allergies/Adverse Reactions: Allergies Allergy/AdvReac Type Severity Reaction Status Date / Time shellfish derived Allergy Difficulty Verified 08/30/18 16:35 Breathing aspirin AdvReac Nausea Verified 08/30/18 16:35 Home Medications: Ambulatory Orders Lisinopril [Prinivil -] 40 mg PO DAILY #0 tablet 07/29/13 Amlodipine Besylate [Norvasc -] 10 mg PO DAILY 11/15/13 Polyethylene Glycol 3350 [Miralax 119 gm Btl -] 17 gm PO DAILY 11/10/17 Butalb/Acetaminophen/Caffeine [Fioricet 50-300-40 mg Capsule] 1 each PO ASDIR L.acidoph,Paracasei, B.lactis [Probiotic] 1 each PO DAILY 08/15/18 Magnesium Oxide [Magnesium] 500 mg PO DAILY 08/15/18 Metaxalone [Metaxall] 800 mg PO TID 08/15/18 Vit B12/Intrinsic Fact/Folate [Intrinsi Y35-Ejhnew Tablet] 1,000 mg IM MONTHLY 08/15/18 Vit D3/Folic Acid/B2/B6/B12 [Folgard Tablet] 1,000 mg PO DAILY 08/15/18 Docusate Sodium [Colace -] 100 mg PO TID capsule 08/17/18 Pregabalin [Lyrica -] 100 mg PO BID #60 capsule MDD 2 08/20/18 oxyCODONE HCL [Roxicodone -] 5 mg PO Q4H PRN #30 tablet MDD 6 08/20/18 Cyclobenzaprine HCl [Flexeril -] 10 mg PO TID PRN #12 tablet 08/30/18 Oxycodone HCl 10 mg PO QID PRN #12 tablet MDD 4 08/30/18 Review of Systems - Review of Systems Able to Perform ROS?: Yes Comments:: GENERAL/CONSTITUTIONAL: No fever or chills. No weakness. no sweats. HEAD, EYES, EARS, NOSE AND THROAT: +photosensitivity. No ear pain or discharge. No difficulty swallowing. No congestion. CARDIOVASCULAR: No chest pain or palpitations, syncope or edema. RESPIRATORY: No SOB, cough, wheezing, or hemoptysis. GASTROINTESTINAL: +nausea. No vomiting. No diarrhea or constipation. No bloody stools. GENITOURINARY: No urinary sx. MUSCULOSKELETAL: No joint or muscle swelling or pain. +neck pain. SKIN: No rash or changes in skin color or lesions. +surgical scar. NEUROLOGIC: +headache, No vertigo, loss of consciousness, or change in strength/ sensation. No gait instability. HEMATOLOGIC/LYMPHATIC: No anemia, easy bruising/bleeding, or history of blood clots. ALLERGIC/IMMUNOLOGIC: No allergies All other systems reviewed and negative, or as documented in HPI. <Kenyon Small - Last Filed: 08/30/18 19:01> *Physical Exam - Vital Signs Last Vital Signs Temp Pulse Resp BP Pulse Ox 98.7 F 140 H 18 139/91 98 08/30/18 16:31 08/30/18 16:31 08/30/18 16:31 08/30/18 16:31 08/30/18 16:31 - Physical Exam Comments: General: Well appearing, awake and alert, NAD. HEENT: NCAT, PERRL, EOMI, clear conjunctiva, anicteric, moist mucous membranes , clear oropharynx, no oral lesions. Neck: (+)Anterior horizontal surgical scar, clean dry and intact. C-collar in place. Left sided perivertebral and cervical tenderness and full ROM. Resp: CTAB, normal and even respirations, no respiratory distress CVS: RRR, no murmurs, 2+ peripheral pulses throughout, no peripheral edema Abdomen: soft, NTND, no peritoneal signs. Back: nontender, normal inspection and ROM MSK: no edema, EMMANUEL x4, ROM intact. No clubbing or cyanosis. normal bulk and tone. 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 Alert, oriented to person time and place. CN II-XII grossly intact. Strength prox and distally 5/5 throughout. Sensation grossly intact to light touch. EMMANUEL x4. Speech clear. <AndreasueKenyon - Last Filed: 08/30/18 19:01> - Vital Signs Last Vital Signs Temp Pulse Resp BP Pulse Ox 98.7 F 140 H 18 139/91 98 08/30/18 16:31 08/30/18 16:31 08/30/18 16:31 08/30/18 16:31 08/30/18 16:31 <MartinezCinthya Michellebhargavialisa - Last Filed: 08/30/18 19:26> ED Treatment Course - Medications Given in the ED: ED Medications Discontinued Medications Generic Name Dose Route Start Last Admin Trade Name Cindy PRN Reason Stop Dose Admin Acetaminophen 1,000 mg 08/30/18 18:18 08/30/18 18:51 Ofirmev Injection - IVPB 08/30/18 18:19 1,000 mg ONCE ONE Administration Metoclopramide HCl 10 mg 08/30/18 18:18 08/30/18 19:00 Reglan Injection - IVPUSH 08/30/18 18:19 10 mg ONCE ONE Administration Oxycodone HCl 10 mg 08/30/18 18:19 08/30/18 18:53 Roxicodone - PO 08/30/18 18:20 10 mg ONCE ONE Administration Sodium Chloride 1,000 ml 08/30/18 18:19 08/30/18 18:52 Normal Saline - IV 08/30/18 18:20 1,000 ml ONCE ONE Administration <Kenyon Small - Last Filed: 08/30/18 19:01> Medical Decision Making - Medical Decision Making 08/30/18 19:03 Garcia 57 YOF with h/o cervical spondylosis with radiculopathy s/p C3-6 anterior cervical discectomy and fusion (done by Dr. Cavazos, 08/16/18) , asthma , HTN, Chronic neck and back pain, and migraines (on Fioricet and botox injections) who presents to the emergency department for evaluation of severe left sided neck pain, described as burning pain from shoulder and lateral neck, worse with movement. Vital Signs Temp Pulse Resp BP Pulse Ox 98.7 F 83 16 118/77 100 08/30/18 16:31 08/30/18 19:09 08/30/18 19:09 08/30/18 19:09 08/30/18 19:09 vitals with initial tachy likely from pain. since resolved SPENCER controlled with IV reglan, tylenol and fluids. no neuro deficits, no s/s infection, defer imaging at this time. migraine type headache which she gets are controlled, doubt ICH or CVA. post surgical neck and shoulder pain resolving with oxycodone, which she ran out. spoke with Dr. Cavazos [facility] [place], keep collar and can follow up outpatient with pain regimen also called PMD solution lead Dr. Kay, agree with plan, can call for appt tomorrow for close followup return precautions advised. rx oxycodone PRN severe pain and flexeril for muscle spasms PRN. pt amenable to plan, made aware of impression and plan, agreeable. 08/30/18 19:24 <Cinthya Martinez - Last Filed: 08/30/18 19:26> *DC/Admit/Observation/Transfer - Attestations Scribe Attestion: Documentation prepared by Kenyon Small, acting as medical practice manager for Cinthya Martinez MD. <Kenyon Small - Last Filed: 08/30/18 19:01> - Discharge Dispostion Decision to Admit order: No <Cinthya Martinez - Last Filed: 08/30/18 19:26> Diagnosis at time of Disposition: Headache, Cervical spondylosis - Discharge Dispostion Condition at time of disposition: Good - Prescriptions Prescriptions: Cyclobenzaprine HCl [Flexeril -] 10 mg PO TID PRN #12 tablet PRN Reason: Muscle Spasms Oxycodone HCl 10 mg PO QID PRN #12 tablet MDD 4 PRN Reason: Pain Level 7 - 10 - Referrals Referrals: Lance Garg MD [Primary Care Provider] - Macarena Davison MD [Staff Physician] - Dylan Verdugo MD, FAANS [Staff Physician] - - Patient Instructions Printed Discharge Instructions: Neck Pain (Alternative Therapy), DI for Migraine, DI for Cervical Radiculopathy, DI for Headache Additional Instructions: you were treated in the department for your neck pain post surgery you can take oxycodone 10 mg every 6 hours as needed for severe pain, flexeril for muscle relaxant. follow up with Dr. Cavazos and your primary doctor for reevaluation of you post surgery. return if worsening symptoms including fevers, weakness, loss of sensation, gait trouble, seizure, worse neck pain, respiratory distress, confusion or other concerns such as stroke or infection. - Post Discharge Activity Forms/Work/School Notes: Back to Work
[2018-08-30] MEDS ORDERED: ACETAMINOPHEN 1000 MG/100 ML VIAL (NON FORMULARY) IVPB ONE (18:18)
[2018-08-30] MEDS ORDERED: METOCLOPRAMIDE HCL INJECTION 10 MG/2 ML VIAL IVPUSH ONE (18:18)
[2018-08-30] MEDS ORDERED: oxyCODONE HCL 5 MG TABLET PO ONE (18:19)
[2018-08-30] MEDS ORDERED: SODIUM CHLORIDE 0.9% 500 ML INFUS.BAG IV ONE (18:19)
[2018-08-30] MEDS ORDERED: METOCLOPRAMIDE HCL INJECTION 10 MG/2 ML VIAL ONE (18:35)
[2018-08-30] MEDS ORDERED: ACETAMINOPHEN INJECTION 100 ML IVPB ONE (18:35)
[2018-08-30] MEDS ORDERED: oxyCODONE HCL 5 MG TABLET ONE (18:35)
[2018-08-30 19:11] VITALS: BP 118/77; PULSE 83
--- NOTE | 2018-08-30 19:21 | PDOC ---
*Physical Exam - Vital Signs Last Vital Signs Temp Pulse Resp BP Pulse Ox 98.7 F 83 16 118/77 100 08/30/18 16:31 08/30/18 19:09 08/30/18 19:09 08/30/18 19:09 08/30/18 19:09 ED Treatment Course - Medications Given in the ED: ED Medications Discontinued Medications Generic Name Dose Route Start Last Admin Trade Name Freq PRN Reason Stop Dose Admin Acetaminophen 1,000 mg 08/30/18 18:18 08/30/18 18:51 Ofirmev Injection - IVPB 08/30/18 18:19 1,000 mg ONCE ONE Administration Metoclopramide HCl 10 mg 08/30/18 18:18 08/30/18 19:00 Reglan Injection - IVPUSH 08/30/18 18:19 10 mg ONCE ONE Administration Oxycodone HCl 10 mg 08/30/18 18:19 08/30/18 18:53 Roxicodone - PO 08/30/18 18:20 10 mg ONCE ONE Administration Sodium Chloride 1,000 ml 08/30/18 18:19 08/30/18 18:52 Normal Saline - IV 08/30/18 18:20 1,000 ml ONCE ONE Administration Medical Decision Making - Medical Decision Making 08/30/18 19:18 Care received at 1900 Briefly, pt presents for post op pain after running out of meds At transfer of care, pt pending rpt vitals as initial HR 140s presumably due to pain Rpt vitals wnl Pt feels well, pain well controlled. Pt well appearing Stable for DC home, to f/u with PMD tomorrow and Dr. Yee within a few days *DC/Admit/Observation/Transfer Diagnosis at time of Disposition: Headache, Cervical spondylosis - Discharge Dispostion Condition at time of disposition: Good - Prescriptions Prescriptions: Cyclobenzaprine HCl [Flexeril -] 10 mg PO TID PRN #12 tablet PRN Reason: Muscle Spasms Oxycodone HCl 10 mg PO QID PRN #12 tablet MDD 4 PRN Reason: Pain Level 7 - 10 - Referrals Referrals: Dylan Verdugo MD, FAANS [Staff Physician] - Lance Garg MD [Primary Care Provider] - Macarena Davison MD [Staff Physician] - - Patient Instructions Printed Discharge Instructions: Neck Pain (Alternative Therapy), DI for Migraine, DI for Cervical Radiculopathy, DI for Headache Additional Instructions: you were treated in the department for your neck pain post surgery you can take oxycodone 10 mg every 6 hours as needed for severe pain, flexeril for muscle relaxant. follow up with Dr. Cavazos and your primary doctor for reevaluation of you post surgery. return if worsening symptoms including fevers, weakness, loss of sensation, gait trouble, seizure, worse neck pain, respiratory distress, confusion or other concerns such as stroke or infection. - Post Discharge Activity Forms/Work/School Notes: Back to Work
== END 2018-08-30 19:52 | disposition home or self-care (01) ==
LOC: JER 16:30
PROC: 3E033NZ Introduction of Analgesics, Hypnotics, Sedatives into Peripheral Vein, Percutaneous Approach (ICD-10-PCS; principal; 2018-08-30)
PROC: 3E033GC Introduction of Other Therapeutic Substance into Peripheral Vein, Percutaneous Approach (ICD-10-PCS; 2018-08-30)
DX: R51 Headache (principal); M54.12 Radiculopathy, cervical region; Z98.1 Arthrodesis status; G89.18 Other acute postprocedural pain; I10 Essential (primary) hypertension; J45.909 Unspecified asthma, uncomplicated; G43.909 Migraine, unspecified, not intractable, without status migrainosus
CPT/HCPCS: 96374; 96375; 99281-25; J0131

== ENCOUNTER 2019-12-07 21:12 | Emergency (ER) | payer OTHER ==
[2019-12-07 21:25] VITALS: BP 150/86; PULSE 79; TEMP 97.7; BMI 33.2
--- NOTE | 2019-12-07 21:27 | PDOC ---
History of Present Illness - General Chief Complaint: Pain Stated Complaint: PAIN Time Seen by Provider: 12/07/19 21:26 History Source: Patient - History of Present Illness Initial Comments: 12/07/19 21:56 Chief complaint: Urinary burning Patient is 59-year-old female with a history of remote asthma, hypertension, diverticulosis, hysterectomy who states that tonight she had a little vaginal itching which is not unusual for her due to the hysterectomy and hormones being affected. She also noted she had burning when she urinated just prior to taking a bath. Patient denies any vaginal discharge, she is complaining of burning on urination. GENERAL/CONSTITUTIONAL: No fever, weakness. dizziness HEAD, EYES, EARS, NOSE AND THROAT: No change in vision. No ear pain or discharge. No sore throat. CARDIOVASCULAR: No chest pain RESPIRATORY: No shortness of breath or cough GASTROINTESTINAL: No pain, nausea, vomiting, diarrhea or constipation GENITOURINARY: +dysuria MUSCULOSKELETAL: No neck or back pain SKIN: No rash NEUROLOGIC: No headache, vertigo, loss of consciousness, or loss of sensation. GENERAL: The patient is awake, alert, and fully oriented, in no acute distress. HEAD: Normal with no signs of trauma. EYES: Pupils equal, round and reactive to light, sclera anicteric, conjunctiva clear. ENT: pharynx: no erythema, no exudate, uvula midline NECK: supple CHEST: clear, nontender, rr ABD: soft, nontender BACK: no tenderness or signs of injury EXTREMITIES: Normal range of motion, no edema. NEUROLOGICAL: Normal speech, normal gait. SKIN: Warm, Dry Past History - Past Medical History Allergies/Adverse Reactions: Allergies Allergy/AdvReac Type Severity Reaction Status Date / Time shellfish derived Allergy Difficulty Verified 12/07/19 21:25 Breathing aspirin AdvReac Nausea Verified 12/07/19 21:25 Home Medications: Ambulatory Orders Lisinopril [Prinivil -] 40 mg PO DAILY #0 tablet 07/29/13 Amlodipine Besylate [Norvasc -] 10 mg PO DAILY 11/15/13 Polyethylene Glycol 3350 [Miralax 119 gm Btl -] 17 gm PO DAILY 11/10/17 Butalb/Acetaminophen/Caffeine [Fioricet 50-300-40 mg Capsule] 1 each PO ASDIR L.acidoph,Paracasei, B.lactis [Probiotic] 1 each PO DAILY 08/15/18 Magnesium Oxide [Magnesium] 500 mg PO DAILY 08/15/18 Metaxalone [Metaxall] 800 mg PO TID 08/15/18 Vit B12/Intrinsic Fact/Folate [Intrinsi Y73-Jxcbov Tablet] 1,000 mg IM MONTHLY 08/15/18 Vit D3/Folic Acid/B2/B6/B12 [Folgard Tablet] 1,000 mg PO DAILY 08/15/18 Docusate Sodium [Colace -] 100 mg PO TID capsule 08/17/18 Pregabalin [Lyrica -] 100 mg PO BID #60 capsule MDD 2 08/20/18 oxyCODONE HCL [Roxicodone -] 5 mg PO Q4H PRN #30 tablet MDD 6 08/20/18 Cyclobenzaprine HCl [Flexeril -] 10 mg PO TID PRN #12 tablet 08/30/18 Oxycodone HCl 10 mg PO QID PRN #12 tablet MDD 4 08/30/18 Cephalexin Monohydrate [Keflex -] 500 mg PO Q6H #27 capsule 12/07/19 Anemia: Yes Asthma: Yes Cardiac Disorders: Yes (HEART MURMUR) COPD: No GI Disorders: Yes (,ibs, DIVERTICULOSIS) HTN: Yes - Surgical History Neurologic Surgery: No Orthopedic Surgery: Yes (FOOT SURGERY AT 10 YEARS OLD,TONSILLECTOMY) - Immunization History Immunization Up to Date: Yes - Psycho Social/Smoking Cessation Hx Smoking Status: No Smoking History: Never smoked Have you smoked in the past 12 months: No Number of Cigarettes Smoked Daily: 0 If you are a former smoker, when did you quit?: 25 years ago Information on smoking cessation initiated: No Hx Alcohol Use: No Drug/Substance Use Hx: No Substance Use Type: None Hx Substance Use Treatment: No *Physical Exam - Vital Signs Last Vital Signs Temp Pulse Resp BP Pulse Ox 97.7 F 79 18 150/86 98 12/07/19 21:23 12/07/19 21:23 12/07/19 21:23 12/07/19 21:23 12/07/19 21:23 Medical Decision Making - Medical Decision Making 12/07/19 21:59 59-year-old female with history of hysterectomy, remote asthma, diverticulosis and hypertension who started having burning with urination tonight. Patient denies any vaginal discharge or complaints. She states that the area is very sensitive given the hysterectomy and the change in hormones. Patient does not look acutely ill. Patient will get UA and urine culture and be reassessed. She has no pelvic pain or tenderness 12/07/19 22:22 UA shows UTI, will put on antibiotics, Discussed issues, findings, results, applicable medications and treatments and follow-up. All these were understood and all questions were answered Discharge - Discharge Information Problems reviewed: Yes Clinical Impression/Diagnosis: UTI (urinary tract infection) Qualifiers: Urinary tract infection type: acute cystitis Hematuria presence: with hematuria Qualified Code(s): N30.01 - Acute cystitis with hematuria Condition: Stable Disposition: HOME - Admission No - Additional Discharge Information Prescriptions: Cephalexin Monohydrate [Keflex -] 500 mg PO Q6H #27 capsule - Follow up/Referral Referrals: Lance Garg MD [Primary Care Provider] - - Patient Discharge Instructions Patient Printed Discharge Instructions: DI for Urinary Tract Infection (UTI) Additional Instructions: Drink 2-3 L of water daily Take the Keflex 500 mg every 6 hours for 7 days take Acidophilus to help prevent yeast infection or stomach upset Return ER if fever, vomiting, feeling sicker Follow-up with your doctor in 2-3 days - Post Discharge Activity
[2019-12-07 22:15] LABS: EPI CELLS 0.3 /HPF (0-5/HPF); HYALINE CASTS 3 /lpf (0-8); PH,URINE 6.5 (5.0-8.0); URINE APPEARANCE TURBID; URINE BACTERIA 4.1 /hpf (NEGATIVE); URINE BILIRUBIN NEGATIVE (NEGATIVE); URINE COLOR YELLOW; URINE GLUCOSE (UA) NEGATIVE (NEGATIVE); URINE KETONE NEGATIVE (NEGATIVE); URINE LEUK ESTERASE 3+ (NEGATIVE); URINE NITRITE NEGATIVE (NEGATIVE); URINE PROTEIN NEGATIVE (NEGATIVE); URINE RBC 15 /hpf (0-4); URINE UROBILINOGEN 0.2 mg/dL (0.2-1.0); URINE WBC 556 /hpf (0-5)
[2019-12-07] MEDS ORDERED: CEPHALEXIN MONOHYDRATE 500 MG CAPSULE (UD) PO ONE (22:23)
[2019-12-07] MEDS ORDERED: CEPHALEXIN MONOHYDRATE 500 MG CAPSULE (UD) ONE (22:27)
== END 2019-12-07 22:32 | disposition home or self-care (01) ==
LOC: JERFT 21:12
DX: N30.00 Acute cystitis without hematuria (principal); I10 Essential (primary) hypertension; K57.90 Diverticulosis of intestine, part unspecified, without perforation or abscess without bleeding; Z87.09 Personal history of other diseases of the respiratory system; Z90.710 Acquired absence of both cervix and uterus; Z88.6 Allergy status to analgesic agent; Z91.013 Allergy to seafood
CPT/HCPCS: 81003; 87086; 99283-25

== ENCOUNTER 2024-03-03 23:08 | Emergency (ER) | payer OTHER ==
[2024-03-03 23:14] VITALS: BP 160/72; PULSE 68; RESP 18; TEMP 97.8; BMI 34.2
[2024-03-04] MEDS ORDERED: METHOCARBAMOL 500 MG TABLET ONE (00:11)
[2024-03-04] MEDS ORDERED: ACETAMINOPHEN 325 MG TABLET (FP) ONE (00:11)
[2024-03-04] MEDS ORDERED: LIDOCAINE 4% PATCH TP ONE (00:12)
[2024-03-04] MEDS: ACETAMINOPHEN 325 MG TABLET (FP) PO ONE (00:18)
[2024-03-04] MEDS: METHOCARBAMOL 500 MG TABLET PO ONE (00:18)
[2024-03-04] MEDS: LIDOCAINE 4% PATCH TP ONE (00:19)
== END 2024-03-04 00:48 | disposition home or self-care (01) ==
LOC: JER 23:08
DX: M54.50 Low back pain, unspecified (principal); M54.2 Cervicalgia; G47.00 Insomnia, unspecified; X50.0XXA Overexertion from strenuous movement or load, initial encounter; Y92.009 Unspecified place in unspecified non-institutional (private) residence as the place of occurrence of the external cause
CPT/HCPCS: 99283-25

== ENCOUNTER 2025-04-16 14:44 | Emergency (ER) | payer OTHER ==
[2025-04-16 15:04] VITALS: BP 150/88; PULSE 98; RESP 18; TEMP 98.3; BMI 35.2
[2025-04-16] MEDS ORDERED: TETRACAINE 0.5% OPHTH SOLN 2 ML BOTTLE ONE (15:25)
[2025-04-16] MEDS: TETRACAINE 0.5% HCL 0.6ML DROPPER.BOTTLE OU ONE (15:55)
[2025-04-16] MEDS ORDERED: ACETAMINOPHEN 500 MG TABLET (FP) ONE (17:21)
[2025-04-16] MEDS: ACETAMINOPHEN 500 MG TABLET (FP) PO ONE (17:28)
[2025-04-16] MEDS ORDERED: BACITRACIN ZINC 15 GM TUBE TOPICAL OINTMENT ONE (17:50)
[2025-04-16] MEDS ORDERED: ERYTHROMYCIN 0.5% OPHTHALMIC OINTMENT 3.5 GM TUBE ONE (17:50)
[2025-04-16] MEDS: ERYTHROMYCIN 0.5% OPHTHALMIC OINTMENT 3.5 GM TUBE OD ONE (17:58)
[2025-04-16] MEDS: BACITRACIN 0.9 GM PACKET TP ONE (17:58)
== END 2025-04-16 18:50 | disposition home or self-care (01) ==
LOC: JERFT 14:44
DX: S20.211A Contusion of right front wall of thorax, initial encounter (principal); S40.012A Contusion of left shoulder, initial encounter; M54.2 Cervicalgia; T59.3X3A Toxic effect of lacrimogenic gas, assault, initial encounter; T26.61XA Corrosion of cornea and conjunctival sac, right eye, initial encounter; T26.62XA Corrosion of cornea and conjunctival sac, left eye, initial encounter; J34.89 Other specified disorders of nose and nasal sinuses; G43.909 Migraine, unspecified, not intractable, without status migrainosus; Y04.0XXA Assault by unarmed brawl or fight, initial encounter; Y92.410 Unspecified street and highway as the place of occurrence of the external cause
CPT/HCPCS: 71046-TC-FY; 71101-TC-RT-FY; 99283-25